=== PATIENT | male | born 1930 | race Caucasian/White ===

== ENCOUNTER 2018-08-04 22:08 | Inpatient (IN) | payer MEDICARE, MEDICAID ==
[2018-08-04] MEDS ORDERED: Sodium Chloride 0.9% 500 ML IV ONE (22:15)
[2018-08-04] MEDS ORDERED: HYDROmorphone 2 MG/ML SDV IVPUSH ONE (22:15)
[2018-08-04] MEDS ORDERED: Ondansetron 4 MG/2 ML SDV IVPUSH ONE (22:16)
--- NOTE | 2018-08-04 22:21 | EDM.PDOC ---
ED HPI GENERAL MEDICAL PROBLEM - General Chief Complaint: Abdominal Pain Stated Complaint: ABD PAIN Time Seen by Provider: 08/04/18 22:16 Source of Information: Reports: Patient - History of Present Illness INITIAL COMMENTS - FREE TEXT/NARRATIVE: Transferred from [facility] with LLQ abdominal pain, vomiting and fever to 101.8. 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: Reports: Acetaminophen - Related Data Allergies Allergy/AdvReac Type Severity Reaction Status Date / Time No Known Allergies Allergy Verified 08/04/18 22:34 Home Meds: Home Meds Acetaminophen [Tylenol] 650 mg PO Q4H PRN 05/21/13 [History] Carboxymethylcellulose Sodium [Refresh Liquigel 1%] 1 drop EYEBOTH TID 05/24/13 [History] Isosorbide Mononitrate [Isosorbide Mononitrate ER] 15 mg PO BEDTIME 05/24/13 [ History] SitaGLIPtin [Januvia] 50 mg PO DAILY 05/24/13 [History] Hydrocortisone/Aloe Vera [Hydrocortisone 1%] 1 applic TOP BID PRN 05/23/14 [ History] Magnesium Hydroxide [Milk of Magnesia] 30 ml PO DAILY PRN 05/23/14 [History] Multivit-Min/FA/Lycopene/Lut [Centrum Silver] 1 tab PO DAILY 05/23/14 [History] Aspirin [Shanika Chewable Aspirin] 81 mg PO DAILY 06/28/14 [History] Clopidogrel [Plavix] 75 mg PO DAILY 06/28/14 [History] Simvastatin 40 mg PO DAILY 06/28/14 [History] Bisacodyl 10 mg RC DAILY PRN 08/04/18 [History] Memantine HCl [Namenda] 10 mg PO BID 08/04/18 [History] Metoprolol Succinate [Toprol XL] 50 mg PO DAILY 08/04/18 [History] amLODIPine [Norvasc] 5 mg PO DAILY 08/04/18 [History] Past Medical History Cardiovascular History: Reports: CAD, High Cholesterol, Hypertension Respiratory History: Reports: COPD (02 dep) Gastrointestinal History: Reports: Diverticulosis, GI Bleed Neurological History: Reports: Alzheimers Disease Endocrine/Metabolic History: Reports: Diabetes, Type II - Past Surgical History Cardiovascular Surgical History: Reports: Coronary Artery Bypass GI Surgical History: Reports: Appendectomy, Cholecystectomy Social & Family History - Tobacco Use Smoking Status *Q: Former Smoker Tobacco Use Within Last Twelve Months: No ED ROS GENERAL - Review of Systems Review Of Systems: ROS reveals no pertinent complaints other than HPI. ( Alzheimer's) ED EXAM, GI/ABD - Physical Exam Exam: See Below Exam Limited By: No Limitations General Appearance: Alert, WD/WN, No Apparent Distress Ears: Normal External Exam Nose: Normal Inspection Throat/Mouth: Normal Oropharynx, No Airway Compromise Head: Atraumatic, Normocephalic Neck: Normal Inspection Respiratory/Chest: No Respiratory Distress, Lungs Clear, Normal Breath Sounds Cardiovascular: Regular Rate, Rhythm, No Murmur GI/Abdominal Exam: Normal Bowel Sounds, Soft, No Distention, Guarding, Tender ( moderate LLQ, mild LUQ) Back Exam: Full Range of Motion Extremities: Normal Range of Motion Neurological: Alert, No Motor/Sensory Deficits Skin Exam: Warm, Dry, Intact Course - Vital Signs Last Recorded V/S: Last Vital Signs Temp 37.4 C 08/04/18 22:08 Pulse 79 08/04/18 22:08 Resp 20 08/04/18 22:08 BP 140/57 L 08/04/18 22:08 Pulse Ox 91 L 08/04/18 22:10 - Orders/Labs/Meds Orders: Active Orders 24 hr Category Date Time Status Admission Status [Patient Status] [ADT] Routine ADT 08/04/18 23:56 Active Morrison Catheter Insertion [Insert Urinary Catheter] [OM. Care 08/04/18 22:30 Ordered PC] Q24H Oxygen Therapy Adult [Oxygen Therapy, ED] [RC] Care 08/04/18 22:10 Active ASDIRECTED Urinary Catheter Assessment [RC] QSHIFT Care 08/04/18 22:16 Active Abdomen Pelvis w Cont [CT] Stat Exams 08/04/18 22:53 Taken CULTURE BLOOD [BC] Urgent Lab 08/04/18 22:20 Received CULTURE BLOOD [BC] Urgent Lab 08/04/18 22:25 Received CULTURE URINE [RM] Stat Lab 08/04/18 22:18 Received Sodium Chloride 0.9% [Saline Flush] Med 08/04/18 22:11 Active 10 ml FLUSH ASDIRECTED PRN Blood Culture x2 Reflex Set [OM.PC] Urgent Oth 08/04/18 22:10 Ordered Saline Lock Insert [OM.PC] Routine Oth 08/04/18 22:11 Ordered Code Status [Resuscitation Status] Stat Resus Stat 08/04/18 22:15 Ordered Medication Orders Sodium Chloride (Saline Flush) 10 ml FLUSH ASDIRECTED PRN PRN Reason: Keep Vein Open Labs: Laboratory Tests 08/04/18 08/04/18 08/04/18 Range/Units 22:18 22:20 22:20 WBC 17.1 H (4.5-12.0) X10-3/uL RBC 5.96 H (4.30-5.75) x10(6)uL Hgb 18.3 H D (11.5-15.5) g/dL Hct 52.3 H (30.0-51.3) % MCV 87.8 (80-96) fL MCH 30.7 (27.7-33.6) pg MCHC 34.9 (32.2-35.4) g/dL RDW 13.6 (11.5-15.5) % Plt Count 171 (125-369) X10(3)uL MPV 7.9 (7.4-10.4) fL Add Manual Diff Yes Neutrophils % (Manual) 70 (46-82) % Band Neutrophils % 5 (0-6) % Lymphocytes % (Manual) 21 (13-37) % Monocytes % (Manual) 4 (4-12) % Sodium 140 (135-145) mmol/L Potassium 4.4 (3.5-5.3) mmol/L Chloride 105 (100-110) mmol/L Carbon Dioxide 26 (21-32) mmol/L BUN 26 H (7-18) mg/dL Creatinine 1.1 (0.70-1.30) mg/dL Est Cr Clr Drug Dosing 46.42 mL/min Estimated GFR (MDRD) > 60 (>60) BUN/Creatinine Ratio 23.6 H (9-20) Glucose 189 H (80-116) mg/dL Lactic Acid (0.4-2.2) mmol/L Calcium 9.0 (8.6-10.2) mg/dL Total Bilirubin 0.7 (0.1-1.3) mg/dL AST 16 (5-25) IU/L ALT 24 (12-36) U/L Alkaline Phosphatase 58 (56-112) IU/L Total Protein 6.5 (6.0-8.0) g/dL Albumin 3.0 L (3.2-4.6) g/dL Globulin 3.5 g/dL Albumin/Globulin Ratio 0.9 Amylase 27 (25-115) U/L Urine Color Yellow (YELLOW) Urine Appearance Slightly cloudy (CLEAR) Urine pH 5.0 (5.0-6.5) Ur Specific [place] 1.020 (1.010-1.025) Urine Protein 500 H (NEGATIVE) mg/dL Urine Glucose (UA) Normal (NEGATIVE) mg/dL Urine Ketones 15 H (NEGATIVE) mg/dL Urine Occult Blood Moderate H (NEGATIVE) Urine Nitrite Negative (NEGATIVE) Urine Bilirubin Small H (NEGATIVE) Urine Urobilinogen Normal (NEGATIVE) mg/dL Ur Leukocyte Esterase Large H (NEGATIVE) Urine RBC 5-10 (0) Urine WBC >100 H (0) Ur Squamous Epith Cells Few H (NS,R,O) Urine Bacteria Moderate H (NS) 08/04/18 Range/Units 22:20 WBC (4.5-12.0) X10-3/uL RBC (4.30-5.75) x10(6)uL Hgb (11.5-15.5) g/dL Hct (30.0-51.3) % MCV (80-96) fL MCH (27.7-33.6) pg MCHC (32.2-35.4) g/dL RDW (11.5-15.5) % Plt Count (125-369) X10(3)uL MPV (7.4-10.4) fL Add Manual Diff Neutrophils % (Manual) (46-82) % Band Neutrophils % (0-6) % Lymphocytes % (Manual) (13-37) % Monocytes % (Manual) (4-12) % Sodium (135-145) mmol/L Potassium (3.5-5.3) mmol/L Chloride (100-110) mmol/L Carbon Dioxide (21-32) mmol/L BUN (7-18) mg/dL Creatinine (0.70-1.30) mg/dL Est Cr Clr Drug Dosing mL/min Estimated GFR (MDRD) (>60) BUN/Creatinine Ratio (9-20) Glucose (80-116) mg/dL Lactic Acid 2.0 (0.4-2.2) mmol/L Calcium (8.6-10.2) mg/dL Total Bilirubin (0.1-1.3) mg/dL AST (5-25) IU/L ALT (12-36) U/L Alkaline Phosphatase (56-112) IU/L Total Protein (6.0-8.0) g/dL Albumin (3.2-4.6) g/dL Globulin g/dL Albumin/Globulin Ratio Amylase (25-115) U/L Urine Color (YELLOW) Urine Appearance (CLEAR) Urine pH (5.0-6.5) Ur Specific [place] (1.010-1.025) Urine Protein (NEGATIVE) mg/dL Urine Glucose (UA) (NEGATIVE) mg/dL Urine Ketones (NEGATIVE) mg/dL Urine Occult Blood (NEGATIVE) Urine Nitrite (NEGATIVE) Urine Bilirubin (NEGATIVE) Urine Urobilinogen (NEGATIVE) mg/dL Ur Leukocyte Esterase (NEGATIVE) Urine RBC (0) Urine WBC (0) Ur Squamous Epith Cells (NS,R,O) Urine Bacteria (NS) Meds: Medications Generic Name Dose Route Start Last Admin Trade Name Freq PRN Reason Stop Dose Admin Sodium Chloride 10 ml 08/04/18 22:11 Saline Flush FLUSH ASDIRECTED PRN Keep Vein Open Discontinued Medications Generic Name Dose Route Start Last Admin Trade Name Freq PRN Reason Stop Dose Admin Hydromorphone HCl 0.5 mg 08/04/18 22:15 08/04/18 23:21 Dilaudid IVPUSH 08/04/18 22:16 0.5 mg ONETIME ONE Administration Sodium Chloride 500 mls @ 500 mls/hr 08/04/18 22:15 08/04/18 23:20 Normal Saline IV 08/04/18 23:14 500 mls/hr .BOLUS ONE Administration Piperacillin Sod/Tazobactam 50 mls @ 100 mls/hr 08/04/18 23:22 08/04/18 23:27 Sod 3.375 gm/ Sodium Chloride IV 08/04/18 23:51 100 mls/hr .ONCE ONE Administration Iopamidol 75 ml 08/04/18 22:59 08/04/18 23:15 Isovue-370 (76%) IV 08/04/18 23:00 75 ml ONETIME ONE Administration Ondansetron HCl 4 mg 08/04/18 22:16 08/04/18 23:21 Zofran IVPUSH 08/04/18 22:17 4 mg ONETIME ONE Administration - Radiology Interpretation Free Text/Narrative:: CT Abd/Pelvis w/ IV contrast: Two small pancreatic pseudocysts, increase size left adrenal myelolipoma, diverticulosis, no signs of diverticulitis, prostate enlargement, moderate thickening of the wall of the urinary bladder. CT Results Date: 08/04/18 CT Results Time: 23:23 Departure - Departure Time of Disposition: 00:01 Disposition: Admitted As Inpatient 66 Condition: Fair Clinical Impression: Fever Qualifiers: Fever type: unspecified Qualified Code(s): R50.9 - Fever, unspecified Abdominal pain Qualifiers: Abdominal location: left lower quadrant Qualified Code(s): R10.32 - Left lower quadrant pain - Discharge Information *PRESCRIPTION DRUG MONITORING PROGRAM REVIEWED*: No *COPY OF PRESCRIPTION DRUG MONITORING REPORT IN PATIENT ROSEMARIE: Not Applicable Referrals: Hernan Dhaliwal MD [Primary Care Provider] - Forms: ED Department Discharge - My Orders Last 24 Hours: My Active Orders 08/04/18 22:10 Oxygen Therapy Adult [Oxygen Therapy, ED] [RC] ASDIRECTED Blood Culture x2 Reflex Set [OM.PC] Urgent 08/04/18 22:11 Sodium Chloride 0.9% [Saline Flush] 10 ml FLUSH ASDIRECTED PRN Saline Lock Insert [OM.PC] Routine 08/04/18 22:15 Code Status [Resuscitation Status] Stat 08/04/18 22:16 Urinary Catheter Assessment [RC] QSHIFT 08/04/18 22:18 CULTURE URINE [RM] Stat 08/04/18 22:20 CULTURE BLOOD [BC] Urgent 08/04/18 22:25 CULTURE BLOOD [BC] Urgent 08/04/18 22:30 Morrison Catheter Insertion [Insert Urinary Catheter] [OM.PC] Q24H 08/04/18 22:53 Abdomen Pelvis w Cont [CT] Stat 08/04/18 23:56 Admission Status [Patient Status] [ADT] Routine - Assessment/Plan Last 24 Hours: My Active Orders 08/04/18 22:10 Oxygen Therapy Adult [Oxygen Therapy, ED] [RC] ASDIRECTED Blood Culture x2 Reflex Set [OM.PC] Urgent 08/04/18 22:11 Sodium Chloride 0.9% [Saline Flush] 10 ml FLUSH ASDIRECTED PRN Saline Lock Insert [OM.PC] Routine 08/04/18 22:15 Code Status [Resuscitation Status] Stat 08/04/18 22:16 Urinary Catheter Assessment [RC] QSHIFT 08/04/18 22:18 CULTURE URINE [RM] Stat 08/04/18 22:20 CULTURE BLOOD [BC] Urgent 08/04/18 22:25 CULTURE BLOOD [BC] Urgent 08/04/18 22:30 Morrison Catheter Insertion [Insert Urinary Catheter] [OM.PC] Q24H 08/04/18 22:53 Abdomen Pelvis w Cont [CT] Stat 08/04/18 23:56 Admission Status [Patient Status] [ADT] Routine
[2018-08-04] MEDS ORDERED: Iopamidol 755 Mg/ML 75 ML Bottle IV ONE (22:59)
[2018-08-04] MEDS ORDERED: Piperacillin/Tazobactam 3.375 GM in Sodium Chloride 0.9% 50 ML IV ONE (23:22)
[2018-08-05] MEDS ORDERED: Ondansetron 4 MG/2 ML SDV IVPUSH PRN (00:09)
[2018-08-05] MEDS ORDERED: HYDROmorphone 2 MG/ML SDV IVPUSH PRN (00:09)
[2018-08-05] MEDS ORDERED: Sodium Chloride 0.9% 1,000 ML IV SCH (00:15)
[2018-08-05] MEDS: Piperacillin/Tazobactam 3.375 GM in Sodium Chloride 0.9% 50 ML IV SCH ×4 (04:56→17:33)
[2018-08-05] MEDS ORDERED: Simvastatin 40 MG Tab PO SCH (09:00)
[2018-08-05] MEDS ORDERED: Metoprolol Succinate 25 MG Tab.ER PO SCH (09:00)
[2018-08-05] MEDS: Acetaminophen 325 MG Tab PO PRN ×2 (09:49→16:19)
[2018-08-05] MEDS: Aspirin 81 MG Tab.Chew PO SCH (09:50)
[2018-08-05] MEDS: Clopidogrel 75 MG Tab PO SCH (09:51)
[2018-08-05] MEDS: Memantine 10 MG Tab PO SCH ×2 (09:51→21:42)
[2018-08-05] MEDS: amLODIPine 5 MG Tab PO SCH (09:51)
[2018-08-05] MEDS: Carboxymethylcellulose Sodium 1% Ophth Gel 15 ML Bottle EYEBOTH SCH ×3 (09:52→21:42)
[2018-08-05] MEDS: Metoprolol Succinate 50 MG Tab.ER PO SCH (09:52)
--- NOTE | 2018-08-05 09:56 | PCM.HP ---
H&P History of Present Illness - General Date of Service: 08/05/18 Admit Problem/Dx: Admission Diagnosis/Problem Admission Diagnosis/Problem UTI, Urinary tract infectious disease Source of Information: Patient History Limitations: Reports: No Limitations - History of Present Illness Initial Comments - Free Text/Narative: Freeman is an 88 yo us[facility] patient with abdominal pain of sudden onset,orn day duration, associated with left upper quadrant radiating down to the left lower quadrant ,with one episode of vomiting, but no stool disturbance. No illness symptoms has had a cough and fever upon presentation to the ER. Freeman is hard of hearing and history difficult to obtain. - Related Data Allergies/Adverse Reactions: Allergies Allergy/AdvReac Type Severity Reaction Status Date / Time No Known Allergies Allergy Verified 08/04/18 22:34 Home Medications: Home Meds Acetaminophen [Tylenol] 650 mg PO Q4H PRN 05/21/13 [History] Carboxymethylcellulose Sodium [Refresh Liquigel 1%] 1 drop EYEBOTH TID 05/24/13 [History] Isosorbide Mononitrate [Isosorbide Mononitrate ER] 15 mg PO WITHDINNER 05/24/13 [History] SitaGLIPtin [Januvia] 50 mg PO DAILY 05/24/13 [History] Hydrocortisone/Aloe Vera [Hydrocortisone 1%] 1 applic TOP BID PRN 05/23/14 [ History] Magnesium Hydroxide [Milk of Magnesia] 30 ml PO DAILY PRN 05/23/14 [History] Multivit-Min/FA/Lycopene/Lut [Centrum Silver] 1 tab PO DAILY 05/23/14 [History] Clopidogrel [Plavix] 75 mg PO DAILY 06/28/14 [History] Simvastatin 20 mg PO WITHDINNER 06/28/14 [History] Bisacodyl 10 mg RC DAILY PRN 08/04/18 [History] Memantine HCl [Namenda] 10 mg PO BID 08/04/18 [History] Metoprolol Succinate [Toprol XL] 50 mg PO DAILY 08/04/18 [History] amLODIPine [Norvasc] 5 mg PO DAILY 08/04/18 [History] Aspirin [Halfprin] 81 mg PO DAILY 08/05/18 [History] Triamcinolone Acetonide [Triamcinolone Acetonide 0.1% Crm] 1 applic TOP BID PRN 08/05/18 [History] Past Medical History HEENT History: Reports: Cataract, Hard of Hearing, Impaired Vision, Macular Degeneration Cardiovascular History: Reports: CAD, High Cholesterol, Hypertension Respiratory History: Reports: COPD Gastrointestinal History: Reports: Diverticulosis, GI Bleed Musculoskeletal History: Reports: Arthritis Neurological History: Reports: Alzheimers Disease Psychiatric History: Reports: Dementia Endocrine/Metabolic History: Reports: Diabetes, Type II Other Endocrine/Metabolic History: Hyperlipidemia - Past Surgical History HEENT Surgical History: Reports: Cataract Surgery Cardiovascular Surgical History: Reports: Coronary Artery Bypass GI Surgical History: Reports: Appendectomy, Cholecystectomy Social & Family History - Family History Family Medical History: Noncontributory - Tobacco Use Smoking Status *Q: Former Smoker Used Tobacco, but Quit: No Second Hand Smoke Exposure: No - Caffeine Use Caffeine Use: Reports: Coffee - Recreational Drug Use Recreational Drug Use: No H&P Review of Systems - Review of Systems: Review Of Systems: ROS reveals no pertinent complaints other than HPI. Exam - Exam Exam: See Below - Vital Signs Vital Signs: Last Vital Signs Temp 98.1 F 08/05/18 04:05 Pulse 68 08/05/18 09:52 Resp 19 08/05/18 04:05 BP 112/58 L 08/05/18 09:52 Pulse Ox 91 L 08/05/18 07:49 Weight: 76.657 kg - Exam Quality Assessment: Supplemental Oxygen General: Alert, Oriented HEENT: PERRLA Neck: Supple Lungs: Rales Cardiovascular: Regular Rate GI/Abdominal Exam: Normal Bowel Sounds, Distended, Tender (LLQ). No: Non-Tender (Male) Exam: No Hernia Back Exam: Normal Inspection Extremities: Normal Inspection Skin: Warm Neurological: Cranial Nerves Intact Psychiatric: Alert, Normal Affect - Patient Data Lab Results Last 24 hrs: Laboratory Results - last 24 hr 08/04/18 08/04/18 08/04/18 Range/Units 22:18 22:20 22:20 WBC 17.1 H (4.5-12.0) X10-3/uL RBC 5.96 H (4.30-5.75) x10(6)uL Hgb 18.3 H D (11.5-15.5) g/dL Hct 52.3 H (30.0-51.3) % MCV 87.8 (80-96) fL MCH 30.7 (27.7-33.6) pg MCHC 34.9 (32.2-35.4) g/dL RDW 13.6 (11.5-15.5) % Plt Count 171 (125-369) X10(3)uL MPV 7.9 (7.4-10.4) fL Add Manual Diff Yes Neutrophils % (Manual) 70 (46-82) % Band Neutrophils % 5 (0-6) % Lymphocytes % (Manual) 21 (13-37) % Monocytes % (Manual) 4 (4-12) % Sodium 140 (135-145) mmol/L Potassium 4.4 (3.5-5.3) mmol/L Chloride 105 (100-110) mmol/L Carbon Dioxide 26 (21-32) mmol/L BUN 26 H (7-18) mg/dL Creatinine 1.1 (0.70-1.30) mg/dL Est Cr Clr Drug Dosing 46.42 mL/min Estimated GFR (MDRD) > 60 (>60) BUN/Creatinine Ratio 23.6 H (9-20) Glucose 189 H (80-116) mg/dL Lactic Acid (0.4-2.2) mmol/L Calcium 9.0 (8.6-10.2) mg/dL Total Bilirubin 0.7 (0.1-1.3) mg/dL AST 16 (5-25) IU/L ALT 24 (12-36) U/L Alkaline Phosphatase 58 (56-112) IU/L Total Protein 6.5 (6.0-8.0) g/dL Albumin 3.0 L (3.2-4.6) g/dL Globulin 3.5 g/dL Albumin/Globulin Ratio 0.9 Amylase 27 (25-115) U/L Urine Color Yellow (YELLOW) Urine Appearance Slightly cloudy (CLEAR) Urine pH 5.0 (5.0-6.5) Ur Specific [place] 1.020 (1.010-1.025) Urine Protein 500 H (NEGATIVE) mg/dL Urine Glucose (UA) Normal (NEGATIVE) mg/dL Urine Ketones 15 H (NEGATIVE) mg/dL Urine Occult Blood Moderate H (NEGATIVE) Urine Nitrite Negative (NEGATIVE) Urine Bilirubin Small H (NEGATIVE) Urine Urobilinogen Normal (NEGATIVE) mg/dL Ur Leukocyte Esterase Large H (NEGATIVE) Urine RBC 5-10 (0) Urine WBC >100 H (0) Ur Squamous Epith Cells Few H (NS,R,O) Urine Bacteria Moderate H (NS) 08/04/18 08/05/18 08/05/18 Range/Units 22:20 06:05 06:05 WBC 17.5 H (4.5-12.0) X10-3/uL RBC 5.32 (4.30-5.75) x10(6)uL Hgb 16.4 H (11.5-15.5) g/dL Hct 47.1 (30.0-51.3) % MCV 88.6 (80-96) fL MCH 30.8 (27.7-33.6) pg MCHC 34.8 (32.2-35.4) g/dL RDW 13.5 (11.5-15.5) % Plt Count 160 (125-369) X10(3)uL MPV 8.3 (7.4-10.4) fL Add Manual Diff Yes Neutrophils % (Manual) 76 (46-82) % Band Neutrophils % 1 (0-6) % Lymphocytes % (Manual) 22 (13-37) % Monocytes % (Manual) 1 L (4-12) % Sodium 141 (135-145) mmol/L Potassium 4.3 (3.5-5.3) mmol/L Chloride 107 (100-110) mmol/L Carbon Dioxide 25 (21-32) mmol/L BUN 26 H (7-18) mg/dL Creatinine 1.2 (0.70-1.30) mg/dL Est Cr Clr Drug Dosing 39.78 mL/min Estimated GFR (MDRD) 57 L (>60) BUN/Creatinine Ratio 21.7 H (9-20) Glucose 179 H (80-116) mg/dL Lactic Acid 2.0 (0.4-2.2) mmol/L Calcium 8.4 L (8.6-10.2) mg/dL Total Bilirubin (0.1-1.3) mg/dL AST (5-25) IU/L ALT (12-36) U/L Alkaline Phosphatase (56-112) IU/L Total Protein (6.0-8.0) g/dL Albumin (3.2-4.6) g/dL Globulin g/dL Albumin/Globulin Ratio Amylase (25-115) U/L Urine Color (YELLOW) Urine Appearance (CLEAR) Urine pH (5.0-6.5) Ur Specific [place] (1.010-1.025) Urine Protein (NEGATIVE) mg/dL Urine Glucose (UA) (NEGATIVE) mg/dL Urine Ketones (NEGATIVE) mg/dL Urine Occult Blood (NEGATIVE) Urine Nitrite (NEGATIVE) Urine Bilirubin (NEGATIVE) Urine Urobilinogen (NEGATIVE) mg/dL Ur Leukocyte Esterase (NEGATIVE) Urine RBC (0) Urine WBC (0) Ur Squamous Epith Cells (NS,R,O) Urine Bacteria (NS) Result Diagrams: 08/05/18 06:05 08/05/18 06:05 - Problem List (1) Abdominal pain SNOMED Code(s): 14607056 ICD Code: R10.9 - UNSPECIFIED ABDOMINAL PAIN Status: Acute Current Visit : Yes Qualifiers: Abdominal location: left lower quadrant Qualified Code(s): R10.32 - Left lower quadrant pain (2) CAP (community acquired pneumonia) SNOMED Code(s): 304872357 ICD Code: J18.9 - PNEUMONIA, UNSPECIFIED ORGANISM Status: Acute Current Visit: Yes Qualifiers: Laterality: left (3) Hard of hearing SNOMED Code(s): 35851652 ICD Code: H91.90 - UNSPECIFIED HEARING LOSS, UNSPECIFIED EAR Status: Chronic Current Visit: Yes Qualifiers: Hearing loss type: unspecified (4) UTI (urinary tract infection) SNOMED Code(s): 80451001 ICD Code: N39.0 - URINARY TRACT INFECTION, SITE NOT SPECIFIED Status: Acute Current Visit: Yes Qualifiers: Urinary tract infection type: acute pyelonephritis Qualified Code(s): N10 - Acute pyelonephritis (5) Diabetes mellitus SNOMED Code(s): 21901649 ICD Code: E11.9 - TYPE 2 DIABETES MELLITUS WITHOUT COMPLICATIONS Status: Acute Current Visit: No Problem List Initiated/Reviewed/Updated: Yes Orders Last 24hrs: Active Orders 24 hr Category Date Time Status Admission Status [Patient Status] [ADT] Routine ADT 08/04/18 23:56 Active Antiembolic Devices [RC] .Routine Care 08/05/18 00:06 Active Morrison Catheter Insertion [Insert Urinary Catheter] [OM. Care 08/04/18 22:30 Ordered PC] Q24H Height and Weight [RC] UPON Care 08/05/18 00:05 Active Intake and Output [RC] QSHIFT Care 08/05/18 00:05 Active Notify Provider Consults [RC] ASDIRECTED Care 08/05/18 09:54 Ordered Notify Provider Vital Signs [RC] ASDIRECTED Care 08/05/18 00:06 Active Oxygen Therapy [RC] CONTINUOUS Care 08/05/18 00:05 Active Pulse Oximetry [RC] PRN Care 08/05/18 00:05 Active Up With Assistance [RC] ASDIRECTED Care 08/05/18 00:05 Active VTE/DVT Education [RC] Click to Edit Care 08/05/18 00:06 Active Vital Signs [RC] Q4H Care 08/05/18 00:05 Active Consult to Physician [CONS] Urgent Cons 08/05/18 09:54 Ordered Full Liquid Diet [DIET] Diet 08/05/18 Breakfast Active Abdomen Pelvis w Cont [CT] Stat Exams 08/04/18 22:53 Taken Chest 2V [CR] Routine Exams 08/05/18 09:52 Ordered C-REACTIVE PROTEIN [CHEM] AM Lab 08/06/18 05:11 Ordered CBC WITH AUTO DIFF [HEME] AM Lab 08/06/18 05:11 Ordered COMPREHENSIVE METABOLIC PN,CMP [CHEM] AM Lab 08/06/18 05:11 Ordered CULTURE BLOOD [BC] Urgent Lab 08/04/18 22:20 Received CULTURE BLOOD [BC] Urgent Lab 08/04/18 22:25 Received CULTURE URINE [RM] Stat Lab 08/04/18 22:18 Received Acetaminophen [Tylenol] Med 08/05/18 00:08 Active 650 mg PO Q6H PRN Aspirin Med 08/05/18 09:00 Active 81 mg PO DAILY Carboxymethylcellulose Sodium [Refresh Liquigel 1%] Med 08/05/18 09:00 Active 0 ml EYEBOTH TID Clopidogrel [Plavix] Med 08/05/18 09:00 Active 75 mg PO DAILY Isosorbide Mononitrate [Imdur] Med 08/05/18 18:00 Active 15 mg PO WITHDINNER Ketorolac [Toradol] Med 08/05/18 09:55 Ordered 15 mg IVPUSH Q6H PRN Memantine [Namenda] Med 08/05/18 09:00 Active 10 mg PO BID Metoprolol Succinate [Toprol XL] Med 08/05/18 09:00 Active 50 mg PO DAILY Ondansetron [Zofran] Med 08/05/18 00:09 Active 4 mg IVPUSH Q6H PRN Piperacillin/Tazobactam [Zosyn] 3.375 gm Med 08/05/18 06:00 Active Sodium Chloride 0.9% [Normal Saline] 50 ml IV Q6H SitaGLIPtin [Januvia] Med 08/05/18 09:00 Active 50 mg PO DAILY Sodium Chloride 0.9% [Normal Saline] 1,000 ml Med 08/05/18 00:15 Active IV ASDIRECTED Sodium Chloride 0.9% [Saline Flush] Med 08/04/18 22:11 Active 10 ml FLUSH ASDIRECTED PRN amLODIPine [Norvasc] Med 08/05/18 09:00 Active 5 mg PO DAILY Blood Culture x2 Reflex Set [OM.PC] Urgent Oth 08/04/18 22:10 Ordered DVT/VTE Prophylaxis Reflex [OM.PC] Per Unit Routine Oth 08/05/18 00:05 Ordered Saline Lock Insert [OM.PC] Routine Oth 08/04/18 22:11 Ordered Code Status [Resuscitation Status] Stat Resus Stat 08/04/18 22:15 Ordered Medication Orders Acetaminophen (Tylenol) 650 mg PO Q6H PRN PRN Reason: Fever Last Admin: 08/05/18 09:49 Dose: 650 mg Amlodipine Besylate (Norvasc) 5 mg PO DAILY [facility] Last Admin: 08/05/18 09:51 Dose: 5 mg Artificial Tears (Refresh Liquigel 1%) 0 ml EYEBOTH TID [facility] Last Admin: 08/05/18 09:52 Dose: 1 drop Aspirin (Aspirin) 81 mg PO DAILY [facility] Last Admin: 08/05/18 09:50 Dose: 81 mg Clopidogrel Bisulfate (Plavix) 75 mg PO DAILY [facility] Last Admin: 08/05/18 09:51 Dose: 75 mg Sodium Chloride (Normal Saline) 1,000 mls @ 100 mls/hr IV ASDIRECTED [facility] Last Admin: 08/05/18 01:13 Dose: 100 mls/hr Piperacillin Sod/Tazobactam (Sod 3.375 gm/ Sodium Chloride) 50 mls @ 100 mls/ hr IV Q6H [facility] Last Admin: 08/05/18 05:01 Dose: Not Given Admin: 08/05/18 04:56 Dose: 100 mls/hr Isosorbide Mononitrate (Imdur) [facility] Ketorolac Tromethamine (Toradol) 15 mg IVPUSH Q6H PRN PRN Reason: Pain Stop: 08/10/18 09:55 Memantine (Namenda) 10 mg PO BID [facility] Last Admin: 08/05/18 09:51 Dose: 10 mg Metoprolol Succinate (Toprol Xl) 50 mg PO DAILY [facility] Last Admin: 08/05/18 09:52 Dose: 50 mg Ondansetron HCl (Zofran) 4 mg IVPUSH Q6H PRN PRN Reason: Nausea/Vomiting Sitagliptin Phosphate (Januvia) 50 mg PO DAILY [facility] Last Admin: 08/05/18 09:51 Dose: 50 mg Sodium Chloride (Saline Flush) 10 ml FLUSH ASDIRECTED PRN PRN Reason: Keep Vein Open Assessment/Plan Comment:: Chest x-ray done today showed some left upper lobe pneumonia possibly CHF. I will give a one-time dose of Lasix, and continue Zosyn for antibiotic. Consulted Dr. Negron for the abdominal tenderness, since it is out of portion lab findings. The CT was fairly unremarkable.
[2018-08-05] MEDS: Ketorolac 30 MG/ML SDV IVPUSH PRN ×2 (12:03→20:07)
[2018-08-05] MEDS: Sodium Chloride 0.9% 10 ML Syringe FLUSH PRN ×3 (12:03→20:06)
--- NOTE | 2018-08-05 13:13 | CR ---
INDICATION: Abdominal pain, fever, question community acquired pneumonia. CHEST PA AND LATERAL: AP and lateral views of the chest were obtained and compared with 05/24/14 and 05/17/11 again revealing the heart to be enlarged with post-median sternotomy change. Diminished bone density suggests osteoporosis but should be correlated clinically. Relatively poor inspiration emphasizes markings without a definite active infiltrate or effusion however, the upper lung field and pulmonary vasculature does appear to be slightly prominent on the left raising the question of a mild degree of CHF. Also there may be infiltrate in the left lower lobe compatible with a pneumonia in that area. IMPRESSION: 1. Findings suggest possibility of pneumonia at the left lower lobe. 2. Cannot exclude a mild degree of CHF in a patient with ASHD and cardiomegaly who is post median sternotomy. 3. Probable osteoporosis--correlate clinically. Report was called to Dr. Rowe at 1145 hours [facility]
--- NOTE | 2018-08-05 13:45 | PCM.CONS ---
H&P History of Present Illness - General Date of Service: 08/05/18 Admit Problem/Dx: Admission Diagnosis/Problem Admission Diagnosis/Problem UTI, Urinary tract infectious disease Source of Information: Patient, Old Records History Limitations: Reports: Altered Mental Status - History of Present Illness Duration of Symptoms: Reports: Day(s): (2) Location: Reports: Abdomen (LLQ) Quality: Reports: Sharp Severity: Severe Worsens with: Reports: Movement Associated Symptoms: Denies: Nausea/Vomiting (since admitted) Left Lower Abdomen Pain Score (Numeric/FACES): 5 - Related Data Allergies/Adverse Reactions: Allergies Allergy/AdvReac Type Severity Reaction Status Date / Time No Known Allergies Allergy Verified 08/04/18 22:34 Home Medications: Home Meds Acetaminophen [Tylenol] 650 mg PO Q4H PRN 05/21/13 [History] Carboxymethylcellulose Sodium [Refresh Liquigel 1%] 1 drop EYEBOTH TID 05/24/13 [History] Isosorbide Mononitrate [Isosorbide Mononitrate ER] 15 mg PO WITHDINNER 05/24/13 [History] SitaGLIPtin [Januvia] 50 mg PO DAILY 05/24/13 [History] Hydrocortisone/Aloe Vera [Hydrocortisone 1%] 1 applic TOP BID PRN 05/23/14 [ History] Magnesium Hydroxide [Milk of Magnesia] 30 ml PO DAILY PRN 05/23/14 [History] Multivit-Min/FA/Lycopene/Lut [Centrum Silver] 1 tab PO DAILY 05/23/14 [History] Clopidogrel [Plavix] 75 mg PO DAILY 06/28/14 [History] Simvastatin 20 mg PO WITHDINNER 06/28/14 [History] Bisacodyl 10 mg RC DAILY PRN 08/04/18 [History] Memantine HCl [Namenda] 10 mg PO BID 08/04/18 [History] Metoprolol Succinate [Toprol XL] 50 mg PO DAILY 08/04/18 [History] amLODIPine [Norvasc] 5 mg PO DAILY 08/04/18 [History] Aspirin [Halfprin] 81 mg PO DAILY 08/05/18 [History] Triamcinolone Acetonide [Triamcinolone Acetonide 0.1% Crm] 1 applic TOP BID PRN 08/05/18 [History] Past Medical History HEENT History: Reports: Cataract, Hard of Hearing, Impaired Vision, Macular Degeneration Cardiovascular History: Reports: CAD, High Cholesterol, Hypertension Respiratory History: Reports: COPD Gastrointestinal History: Reports: Diverticulosis, GI Bleed Musculoskeletal History: Reports: Arthritis Neurological History: Reports: Alzheimers Disease Psychiatric History: Reports: Dementia Endocrine/Metabolic History: Reports: Diabetes, Type II Other Endocrine/Metabolic History: Hyperlipidemia - Past Surgical History HEENT Surgical History: Reports: Cataract Surgery Cardiovascular Surgical History: Reports: Coronary Artery Bypass GI Surgical History: Reports: Appendectomy, Cholecystectomy Social & Family History - Family History Family Medical History: Noncontributory - Tobacco Use Smoking Status *Q: Former Smoker Used Tobacco, but Quit: No Second Hand Smoke Exposure: No - Caffeine Use Caffeine Use: Reports: Coffee - Recreational Drug Use Recreational Drug Use: No H&P Review of Systems - Review of Systems: Review Of Systems: See Below General: Reports: Fever Pulmonary: Reports: Shortness of Breath Cardiovascular: Reports: No Symptoms Gastrointestinal: Reports: Abdominal Pain (LLQ), Other (2 BMs today) Psychiatric: Reports: Confusion Exam - Exam Exam: See Below - Vital Signs Vital Signs: Last Vital Signs Temp 98.1 F 08/05/18 04:05 Pulse 68 08/05/18 09:52 Resp 19 08/05/18 04:05 BP 112/58 L 08/05/18 09:52 Pulse Ox 91 L 08/05/18 07:49 Weight: 76.657 kg - Exam GI/Abdominal Exam: Soft, No Mass, Tender (in LLQ). No: Hernia - Patient Data Lab Results Last 24 hrs: Laboratory Results - last 24 hr 08/04/18 08/04/18 08/04/18 Range/Units 22:18 22:20 22:20 WBC 17.1 H (4.5-12.0) X10-3/uL RBC 5.96 H (4.30-5.75) x10(6)uL Hgb 18.3 H D (11.5-15.5) g/dL Hct 52.3 H (30.0-51.3) % MCV 87.8 (80-96) fL MCH 30.7 (27.7-33.6) pg MCHC 34.9 (32.2-35.4) g/dL RDW 13.6 (11.5-15.5) % Plt Count 171 (125-369) X10(3)uL MPV 7.9 (7.4-10.4) fL Add Manual Diff Yes Neutrophils % (Manual) 70 (46-82) % Band Neutrophils % 5 (0-6) % Lymphocytes % (Manual) 21 (13-37) % Monocytes % (Manual) 4 (4-12) % Sodium 140 (135-145) mmol/L Potassium 4.4 (3.5-5.3) mmol/L Chloride 105 (100-110) mmol/L Carbon Dioxide 26 (21-32) mmol/L BUN 26 H (7-18) mg/dL Creatinine 1.1 (0.70-1.30) mg/dL Est Cr Clr Drug Dosing 46.42 mL/min Estimated GFR (MDRD) > 60 (>60) BUN/Creatinine Ratio 23.6 H (9-20) Glucose 189 H (80-116) mg/dL Lactic Acid (0.4-2.2) mmol/L Calcium 9.0 (8.6-10.2) mg/dL Total Bilirubin 0.7 (0.1-1.3) mg/dL AST 16 (5-25) IU/L ALT 24 (12-36) U/L Alkaline Phosphatase 58 (56-112) IU/L Total Protein 6.5 (6.0-8.0) g/dL Albumin 3.0 L (3.2-4.6) g/dL Globulin 3.5 g/dL Albumin/Globulin Ratio 0.9 Amylase 27 (25-115) U/L Urine Color Yellow (YELLOW) Urine Appearance Slightly cloudy (CLEAR) Urine pH 5.0 (5.0-6.5) Ur Specific [place] 1.020 (1.010-1.025) Urine Protein 500 H (NEGATIVE) mg/dL Urine Glucose (UA) Normal (NEGATIVE) mg/dL Urine Ketones 15 H (NEGATIVE) mg/dL Urine Occult Blood Moderate H (NEGATIVE) Urine Nitrite Negative (NEGATIVE) Urine Bilirubin Small H (NEGATIVE) Urine Urobilinogen Normal (NEGATIVE) mg/dL Ur Leukocyte Esterase Large H (NEGATIVE) Urine RBC 5-10 (0) Urine WBC >100 H (0) Ur Squamous Epith Cells Few H (NS,R,O) Urine Bacteria Moderate H (NS) 08/04/18 08/05/18 08/05/18 Range/Units 22:20 06:05 06:05 WBC 17.5 H (4.5-12.0) X10-3/uL RBC 5.32 (4.30-5.75) x10(6)uL Hgb 16.4 H (11.5-15.5) g/dL Hct 47.1 (30.0-51.3) % MCV 88.6 (80-96) fL MCH 30.8 (27.7-33.6) pg MCHC 34.8 (32.2-35.4) g/dL RDW 13.5 (11.5-15.5) % Plt Count 160 (125-369) X10(3)uL MPV 8.3 (7.4-10.4) fL Add Manual Diff Yes Neutrophils % (Manual) 76 (46-82) % Band Neutrophils % 1 (0-6) % Lymphocytes % (Manual) 22 (13-37) % Monocytes % (Manual) 1 L (4-12) % Sodium 141 (135-145) mmol/L Potassium 4.3 (3.5-5.3) mmol/L Chloride 107 (100-110) mmol/L Carbon Dioxide 25 (21-32) mmol/L BUN 26 H (7-18) mg/dL Creatinine 1.2 (0.70-1.30) mg/dL Est Cr Clr Drug Dosing 39.78 mL/min Estimated GFR (MDRD) 57 L (>60) BUN/Creatinine Ratio 21.7 H (9-20) Glucose 179 H (80-116) mg/dL Lactic Acid 2.0 (0.4-2.2) mmol/L Calcium 8.4 L (8.6-10.2) mg/dL Total Bilirubin (0.1-1.3) mg/dL AST (5-25) IU/L ALT (12-36) U/L Alkaline Phosphatase (56-112) IU/L Total Protein (6.0-8.0) g/dL Albumin (3.2-4.6) g/dL Globulin g/dL Albumin/Globulin Ratio Amylase (25-115) U/L Urine Color (YELLOW) Urine Appearance (CLEAR) Urine pH (5.0-6.5) Ur Specific Gur[place] (1.010-1.025) Urine Protein (NEGATIVE) mg/dL Urine Glucose (UA) (NEGATIVE) mg/dL Urine Ketones (NEGATIVE) mg/dL Urine Occult Blood (NEGATIVE) Urine Nitrite (NEGATIVE) Urine Bilirubin (NEGATIVE) Urine Urobilinogen (NEGATIVE) mg/dL Ur Leukocyte Esterase (NEGATIVE) Urine RBC (0) Urine WBC (0) Ur Squamous Epith Cells (NS,R,O) Urine Bacteria (NS) Result Diagrams: 08/06/18 06:55 08/06/18 06:55 Imaging Impressions Last 24 hrs: CT scan reviewed and i do not see strong evidence of diverticulitis Consult PN Assessment/Plan Procedures: Procedures BLOOD TYPING SEROLOGIC ABO (05/23/14) BLOOD TYPING SEROLOGIC RH(D) (05/23/14) CATARACT SURG W/IOL 1 STAGE (06/29/13) CHEST X-RAY 2VW FRONTAL&LATL (05/23/14) COLONOSCOPY W/LESION REMOVAL (06/29/14) COMPATIBILITY TEST ANTIGLOB (05/23/14) COMPATIBILITY TEST SPIN (05/23/14) COMPLETE CBC W/AUTO DIFF WBC (05/23/14) COMPREHEN METABOLIC PANEL (05/23/14) EMERGENCY DEPT VISIT (05/23/14) EMERGENCY DEPT VISIT (05/23/14) HEMOGLOBIN (05/23/14) HYDRATION IV INFUSION INIT (05/23/14) METABOLIC PANEL TOTAL CA (05/23/14) PROTHROMBIN TIME (05/23/14) RBC ANTIBODY SCREEN (05/23/14) ROUTINE VENIPUNCTURE (05/23/14) TISSUE EXAM BY PATHOLOGIST (06/29/14) Problem List Initiated/Reviewed/Updated: Yes Plan: Suspect diverticulitis wven though CT scan does not show strong evidence of it. Would continue IV antibiotics and pain meds, Recheck WBC in am. Will folloew
[2018-08-05] MEDS ORDERED: Furosemide 20 MG/2 ML VIAL IVPUSH ONE (17:13)
[2018-08-05] MEDS: Isosorbide Mononitrate 30 MG Tab.ER PO SCH (19:07)
[2018-08-06] MEDS: Piperacillin/Tazobactam 3.375 GM in Sodium Chloride 0.9% 50 ML IV SCH ×2 (00:05→06:22)
[2018-08-06] MEDS: Sodium Chloride 0.9% 10 ML Syringe FLUSH PRN ×5 (00:06→17:18)
[2018-08-06] MEDS: Acetaminophen 325 MG Tab PO PRN (00:17)
[2018-08-06] MEDS: Ketorolac 30 MG/ML SDV IVPUSH PRN (01:54)
[2018-08-06] MEDS: Metoprolol Succinate 50 MG Tab.ER PO SCH (08:32)
[2018-08-06] MEDS: Memantine 10 MG Tab PO SCH ×2 (08:32→20:36)
[2018-08-06] MEDS: Aspirin 81 MG Tab.Chew PO SCH (08:32)
[2018-08-06] MEDS: Carboxymethylcellulose Sodium 1% Ophth Gel 15 ML Bottle EYEBOTH SCH ×3 (08:35→20:36)
[2018-08-06] MEDS: Clopidogrel 75 MG Tab PO SCH (08:35)
[2018-08-06] MEDS: amLODIPine 5 MG Tab PO SCH (08:35)
[2018-08-06] MEDS ORDERED: Magnesium Hydroxide 400 MG/5 ML Susp 30 ML Cup PO PRN (08:47)
--- NOTE | 2018-08-06 08:47 | PCM.PN ---
- General Info Date of Service: 08/06/18 Subjective Update: Freeman still complaints of abdominal pain the left flank and left upper quadrant. There is a cough. However,there is no fever or urinary symptoms.No constipation or diarrhea or vomiting. I appreciate Dr. Negron consultation. Functional Status: Reports: Pain Controlled, Tolerating Diet - Review of Systems General: Reports: No Symptoms HEENT: Reports: No Symptoms Pulmonary: Reports: No Symptoms Cardiovascular: Reports: No Symptoms Gastrointestinal: Reports: Abdominal Pain Genitourinary: Reports: No Symptoms Musculoskeletal: Reports: No Symptoms Skin: Reports: No Symptoms Neurological: Reports: No Symptoms - Patient Data Vitals - Most Recent: Last Vital Signs Temp 98.1 F 08/06/18 03:00 Pulse 72 08/06/18 08:32 Resp 19 08/06/18 03:00 BP 107/57 L 08/06/18 08:35 Pulse Ox 90 L 08/06/18 06:59 Weight - Most Recent: 76.657 kg I&O - Last 24 Hours: Intake & Output 08/05/18 08/06/18 08/06/18 22:59 06:59 14:59 Intake Total 500 50 Balance 500 50 Lab Results Last 24 Hours: Laboratory Results - last 24 hr 08/06/18 08/06/18 08/06/18 Range/Units 06:55 06:55 06:55 WBC 13.0 H (4.5-12.0) X10-3/uL RBC 4.92 (4.30-5.75) x10(6)uL Hgb 14.8 (11.5-15.5) g/dL Hct 44.0 (30.0-51.3) % MCV 89.4 (80-96) fL MCH 30.1 (27.7-33.6) pg MCHC 33.7 (32.2-35.4) g/dL RDW 14.3 (11.5-15.5) % Plt Count 142 (125-369) X10(3)uL MPV 8.2 (7.4-10.4) fL Neut % (Auto) 72.1 (46-82) % Lymph % (Auto) 21.9 (13-37) % [place] % (Auto) 4.4 (4-12) % Eos % (Auto) 1 (1.0-5.0) % Baso % (Auto) 0 (0-2) % Neut # (Auto) 9.2 H (1.6-8.3) # Lymph # (Auto) 2.9 (0.6-5.0) # [place] # (Auto) 0.6 (0.0-1.3) # Eos # (Auto) 0.2 (0.0-0.8) # Baso # (Auto) 0.1 (0.0-0.2) # Sodium 143 (135-145) mmol/L Potassium 3.7 (3.5-5.3) mmol/L Chloride 108 (100-110) mmol/L Carbon Dioxide 27 (21-32) mmol/L BUN 36 H D (7-18) mg/dL Creatinine 1.4 H (0.70-1.30) mg/dL Est Cr Clr Drug Dosing 34.10 mL/min Estimated GFR (MDRD) 48 L (>60) BUN/Creatinine Ratio 25.7 H (9-20) Glucose 132 H (80-116) mg/dL Calcium 8.3 L (8.6-10.2) mg/dL Total Bilirubin 1.0 (0.1-1.3) mg/dL AST 19 D (5-25) IU/L ALT 19 D (12-36) U/L Alkaline Phosphatase 45 L (56-112) IU/L C-Reactive Protein 24.7 H* (0.5-0.9) mg/dL Total Protein 5.5 L (6.0-8.0) g/dL Albumin 2.2 L (3.2-4.6) g/dL Globulin 3.3 g/dL Albumin/Globulin Ratio 0.7 Andrea Results Last 24 Hours: Microbiology 08/04/18 22:18 Urine Culture - Preliminary Urine, Catheterized Alpha Strep, Not Pneumococcus Med Orders - Current: Current Medications Acetaminophen (Tylenol) 650 mg PO Q6H PRN PRN Reason: Fever Last Admin: 08/06/18 00:17 Dose: 650 mg Amlodipine Besylate (Norvasc) 5 mg PO DAILY [facility] Last Admin: 08/06/18 08:35 Dose: 5 mg Artificial Tears (Refresh Liquigel 1%) 0 ml EYEBOTH TID [facility] Last Admin: 08/06/18 08:35 Dose: 1 drop Aspirin (Aspirin) 81 mg PO DAILY [facility] Last Admin: 08/06/18 08:32 Dose: 81 mg Clopidogrel Bisulfate (Plavix) 75 mg PO DAILY [facility] Last Admin: 08/06/18 08:35 Dose: 75 mg Piperacillin Sod/Tazobactam (Sod 3.375 gm/ Sodium Chloride) 50 mls @ 100 mls/ hr IV Q6H [facility] Last Admin: 08/06/18 06:22 Dose: 100 mls/hr Levofloxacin/Dextrose 500 mg/ (Premix) 100 mls @ 100 mls/hr IV Q24H [facility] Isosorbide Mononitrate (Imdur) 15 mg PO WITHDINNER [facility] Last Admin: 08/05/18 19:07 Dose: 15 mg Ketorolac Tromethamine (Toradol) 15 mg IVPUSH Q6H PRN PRN Reason: Pain Stop: 08/10/18 09:55 Last Admin: 08/06/18 01:54 Dose: 15 mg Memantine (Namenda) 10 mg PO BID [facility] Last Admin: 08/06/18 08:32 Dose: 10 mg Metoprolol Succinate (Toprol Xl) 50 mg PO DAILY [facility] Last Admin: 08/06/18 08:32 Dose: 50 mg Ondansetron HCl (Zofran) 4 mg IVPUSH Q6H PRN PRN Reason: Nausea/Vomiting Sitagliptin Phosphate (Januvia) 50 mg PO DAILY [facility] Last Admin: 08/06/18 08:32 Dose: 50 mg Sodium Chloride (Saline Flush) 10 ml FLUSH ASDIRECTED PRN PRN Reason: Keep Vein Open Last Admin: 08/06/18 06:22 Dose: 10 ml Discontinued Medications Furosemide (Lasix) 20 mg IVPUSH NOW ONE Stop: 08/05/18 17:14 Last Admin: 08/05/18 17:34 Dose: 20 mg Hydromorphone HCl (Dilaudid) 0.5 mg IVPUSH ONETIME ONE Stop: 08/04/18 22:16 Last Admin: 08/04/18 23:21 Dose: 0.5 mg Hydromorphone HCl (Dilaudid) 0.5 mg IVPUSH Q6H PRN PRN Reason: Pain Last Admin: 08/05/18 06:36 Dose: 0.5 mg Sodium Chloride (Normal Saline) 500 mls @ 500 mls/hr IV .BOLUS ONE Stop: 08/04/18 23:14 Last Admin: 08/04/18 23:20 Dose: 500 mls/hr Piperacillin Sod/Tazobactam (Sod 3.375 gm/ Sodium Chloride) 50 mls @ 100 mls/ hr IV .ONCE ONE Stop: 08/04/18 23:51 Last Admin: 08/04/18 23:27 Dose: 100 mls/hr Sodium Chloride (Normal Saline) 1,000 mls @ 100 mls/hr IV ASDIRECTED STELLA Last Admin: 08/05/18 01:13 Dose: 100 mls/hr Iopamidol (Isovue-370 (76%)) 75 ml IV ONETIME ONE Stop: 08/04/18 23:00 Last Admin: 08/04/18 23:15 Dose: 75 ml Metoprolol Succinate (Toprol Xl) 50 mg PO DAILY [facility] Ondansetron HCl (Zofran) 4 mg IVPUSH ONETIME ONE Stop: 08/04/18 22:17 Last Admin: 08/04/18 23:21 Dose: 4 mg - Exam General: Alert, Oriented Neck: Supple Lungs: Crackles, Rales Cardiovascular: Regular Rate GI/Abdominal Exam: Normal Bowel Sounds, Tender. No: Non-Tender, No Mass Back Exam: Normal Inspection - Problem List & Annotations (1) Abdominal pain SNOMED Code(s): 58374769 Code(s): R10.9 - UNSPECIFIED ABDOMINAL PAIN Status: Acute Current Visit: Yes Qualifiers: Abdominal location: left lower quadrant Qualified Code(s): R10.32 - Left lower quadrant pain (2) CAP (community acquired pneumonia) SNOMED Code(s): 424992290 Code(s): J18.9 - PNEUMONIA, UNSPECIFIED ORGANISM Status: Acute Current Visit: Yes Qualifiers: Laterality: left (3) Hard of hearing SNOMED Code(s): 34427493 Code(s): H91.90 - UNSPECIFIED HEARING LOSS, UNSPECIFIED EAR Status: Chronic Current Visit: Yes Qualifiers: Hearing loss type: unspecified (4) UTI (urinary tract infection) SNOMED Code(s): 45795613 Code(s): N39.0 - URINARY TRACT INFECTION, SITE NOT SPECIFIED Status: Acute Current Visit: Yes Qualifiers: Urinary tract infection type: acute pyelonephritis Qualified Code(s): N10 - Acute pyelonephritis (5) Diabetes mellitus SNOMED Code(s): 77189313 Code(s): E11.9 - TYPE 2 DIABETES MELLITUS WITHOUT COMPLICATIONS Status: Acute Current Visit: No - Problem List Review Problem List Initiated/Reviewed/Updated: Yes - My Orders Last 24 Hours: My Active Orders 08/05/18 09:54 Notify Provider Consults [RC] ASDIRECTED Consult to Physician [CONS] Urgent 08/05/18 09:55 Ketorolac [Toradol] 15 mg IVPUSH Q6H PRN 08/06/18 08:45 Levofloxacin/Dextrose 5%-Water [Levaquin in D5W 500 MG/100 ML] 500 mg Premix Bag 1 bag IV Q24H metroNIDAZOLE/Normal Saline [Flagyl 500 MG in NS 100 ML] 500 mg Premix Bag 1 bag IV Q8H 08/07/18 05:11 CBC WITH AUTO DIFF [HEME] AM COMPREHENSIVE METABOLIC PN,CMP [CHEM] AM - Plan Plan:: His urine is growing alpha strep. I will discontinue Zosyn in favor of Levaquin and Flagyl, also include treatment for diverticulitis.Add PPI. Continue full liquid diet Repeat Labs.
[2018-08-06] MEDS: Multivitamins with Iron/Calcium/Folic Acid/Minerals Tab PO SCH (09:44)
[2018-08-06] MEDS: Pantoprazole 40 MG Tab.CR PO SCH (09:44)
[2018-08-06] MEDS: metroNIDAZOLE/Normal Saline 500 MG in Premix Bag 1 BAG IV SCH ×2 (09:44→17:08)
[2018-08-06] MEDS ORDERED: Levofloxacin/Dextrose 5%-Water 500 MG in Premix Bag 1 BAG IV ONE (10:00)
[2018-08-06] MEDS: Isosorbide Mononitrate 30 MG Tab.ER PO SCH (17:12)
[2018-08-07] MEDS: metroNIDAZOLE/Normal Saline 500 MG in Premix Bag 1 BAG IV SCH ×3 (00:55→17:16)
[2018-08-07] MEDS: Sodium Chloride 0.9% 10 ML Syringe FLUSH PRN ×5 (02:14→18:24)
[2018-08-07] MEDS: Pantoprazole 40 MG Tab.CR PO SCH (05:46)
[2018-08-07] MEDS: amLODIPine 5 MG Tab PO SCH (09:34)
[2018-08-07] MEDS: Carboxymethylcellulose Sodium 1% Ophth Gel 15 ML Bottle EYEBOTH SCH ×3 (09:34→20:38)
[2018-08-07] MEDS: Clopidogrel 75 MG Tab PO SCH (09:34)
[2018-08-07] MEDS: Aspirin 81 MG Tab.Chew PO SCH (09:34)
[2018-08-07] MEDS: Memantine 10 MG Tab PO SCH ×2 (09:34→20:38)
[2018-08-07] MEDS: Metoprolol Succinate 50 MG Tab.ER PO SCH (09:35)
[2018-08-07] MEDS: Multivitamins with Iron/Calcium/Folic Acid/Minerals Tab PO SCH (09:35)
--- NOTE | 2018-08-07 09:53 | PCM.PN ---
- General Info Date of Service: 08/07/18 Subjective Update: Patient continues to complain of abdominal pain in the left lower quadrant and this seems to have been unchanged since his admission. He does appear to be in no distress at all and only reports the pain when his abdomen is being palpated. He has otherwise not had any fevers, chills, nausea, vomiting, dysuria. He had a very large loose watery stool this morning around 3am. He does report feeling hungry today. Functional Status: Reports: Urinating - Review of Systems General: Reports: No Symptoms HEENT: Reports: No Symptoms Pulmonary: Reports: No Symptoms Cardiovascular: Reports: No Symptoms Gastrointestinal: Reports: Abdominal Pain Genitourinary: Reports: No Symptoms Musculoskeletal: Reports: No Symptoms Skin: Reports: No Symptoms Neurological: Reports: No Symptoms - Patient Data Vitals - Most Recent: Last Vital Signs Temp 98.5 F 08/07/18 03:59 Pulse 70 08/07/18 09:35 Resp 18 08/07/18 03:59 BP 120/51 L 08/07/18 09:35 Pulse Ox 90 L 08/07/18 06:00 Weight - Most Recent: 166 lb 1.6 oz I&O - Last 24 Hours: Intake & Output 08/06/18 08/07/18 08/07/18 22:59 06:59 14:59 Intake Total 300 150 Balance 300 150 Lab Results Last 24 Hours: Laboratory Results - last 24 hr 08/07/18 08/07/18 Range/Units 06:45 06:45 WBC 12.1 H (4.5-12.0) X10-3/uL RBC 4.83 (4.30-5.75) x10(6)uL Hgb 14.8 (11.5-15.5) g/dL Hct 43.2 (30.0-51.3) % MCV 89.5 (80-96) fL MCH 30.6 (27.7-33.6) pg MCHC 34.2 (32.2-35.4) g/dL RDW 14.1 (11.5-15.5) % Plt Count 149 (125-369) X10(3)uL MPV 8.4 (7.4-10.4) fL Neut % (Auto) 69.1 (46-82) % Lymph % (Auto) 23.1 (13-37) % Sumner % (Auto) 5.9 (4-12) % Eos % (Auto) 1 (1.0-5.0) % Baso % (Auto) 1 (0-2) % Neut # (Auto) 8.3 (1.6-8.3) # Lymph # (Auto) 2.8 (0.6-5.0) # Sumner # (Auto) 0.7 (0.0-1.3) # Eos # (Auto) 0.2 (0.0-0.8) # Baso # (Auto) 0.1 (0.0-0.2) # Sodium 140 (135-145) mmol/L Potassium 3.7 (3.5-5.3) mmol/L Chloride 107 (100-110) mmol/L Carbon Dioxide 24 (21-32) mmol/L BUN 34 H (7-18) mg/dL Creatinine 1.2 (0.70-1.30) mg/dL Est Cr Clr Drug Dosing 39.78 mL/min Estimated GFR (MDRD) 57 L (>60) BUN/Creatinine Ratio 28.3 H (9-20) Glucose 116 (80-116) mg/dL Calcium 8.3 L (8.6-10.2) mg/dL Total Bilirubin 0.7 (0.1-1.3) mg/dL AST 18 (5-25) IU/L ALT 18 (12-36) U/L Alkaline Phosphatase 49 L (56-112) IU/L Total Protein 5.8 L (6.0-8.0) g/dL Albumin 2.2 L (3.2-4.6) g/dL Globulin 3.6 g/dL Albumin/Globulin Ratio 0.6 Andrea Results Last 24 Hours: Microbiology 08/04/18 22:20 Aerobic Blood Culture - Preliminary Blood - Venous NO GROWTH AFTER 2 DAYS Anaerobic Blood Culture - Preliminary NO GROWTH AFTER 2 DAYS 08/04/18 22:25 Aerobic Blood Culture - Preliminary Blood - Venous - Lab Draw NO GROWTH AFTER 2 DAYS Anaerobic Blood Culture - Preliminary NO GROWTH AFTER 2 DAYS Med Orders - Current: Current Medications Acetaminophen (Tylenol) 650 mg PO Q6H PRN PRN Reason: Fever Last Admin: 08/06/18 00:17 Dose: 650 mg Amlodipine Besylate (Norvasc) 5 mg PO DAILY STELLA Last Admin: 08/07/18 09:34 Dose: 5 mg Artificial Tears (Refresh Liquigel 1%) 0 ml EYEBOTH TID COUNTS INCLUDE 234 BEDS AT THE [facility] Last Admin: 08/07/18 09:34 Dose: 1 drop Aspirin (Aspirin) 81 mg PO DAILY COUNTS INCLUDE 234 BEDS AT THE [facility] Last Admin: 08/07/18 09:34 Dose: 81 mg Clopidogrel Bisulfate (Plavix) 75 mg PO DAILY COUNTS INCLUDE 234 BEDS AT THE [facility] Last Admin: 08/07/18 09:34 Dose: 75 mg Metronidazole 500 mg/ Premix 100 mls @ 100 mls/hr IV Q8H COUNTS INCLUDE 234 BEDS AT THE [facility] Last Admin: 08/07/18 09:40 Dose: 100 mls/hr Levofloxacin/Dextrose 250 mg/ (Premix) 50 mls @ 50 mls/hr IV Q24H COUNTS INCLUDE 234 BEDS AT THE [facility] Isosorbide Mononitrate (Imdur) 15 mg PO WITHDINNER COUNTS INCLUDE 234 BEDS AT THE [facility] Last Admin: 08/06/18 17:12 Dose: 15 mg Ketorolac Tromethamine (Toradol) 15 mg IVPUSH Q6H PRN PRN Reason: Pain Stop: 08/10/18 09:55 Last Admin: 08/06/18 01:54 Dose: 15 mg Magnesium Hydroxide (Milk Of Magnesia) 30 ml PO DAILY PRN PRN Reason: Constipation Memantine (Namenda) 10 mg PO BID COUNTS INCLUDE 234 BEDS AT THE [facility] Last Admin: 08/07/18 09:34 Dose: 10 mg Metoprolol Succinate (Toprol Xl) 50 mg PO DAILY COUNTS INCLUDE 234 BEDS AT THE [facility] Last Admin: 08/07/18 09:35 Dose: 50 mg Multivitamins/Minerals (Thera M Plus) 1 tab PO DAILY COUNTS INCLUDE 234 BEDS AT THE [facility] Last Admin: 08/07/18 09:35 Dose: 1 tab Pantoprazole Sodium (Protonix) 40 mg PO 0600 COUNTS INCLUDE 234 BEDS AT THE [facility] Last Admin: 08/07/18 05:46 Dose: 40 mg Sitagliptin Phosphate (Januvia) 50 mg PO DAILY COUNTS INCLUDE 234 BEDS AT THE [facility] Last Admin: 08/07/18 09:34 Dose: 50 mg Sodium Chloride (Saline Flush) 10 ml FLUSH ASDIRECTED PRN PRN Reason: Keep Vein Open Last Admin: 08/07/18 09:48 Dose: 10 ml Discontinued Medications Furosemide (Lasix) 20 mg IVPUSH NOW ONE Stop: 08/05/18 17:14 Last Admin: 08/05/18 17:34 Dose: 20 mg Hydromorphone HCl (Dilaudid) 0.5 mg IVPUSH ONETIME ONE Stop: 08/04/18 22:16 Last Admin: 08/04/18 23:21 Dose: 0.5 mg Hydromorphone HCl (Dilaudid) 0.5 mg IVPUSH Q6H PRN PRN Reason: Pain Last Admin: 08/05/18 06:36 Dose: 0.5 mg Sodium Chloride (Normal Saline) 500 mls @ 500 mls/hr IV .BOLUS ONE Stop: 08/04/18 23:14 Last Admin: 08/04/18 23:20 Dose: 500 mls/hr Piperacillin Sod/Tazobactam (Sod 3.375 gm/ Sodium Chloride) 50 mls @ 100 mls/ hr IV .ONCE ONE Stop: 08/04/18 23:51 Last Admin: 08/04/18 23:27 Dose: 100 mls/hr Sodium Chloride (Normal Saline) 1,000 mls @ 100 mls/hr IV ASDIRECTED COUNTS INCLUDE 234 BEDS AT THE [facility] Last Admin: 08/05/18 01:13 Dose: 100 mls/hr Piperacillin Sod/Tazobactam (Sod 3.375 gm/ Sodium Chloride) 50 mls @ 100 mls/ hr IV Q6H COUNTS INCLUDE 234 BEDS AT THE [facility] Last Admin: 08/06/18 06:22 Dose: 100 mls/hr Levofloxacin/Dextrose 500 mg/ (Premix) 100 mls @ 100 mls/hr IV ONETIME ONE Stop: 08/06/18 10:59 Last Admin: 08/06/18 11:09 Dose: 100 mls/hr Iopamidol (Isovue-370 (76%)) 75 ml IV ONETIME ONE Stop: 08/04/18 23:00 Last Admin: 08/04/18 23:15 Dose: 75 ml Metoprolol Succinate (Toprol Xl) 50 mg PO DAILY COUNTS INCLUDE 234 BEDS AT THE [facility] Ondansetron HCl (Zofran) 4 mg IVPUSH ONETIME ONE Stop: 08/04/18 22:17 Last Admin: 08/04/18 23:21 Dose: 4 mg Ondansetron HCl (Zofran) 4 mg IVPUSH Q6H PRN PRN Reason: Nausea/Vomiting - Exam Quality Assessment: Supplemental Oxygen General: Alert, No Acute Distress HEENT: Pupils Equal, Mucous Membr. Moist/[place] Lungs: Clear to Auscultation, Normal Respiratory Effort Cardiovascular: Regular Rate, Regular Rhythm, No Murmurs GI/Abdominal Exam: Normal Bowel Sounds, No Organomegaly, Guarding, Tender Extremities: Normal Inspection, Normal Range of Motion, No Pedal Edema Skin: Warm - Problem List & Annotations (1) Abdominal pain SNOMED Code(s): 20929414 Code(s): R10.9 - UNSPECIFIED ABDOMINAL PAIN Status: Acute Current Visit: Yes Qualifiers: Abdominal location: left lower quadrant Qualified Code(s): R10.32 - Left lower quadrant pain (2) UTI (urinary tract infection) SNOMED Code(s): 17312436 Code(s): N39.0 - URINARY TRACT INFECTION, SITE NOT SPECIFIED Status: Acute Current Visit: Yes Qualifiers: Urinary tract infection type: acute pyelonephritis Qualified Code(s): N10 - Acute pyelonephritis (3) Acute diverticulitis SNOMED Code(s): 672628617 Code(s): K57.92 - DVTRCLI OF INTEST, PART UNSP, W/O PERF OR ABSCESS W/O BLEED Status: Acute Current Visit: Yes (4) Hard of hearing SNOMED Code(s): 37884567 Code(s): H91.90 - UNSPECIFIED HEARING LOSS, UNSPECIFIED EAR Status: Chronic Current Visit: Yes Qualifiers: Hearing loss type: unspecified (5) Coronary arteriosclerosis, CAD SNOMED Code(s): 22638070 Code(s): I25.10 - ATHSCL HEART DISEASE OF [place] CORONARY ARTERY W/O ANG PCTRS Status: Acute Current Visit: No (6) Diabetes mellitus SNOMED Code(s): 56176994 Code(s): E11.9 - TYPE 2 DIABETES MELLITUS WITHOUT COMPLICATIONS Status: Acute Current Visit: No - Problem List Review Problem List Initiated/Reviewed/Updated: Yes - My Orders Last 24 Hours: My Active Orders 08/07/18 09:17 UA W/MICROSCOPIC [URIN] Routine - Plan Plan:: Patient remains clinically and hemodynamically stable. His leukocytosis is also improving and he has been afebrile since admission. Continue Levaquin and Metronidazole IV. We will repeat the urinalysis today. Dr. Negron is also following the patient and we appreciate recommendations on advancing his diet. No change to pain medication regimen. Repeat labs tomorrow morning.
[2018-08-07] MEDS ORDERED: Levofloxacin/Dextrose 5%-Water 250 MG in Premix Bag 1 BAG IV SCH (10:00)
[2018-08-07] MEDS: Isosorbide Mononitrate 30 MG Tab.ER PO SCH (17:24)
[2018-08-08] MEDS: metroNIDAZOLE/Normal Saline 500 MG in Premix Bag 1 BAG IV SCH ×3 (01:00→18:45)
[2018-08-08] MEDS: Sodium Chloride 0.9% 10 ML Syringe FLUSH PRN ×3 (01:02→09:25)
[2018-08-08] MEDS: Pantoprazole 40 MG Tab.CR PO SCH (05:35)
[2018-08-08] MEDS: Ketorolac 30 MG/ML SDV IVPUSH PRN (08:03)
[2018-08-08] MEDS: amLODIPine 5 MG Tab PO SCH (08:05)
[2018-08-08] MEDS: Memantine 10 MG Tab PO SCH ×2 (08:05→22:01)
[2018-08-08] MEDS: Multivitamins with Iron/Calcium/Folic Acid/Minerals Tab PO SCH (08:06)
[2018-08-08] MEDS: Metoprolol Succinate 50 MG Tab.ER PO SCH (08:06)
[2018-08-08] MEDS: Clopidogrel 75 MG Tab PO SCH (08:06)
[2018-08-08] MEDS: Carboxymethylcellulose Sodium 1% Ophth Gel 15 ML Bottle EYEBOTH SCH ×2 (08:06→14:52)
[2018-08-08] MEDS: Aspirin 81 MG Tab.Chew PO SCH (08:07)
[2018-08-08] MEDS: Amoxicillin 500 MG Cap PO SCH ×2 (09:26→18:12)
--- NOTE | 2018-08-08 09:58 | PN ---
DATE SEEN: 08/08/2018 HISTORY: Mr. Rosario is an 88-year-old resident of [facility] with a history of hypertension, type 2 diabetes, and mild dementia. He was admitted from the emergency room because of new onset of abdominal pain. He described this as left lower quadrant pain and was quite clinically suspicious for diverticulitis. CT scan of the abdomen and pelvis was relatively unremarkable. He was admitted and has been treated with IV antibiotics for diverticulitis. Also found was a significant urinary tract infection. Freeman is examined this morning in his bed. He is a good historian. He is extremely hard of hearing. He states that his abdominal pain is completely unchanged, remains as indicated; the left lower quadrant radiating across the suprapubic area. He has been eating and having bowel movements without change in the abdominal pain. PHYSICAL EXAMINATION: VITAL SIGNS: Blood pressure 119/56, pulse 66 and regular, respirations normal, temp 98.2, and weight 170 pounds. SKIN: No sign of trauma or rash. Mouth was dry. LUNGS: Clear with good air movement to the bases. HEART: Regular without murmur or gallop. ABDOMEN: Normal bowel sounds. No distention. Soft. He has tenderness to very light palpation in the left upper quadrant. This extends along the left abdomen to the left lower quadrant and suprapubic area. Minimal right-sided abdominal tenderness. No significant rebound tenderness. EXTREMITIES: No edema. LABORATORY DATA: On admission, white count 17,100, this was down to 12,000 yesterday. Creatinine 1.2. CRP 24. Urinalysis now, initially greater than 100 white cells, now down to 5-10 white cells with a urine culture showing alpha strep, non-pneumococcal. ASSESSMENT: 1. Persistent abdominal pain, suspicious for intraabdominal infection diagnosis as of yet not clear. 2. Urinary tract infection. 3. Chronic essential hypertension. 4. Mild cognitive deficits. 5. Type 2 diabetes. PLAN: We will repeat his CT of the abdomen and pelvis with and without contrast. I have switched him from IV to oral antibiotics today to amoxicillin. We will continue normal activity and diet and follow up pending results of CT studies. We will continue to provide with palliative care measures for his underlying abdominal discomfort. Cognitive deficits and diabetes. Anticipate return to [facility] when stable. /[id number] YUNG/EDILMA
[2018-08-08] MEDS ORDERED: Iopamidol 755 Mg/ML 100 ML Bottle IV ONE (14:53)
[2018-08-08] MEDS: Lactated Ringers 1,000 ML IV SCH (18:32)
[2018-08-08] MEDS: Isosorbide Mononitrate 30 MG Tab.ER PO SCH (18:37)
[2018-08-09] MEDS: Amoxicillin 500 MG Cap PO SCH (00:52)
[2018-08-09] MEDS: Carboxymethylcellulose Sodium 1% Ophth Gel 15 ML Bottle EYEBOTH SCH ×4 (00:53→20:48)
[2018-08-09] MEDS ORDERED: Morphine 2 MG/ML Syringe IVPUSH ONE (01:34)
[2018-08-09] MEDS: metroNIDAZOLE/Normal Saline 500 MG in Premix Bag 1 BAG IV SCH ×3 (02:48→17:58)
[2018-08-09] MEDS: Lactated Ringers 1,000 ML IV SCH ×2 (07:10→19:24)
--- NOTE | 2018-08-09 08:08 | PN ---
DATE SEEN: 08/09/2018 HISTORY: Mr. Rosario is an 88-year-old man who was admitted with abdominal pain and suspected diverticulitis. He was on IV antibiotics and did not seem to improve. A repeat CT scan done yesterday showed a diverticular abscess tracking subcu in the left abdomen. He was placed n.p.o. and IV antibiotics resumed. He states he feels okay this morning except for abdominal pain that is unchanged. He has remained afebrile and he is anxious for his cup of coffee this morning. PHYSICAL EXAMINATION: GENERAL: He is alert and a good historian. He is hard of hearing. VITAL SIGNS: Blood pressure 118/58, pulse 72, temperature 98, respirations 20. SKIN: Clear with no sign of superficial infection. HEART: Regular without murmur or gallop. ABDOMEN: Has normoactive bowel sounds. He has exquisite tenderness to palpation in the left abdomen extending from just at the lower rib margin down toward the left lower quadrant. EXTREMITIES: Showed no edema. ASSESSMENT: Diverticular abscess. PLAN: Surgical consultation regarding drainage. I have kept him n.p.o. and follow up after that. /[id number] YUNG/EDILMA
[2018-08-09] MEDS: Multivitamins with Iron/Calcium/Folic Acid/Minerals Tab PO SCH (08:20)
[2018-08-09] MEDS: Metoprolol Succinate 50 MG Tab.ER PO SCH (08:20)
[2018-08-09] MEDS: Memantine 10 MG Tab PO SCH ×2 (08:20→20:48)
[2018-08-09] MEDS: amLODIPine 5 MG Tab PO SCH (08:20)
[2018-08-09] MEDS: Aspirin 81 MG Tab.Chew PO SCH (08:20)
[2018-08-09] MEDS: Clopidogrel 75 MG Tab PO SCH (08:21)
--- NOTE | 2018-08-09 09:50 | CONS ---
DATE OF CONSULTATION: 08/09/2018 REASON FOR CONSULTATION: Apparent micro perforation of diverticulitis via descending colon. HISTORY OF PRESENT ILLNESS: This is an 88-year-old white male who was admitted several days ago from [facility], had a complaint of some left- sided abdominal pain. CT scan revealed what appeared to be some possible diverticulitis as well as cystitis. His pain has persisted in the left side and apparently yesterday evening a CT scan was obtained, which demonstrated possible small focus of air in the mid descending colon on the left side. No overt abscess was noted. His antibiotic coverage was broadened and today he was noted to have a decrease in his white count, it is now down into the normal range. His vitals have been stable and he has been afebrile. His evaluation is exacerbated by the fact that he has a history of some mild dementia as well. PAST MEDICAL HISTORY: Significant for hearing loss, cataract, macular degeneration, coronary artery disease, hypertension, hypercholesterolemia, COPD, diverticulosis, arthritis, Alzheimer's, and type 2 diabetes. PAST SURGICAL HISTORY: Significant for appendectomy, cholecystectomy, coronary artery bypass surgery, and cataract surgery. SOCIAL HISTORY: He is a former smoker. MEDICATIONS: Reviewed in his chart at the time of admission. REVIEW OF SYSTEMS: Essentially noncontributory except for some left-sided abdominal pain. PHYSICAL EXAMINATION: GENERAL: As of this morning, this is a well-developed, well-nourished white male, appearing in no acute distress, resting in a recliner watching TV. LUNGS: Clear to auscultation. HEART: Regular rate and rhythm. ABDOMEN: Revealed some tenderness on the left side. He has normoactive bowel sounds. LABORATORY DATA: White count was noted to be 8.4 with an H and H of 14.6 and 44.1 and a platelet count of 180. Electrolytes were essentially unremarkable except for a BUN of 31, glucose 122. CT scan report was reviewed. He does have some evidence of some very mild diverticulitis and on one cut on one series, there is what appears to be a small amount of air outside of the colon suggestive of small perforation. No overt abscess was noted. ASSESSMENT: Diverticulitis with probable microperforation. PLAN: At this point, I do not see an abscess that would be amenable to any type of intervention as his antibiotic coverage has just been broadened yesterday to include most extensive coverage. I would recommend that he continue the broader antibiotic coverage which we are doing. With his white count decreasing, this should be able to be treated conservatively. /[id number] /MODL
[2018-08-09] MEDS: Sodium Chloride 0.9% 10 ML Syringe FLUSH PRN ×2 (10:41→12:04)
[2018-08-09] MEDS: cefOXitin 1 GM Vial IV SCH ×2 (12:01→20:48)
[2018-08-09] MEDS ORDERED: Morphine 10 MG/ML Syringe SUBCUT PRN (14:12)
[2018-08-09] MEDS: Morphine 10 MG/ML SDV SUBCUT PRN (16:07)
[2018-08-09] MEDS: Isosorbide Mononitrate 30 MG Tab.ER PO SCH (17:54)
[2018-08-10] MEDS ORDERED: metroNIDAZOLE/Normal Saline 100 ML ONE (00:33)
[2018-08-10] MEDS: metroNIDAZOLE/Normal Saline 500 MG in Premix Bag 1 BAG IV SCH ×2 (01:11→10:52)
[2018-08-10] MEDS: Morphine 10 MG/ML SDV SUBCUT PRN ×2 (01:36→23:58)
[2018-08-10] MEDS: Sodium Chloride 0.9% 10 ML Syringe FLUSH PRN ×2 (01:40→18:03)
[2018-08-10] MEDS: cefOXitin 1 GM Vial IV SCH (04:02)
[2018-08-10] MEDS: Lactated Ringers 1,000 ML IV SCH ×2 (07:49→20:11)
[2018-08-10] MEDS: traMADol 50 MG Tab PO PRN ×2 (08:02→15:43)
[2018-08-10] MEDS: Aspirin 81 MG Tab.Chew PO SCH (08:04)
[2018-08-10] MEDS: Metoprolol Succinate 50 MG Tab.ER PO SCH (08:05)
[2018-08-10] MEDS: amLODIPine 5 MG Tab PO SCH (08:05)
[2018-08-10] MEDS: Carboxymethylcellulose Sodium 1% Ophth Gel 15 ML Bottle EYEBOTH SCH ×3 (08:05→20:50)
[2018-08-10] MEDS: Memantine 10 MG Tab PO SCH ×2 (08:06→20:50)
[2018-08-10] MEDS: Multivitamins with Iron/Calcium/Folic Acid/Minerals Tab PO SCH (08:06)
[2018-08-10] MEDS: Clopidogrel 75 MG Tab PO SCH (08:07)
--- NOTE | 2018-08-10 11:14 | PCM.SURGPN ---
- General Info Date of Service: 08/10/18 Functional Status: Reports: Pain Controlled, Tolerating Diet, Ambulating, Urinating. Denies: New Symptoms - Review of Systems Gastrointestinal: Reports: Abdominal Pain - Patient Data Vitals - Most Recent: Last Vital Signs Temp 98.6 F 08/10/18 07:50 Pulse 66 08/10/18 08:05 Resp 20 08/10/18 07:50 BP 121/59 L 08/10/18 08:05 Pulse Ox 83 L 08/10/18 07:50 Weight - Most Recent: 78.471 kg I&O - Last 24 Hours: Intake & Output 08/09/18 08/10/18 08/10/18 22:59 06:59 14:59 Intake Total 850 200 Output Total 250 Balance 850 -50 Lab Results Last 24 Hrs: Laboratory Results - last 24 hr 08/09/18 08/10/18 Range/Units 19:27 09:03 POC Glucose 165 H 115 (80-116) mg/dL Andrea Results Last 24 Hrs: Microbiology 08/09/18 08:55 Urine Culture - Preliminary Urine, Clean Catch No Growth 08/04/18 22:20 Aerobic Blood Culture - Final Blood - Venous NO GROWTH AFTER 5 DAYS Anaerobic Blood Culture - Final NO GROWTH AFTER 5 DAYS 08/07/18 23:55 Urine Culture - Final Urine, Voided NO GROWTH AFTER 2 DAYS Med Orders - Current: Current Medications Acetaminophen (Tylenol) 650 mg PO Q6H PRN PRN Reason: Fever Last Admin: 08/06/18 00:17 Dose: 650 mg Amlodipine Besylate (Norvasc) 5 mg PO DAILY [facility] Last Admin: 08/10/18 08:05 Dose: 5 mg Artificial Tears (Refresh Liquigel 1%) 0 ml EYEBOTH TID [facility] Last Admin: 08/10/18 08:05 Dose: 1 drop Aspirin (Aspirin) 81 mg PO DAILY [facility] Last Admin: 08/10/18 08:04 Dose: 81 mg Clopidogrel Bisulfate (Plavix) 75 mg PO DAILY [facility] Last Admin: 08/10/18 08:07 Dose: 75 mg Metronidazole 500 mg/ Premix 100 mls @ 100 mls/hr IV Q8H [facility] Last Admin: 08/10/18 10:52 Dose: 100 mls/hr Lactated Ringer's (Ringers, Lactated) 1,000 mls @ 100 mls/hr IV ASDIRECTED [facility] Last Admin: 08/10/18 07:49 Dose: 100 mls/hr Cefoxitin Sodium (Mefoxin In Dextrose,Iso-Osm 1 Gm/50 Ml) 50 mls @ 100 mls/hr IV Q8H [facility] Isosorbide Mononitrate (Imdur) 15 mg PO WITHDINNER [facility] Last Admin: 08/09/18 17:54 Dose: 15 mg Magnesium Hydroxide (Milk Of Magnesia) 30 ml PO DAILY PRN PRN Reason: Constipation Memantine (Namenda) 10 mg PO BID [facility] Last Admin: 08/10/18 08:06 Dose: 10 mg Metoprolol Succinate (Toprol Xl) 50 mg PO DAILY [facility] Last Admin: 08/10/18 08:05 Dose: 50 mg Morphine Sulfate (Morphine) 6 mg SUBCUT Q4H PRN PRN Reason: Pain (moderate 4-6) Last Admin: 08/10/18 01:36 Dose: 6 mg Multivitamins/Minerals (Thera M Plus) 1 tab PO DAILY [facility] Last Admin: 08/10/18 08:06 Dose: 1 tab Sitagliptin Phosphate (Januvia) 50 mg PO DAILY [facility] Last Admin: 08/10/18 08:06 Dose: 50 mg Sodium Chloride (Saline Flush) 10 ml FLUSH ASDIRECTED PRN PRN Reason: Keep Vein Open Last Admin: 08/10/18 01:40 Dose: 10 ml Tramadol HCl (Ultram) 50 mg PO Q4H PRN PRN Reason: Pain (mild 1-3) Last Admin: 08/10/18 08:02 Dose: 50 mg Discontinued Medications Amoxicillin (Amoxil) 500 mg PO Q8H [facility] Last Admin: 08/09/18 00:52 Dose: Not Given Cefoxitin Sodium (Mefoxin) 1 gm IV Q8H [facility] Last Admin: 08/10/18 04:02 Dose: 1 gm Furosemide (Lasix) 20 mg IVPUSH NOW ONE Stop: 08/05/18 17:14 Last Admin: 08/05/18 17:34 Dose: 20 mg Hydromorphone HCl (Dilaudid) 0.5 mg IVPUSH ONETIME ONE Stop: 08/04/18 22:16 Last Admin: 08/04/18 23:21 Dose: 0.5 mg Hydromorphone HCl (Dilaudid) 0.5 mg IVPUSH Q6H PRN PRN Reason: Pain Last Admin: 08/05/18 06:36 Dose: 0.5 mg Sodium Chloride (Normal Saline) 500 mls @ 500 mls/hr IV .BOLUS ONE Stop: 08/04/18 23:14 Last Admin: 08/04/18 23:20 Dose: 500 mls/hr Piperacillin Sod/Tazobactam (Sod 3.375 gm/ Sodium Chloride) 50 mls @ 100 mls/ hr IV .ONCE ONE Stop: 08/04/18 23:51 Last Admin: 08/04/18 23:27 Dose: 100 mls/hr Sodium Chloride (Normal Saline) 1,000 mls @ 100 mls/hr IV ASDIRECTED [facility] Last Admin: 08/05/18 01:13 Dose: 100 mls/hr Piperacillin Sod/Tazobactam (Sod 3.375 gm/ Sodium Chloride) 50 mls @ 100 mls/ hr IV Q6H [facility] Last Admin: 08/06/18 06:22 Dose: 100 mls/hr Levofloxacin/Dextrose 500 mg/ (Premix) 100 mls @ 100 mls/hr IV ONETIME ONE Stop: 08/06/18 10:59 Last Admin: 08/06/18 11:09 Dose: 100 mls/hr Metronidazole 500 mg/ Premix 100 mls @ 100 mls/hr IV Q8H [facility] Last Admin: 08/08/18 08:14 Dose: 100 mls/hr Levofloxacin/Dextrose 250 mg/ (Premix) 50 mls @ 50 mls/hr IV Q24H [facility] Last Admin: 08/07/18 11:08 Dose: 50 mls/hr Cefoxitin Sodium 1 gm/ Sodium (Chloride) 50 mls @ 100 mls/hr IVPUSH Q8H [facility] Last Admin: 08/09/18 12:16 Dose: Not Given Metronidazole (Flagyl 500 Mg In Ns 100 Ml) Confirm Administered Dose 100 mls @ as directed .ROUTE .STK-MED ONE Stop: 08/10/18 00:34 Last Admin: 08/10/18 01:12 Dose: Not Given Cefoxitin Sodium (Mefoxin In Dextrose,Iso-Osm 1 Gm/50 Ml) Confirm Administered Dose 50 mls @ as directed .ROUTE .STK-MED ONE Stop: 08/10/18 03:55 Last Admin: 08/10/18 04:21 Dose: Not Given Iopamidol (Isovue-370 (76%)) 75 ml IV ONETIME ONE Stop: 08/04/18 23:00 Last Admin: 08/04/18 23:15 Dose: 75 ml Iopamidol (Isovue-370 (76%)) 100 ml IV . DIRECTED ONE Stop: 08/08/18 14:54 Last Admin: 08/08/18 15:25 Dose: 100 ml Ketorolac Tromethamine (Toradol) 15 mg IVPUSH Q6H PRN PRN Reason: Pain Stop: 08/10/18 09:55 Last Admin: 08/08/18 08:03 Dose: 15 mg Metoprolol Succinate (Toprol Xl) 50 mg PO DAILY [facility] Morphine Sulfate (Morphine) 2 mg IVPUSH ONETIME ONE Stop: 08/09/18 01:35 Last Admin: 08/09/18 02:08 Dose: 2 mg Morphine Sulfate (Morphine) 6 mg SUBCUT Q4H PRN PRN Reason: Pain (moderate 4-6) Morphine Sulfate (Morphine Sulfate) 2 mg IVPUSH Q4H PRN PRN Reason: Pain (severe 7-10) Last Admin: 08/10/18 08:01 Dose: 2 mg Ondansetron HCl (Zofran) 4 mg IVPUSH ONETIME ONE Stop: 08/04/18 22:17 Last Admin: 08/04/18 23:21 Dose: 4 mg Ondansetron HCl (Zofran) 4 mg IVPUSH Q6H PRN PRN Reason: Nausea/Vomiting Pantoprazole Sodium (Protonix) 40 mg PO 0600 [facility] Last Admin: 08/08/18 05:35 Dose: 40 mg - Exam General: Alert, Cooperative, No Acute Distress Lungs: Clear to Auscultation, Normal Respiratory Effort Cardiovascular: Regular Rate, Regular Rhythm GI/Abdominal Exam: Normal Bowel Sounds, Tender (left side no change from yesterday ) - Problem List & Annotations (1) Diverticulitis of intestine with perforation SNOMED Code(s): 303931011, 108075103 Code(s): K57.80 - DVTRCLI OF INTEST, PART UNSP, W PERF AND ABSCESS W/O BLEED Status: Acute Current Visit: Yes Qualifiers: Diverticulitis site: large intestine Diverticulitis bleeding: without bleeding Qualified Code(s): K57.20 - Diverticulitis of large intestine with perforation and abscess without bleeding - Problem List Review Problem List Initiated/Reviewed/Updated: Yes - My Orders Last 24 Hours: Active Orders 24 hr Category Date Time Status Full Liquid Diet [DIET] Diet 08/09/18 Lunch Active Morphine Med 08/09/18 15:19 Active 6 mg SUBCUT Q4H PRN cefOXitin [Mefoxin in Dextrose,Iso-Osm 1 GM/50 ML] 50 Med 08/10/18 12:00 Active ml IV Q8H traMADol [Ultram] Med 08/09/18 14:12 Active 50 mg PO Q4H PRN Medication Orders Acetaminophen (Tylenol) 650 mg PO Q6H PRN PRN Reason: Fever Last Admin: 08/06/18 00:17 Dose: 650 mg Admin: 08/05/18 16:19 Dose: 650 mg Admin: 08/05/18 09:49 Dose: 650 mg Amlodipine Besylate (Norvasc) 5 mg PO DAILY [facility] Last Admin: 08/10/18 08:05 Dose: 5 mg Admin: 08/09/18 08:20 Dose: Admin: 08/08/18 08:05 Dose: 5 mg Admin: 08/07/18 09:34 Dose: 5 mg Admin: 08/06/18 08:35 Dose: 5 mg Admin: 08/05/18 09:51 Dose: 5 mg Artificial Tears (Refresh Liquigel 1%) 0 ml EYEBOTH TID [facility] Last Admin: 08/10/18 08:05 Dose: 1 drop Admin: 08/09/18 20:48 Dose: 1 drop Admin: 08/09/18 14:05 Dose: 1 drop Admin: 08/09/18 08:18 Dose: 1 drop Admin: 08/09/18 00:53 Dose: Not Given Admin: 08/08/18 14:52 Dose: 1 drop Admin: 08/08/18 08:06 Dose: 1 drop Admin: 08/07/18 20:38 Dose: 1 drop Admin: 08/07/18 13:51 Dose: 1 drop Admin: 08/07/18 09:34 Dose: 1 drop Admin: 08/06/18 20:36 Dose: 1 drop Admin: 08/06/18 14:24 Dose: 1 drop Admin: 08/06/18 08:35 Dose: 1 drop Admin: 08/05/18 21:42 Dose: 1 drop Admin: 08/05/18 13:59 Dose: 1 drop Admin: 08/05/18 09:52 Dose: 1 drop Aspirin (Aspirin) 81 mg PO DAILY [facility] Last Admin: 08/10/18 08:04 Dose: 81 mg Admin: 08/09/18 08:20 Dose: Admin: 08/08/18 08:07 Dose: 81 mg Admin: 08/07/18 09:34 Dose: 81 mg Admin: 08/06/18 08:32 Dose: 81 mg Admin: 08/05/18 09:50 Dose: 81 mg Clopidogrel Bisulfate (Plavix) 75 mg PO DAILY [facility] Last Admin: 08/10/18 08:07 Dose: 75 mg Admin: 08/09/18 08:21 Dose: Admin: 08/08/18 08:06 Dose: 75 mg Admin: 08/07/18 09:34 Dose: 75 mg Admin: 08/06/18 08:35 Dose: 75 mg Admin: 08/05/18 09:51 Dose: 75 mg Metronidazole 500 mg/ Premix 100 mls @ 100 mls/hr IV Q8H [facility] Last Admin: 08/10/18 10:52 Dose: 100 mls/hr Infusion: 08/10/18 02:11 Dose: 100 mls/hr Admin: 08/10/18 01:11 Dose: 100 mls/hr Infusion: 08/09/18 18:58 Dose: 100 mls/hr Admin: 08/09/18 17:58 Dose: 100 mls/hr Infusion: 08/09/18 11:56 Dose: 100 mls/hr Admin: 08/09/18 10:56 Dose: 100 mls/hr Infusion: 08/09/18 03:48 Dose: 100 mls/hr Admin: 08/09/18 02:48 Dose: 100 mls/hr Infusion: 08/08/18 19:45 Dose: 100 mls/hr Admin: 08/08/18 18:45 Dose: 100 mls/hr Lactated Ringer's (Ringers, Lactated) 1,000 mls @ 100 mls/hr IV ASDIRECTED [facility] Last Admin: 08/10/18 07:49 Dose: 100 mls/hr Infusion: 08/10/18 05:24 Dose: 100 mls/hr Admin: 08/09/18 19:24 Dose: 100 mls/hr Infusion: 08/09/18 17:10 Dose: 100 mls/hr Admin: 08/09/18 07:10 Dose: 100 mls/hr Infusion: 08/09/18 04:32 Dose: 100 mls/hr Admin: 08/08/18 18:32 Dose: 100 mls/hr Cefoxitin Sodium (Mefoxin In Dextrose,Iso-Osm 1 Gm/50 Ml) 50 mls @ 100 mls/hr IV Q8H [facility] Isosorbide Mononitrate (Imdur) 15 mg PO WITHDINNEDA [facility] Last Admin: 08/09/18 17:54 Dose: 15 mg Admin: 08/08/18 18:37 Dose: 15 mg Admin: 08/07/18 17:24 Dose: 15 mg Admin: 08/06/18 17:12 Dose: 15 mg Admin: 08/05/18 19:07 Dose: 15 mg Magnesium Hydroxide (Milk Of Magnesia) 30 ml PO DAILY PRN PRN Reason: Constipation Memantine (Namenda) 10 mg PO BID [facility] Last Admin: 08/10/18 08:06 Dose: 10 mg Admin: 08/09/18 20:48 Dose: 10 mg Admin: 08/09/18 08:20 Dose: Admin: 08/08/18 22:01 Dose: Admin: 08/08/18 08:05 Dose: 10 mg Admin: 08/07/18 20:38 Dose: 10 mg Admin: 08/07/18 09:34 Dose: 10 mg Admin: 08/06/18 20:36 Dose: 10 mg Admin: 08/06/18 08:32 Dose: 10 mg Admin: 08/05/18 21:42 Dose: 10 mg Admin: 08/05/18 09:51 Dose: 10 mg Metoprolol Succinate (Toprol Xl) 50 mg PO DAILY [facility] Last Admin: 08/10/18 08:05 Dose: 50 mg Admin: 08/09/18 08:20 Dose: Admin: 08/08/18 08:06 Dose: 50 mg Admin: 08/07/18 09:35 Dose: 50 mg Admin: 08/06/18 08:32 Dose: 50 mg Admin: 08/05/18 09:52 Dose: 50 mg Morphine Sulfate (Morphine) 6 mg SUBCUT Q4H PRN PRN Reason: Pain (moderate 4-6) Last Admin: 08/10/18 01:36 Dose: 6 mg Admin: 08/09/18 16:07 Dose: 6 mg Multivitamins/Minerals (Thera M Plus) 1 tab PO DAILY [facility] Last Admin: 08/10/18 08:06 Dose: 1 tab Admin: 08/09/18 08:20 Dose: Admin: 08/08/18 08:06 Dose: 1 tab Admin: 08/07/18 09:35 Dose: 1 tab Admin: 08/06/18 09:44 Dose: 1 tab Sitagliptin Phosphate (Januvia) 50 mg PO DAILY [facility] Last Admin: 08/10/18 08:06 Dose: 50 mg Admin: 08/09/18 08:20 Dose: Admin: 08/08/18 08:05 Dose: 50 mg Admin: 08/07/18 09:34 Dose: 50 mg Admin: 08/06/18 08:32 Dose: 50 mg Admin: 08/05/18 09:51 Dose: 50 mg Sodium Chloride (Saline Flush) 10 ml FLUSH ASDIRECTED PRN PRN Reason: Keep Vein Open Last Admin: 08/10/18 01:40 Dose: 10 ml Admin: 08/09/18 12:04 Dose: 10 ml Admin: 08/09/18 10:41 Dose: 10 ml Admin: 08/08/18 09:25 Dose: 10 ml Admin: 08/08/18 08:01 Dose: 10 ml Admin: 08/08/18 01:02 Dose: 10 ml Admin: 08/07/18 18:24 Dose: 10 ml Admin: 08/07/18 11:10 Dose: 10 ml Admin: 08/07/18 11:09 Dose: 10 ml Admin: 08/07/18 09:48 Dose: 10 ml Admin: 08/07/18 02:14 Dose: 10 ml Admin: 08/06/18 17:18 Dose: 10 ml Admin: 08/06/18 10:51 Dose: 10 ml Admin: 08/06/18 09:45 Dose: 10 ml Admin: 08/06/18 06:22 Dose: 10 ml Admin: 08/06/18 00:06 Dose: 10 ml Admin: 08/05/18 20:06 Dose: 10 ml Admin: 08/05/18 18:30 Dose: 10 ml Admin: 08/05/18 12:03 Dose: 10 ml Tramadol HCl (Ultram) 50 mg PO Q4H PRN PRN Reason: Pain (mild 1-3) Last Admin: 08/10/18 08:02 Dose: 50 mg - Assessment Assessment (Free Text/Narrative):: essentially no change in exam - Plan Plan (Free Text/Narrative):: would continue current therapy. will sign off and let Dr Negron original product support consultant and [facility] surgeon resume consultative care.
--- NOTE | 2018-08-10 13:51 | PN ---
DATE SEEN: 08/10/2018 HISTORY: Mr. Rosario is an 88-year-old man who was admitted on 08/05/[address] scan suggested diverticula, but no acute inflammation was noted initially. Because of continued pain, repeat CT scan done yesterday documented a small diverticular abscess with tracking toward the subcutaneous area of his left abdomen. Mr. Rosario was continued to have left abdominal pain that is essentially unchanged to perhaps slightly worse. He has remained afebrile. He is on cefoxitin and metronidazole IV antibiotics. PHYSICAL EXAMINATION: GENERAL: He is examined today in his hospital bed. He is extremely hard of hearing. VITAL SIGNS: Blood pressure 121/59, pulse 66 and regular, respirations normal, temp 98.6. SKIN: Clear with no sign of rash or erythema. HEENT: Showed him to be severely hard of hearing. LUNGS: Clear. HEART: Regular. ABDOMEN: Normoactive bowel sounds and extreme tenderness to palpation over the left abdominal wall, [id number] flank area. ASSESSMENT: Diverticular abscess without intraabdominal free air. PLAN: Continue the Mefoxin and metronidazole. We will have repeat surgery. We will continue to follow for the need for drainage and continue routine cares, pain control, etc. /[id number] YUNG/EDILMA
--- NOTE | 2018-08-10 16:51 | PCM.SURGPN ---
- General Info Date of Service: 08/10/18 Functional Status: Reports: Pain Controlled - Review of Systems General: Denies: Fever Gastrointestinal: Reports: Abdominal Pain (along left side) - Patient Data Vitals - Most Recent: Last Vital Signs Temp 98.6 F 08/10/18 07:50 Pulse 66 08/10/18 08:05 Resp 20 08/10/18 07:50 BP 121/59 L 08/10/18 08:05 Pulse Ox 83 L 08/10/18 11:14 Weight - Most Recent: 78.471 kg I&O - Last 24 Hours: Intake & Output 08/10/18 08/10/18 08/10/18 06:59 14:59 22:59 Intake Total 850 250 650 Output Total 250 550 Balance 850 0 100 Lab Results Last 24 Hrs: Laboratory Results - last 24 hr 08/09/18 08/10/18 Range/Units 19:27 09:03 POC Glucose 165 H 115 (80-116) mg/dL Andrea Results Last 24 Hrs: Microbiology 08/04/18 22:25 Aerobic Blood Culture - Final Blood - Venous - Lab Draw NO GROWTH AFTER 5 DAYS Anaerobic Blood Culture - Final NO GROWTH AFTER 5 DAYS 08/09/18 08:55 Urine Culture - Preliminary Urine, Clean Catch No Growth 08/04/18 22:20 Aerobic Blood Culture - Final Blood - Venous NO GROWTH AFTER 5 DAYS Anaerobic Blood Culture - Final NO GROWTH AFTER 5 DAYS 08/07/18 23:55 Urine Culture - Final Urine, Voided NO GROWTH AFTER 2 DAYS Med Orders - Current: Current Medications Acetaminophen (Tylenol) 650 mg PO Q6H PRN PRN Reason: Fever Last Admin: 08/06/18 00:17 Dose: 650 mg Amlodipine Besylate (Norvasc) 5 mg PO DAILY [facility] Last Admin: 08/10/18 08:05 Dose: 5 mg Artificial Tears (Refresh Liquigel 1%) 0 ml EYEBOTH TID [facility] Last Admin: 08/10/18 13:01 Dose: 1 drop Aspirin (Aspirin) 81 mg PO DAILY [facility] Last Admin: 08/10/18 08:04 Dose: 81 mg Clopidogrel Bisulfate (Plavix) 75 mg PO DAILY [facility] Last Admin: 08/10/18 08:07 Dose: 75 mg Lactated Ringer's (Ringers, Lactated) 1,000 mls @ 100 mls/hr IV ASDIRECTED [facility] Last Admin: 08/10/18 07:49 Dose: 100 mls/hr Piperacillin Sod/Tazobactam (Sod 3.375 gm/ Sodium Chloride) 50 mls @ 100 mls/ hr IV Q6H [facility] Isosorbide Mononitrate (Imdur) 15 mg PO WITHDINNER [facility] Last Admin: 08/09/18 17:54 Dose: 15 mg Magnesium Hydroxide (Milk Of Magnesia) 30 ml PO DAILY PRN PRN Reason: Constipation Memantine (Namenda) 10 mg PO BID [facility] Last Admin: 08/10/18 08:06 Dose: 10 mg Metoprolol Succinate (Toprol Xl) 50 mg PO DAILY [facility] Last Admin: 08/10/18 08:05 Dose: 50 mg Morphine Sulfate (Morphine) 6 mg SUBCUT Q4H PRN PRN Reason: Pain (moderate 4-6) Last Admin: 08/10/18 01:36 Dose: 6 mg Multivitamins/Minerals (Thera M Plus) 1 tab PO DAILY [facility] Last Admin: 08/10/18 08:06 Dose: 1 tab Sitagliptin Phosphate (Januvia) 50 mg PO DAILY [facility] Last Admin: 08/10/18 08:06 Dose: 50 mg Sodium Chloride (Saline Flush) 10 ml FLUSH ASDIRECTED PRN PRN Reason: Keep Vein Open Last Admin: 08/10/18 01:40 Dose: 10 ml Tramadol HCl (Ultram) 50 mg PO Q4H PRN PRN Reason: Pain (mild 1-3) Last Admin: 08/10/18 15:43 Dose: 50 mg Discontinued Medications Amoxicillin (Amoxil) 500 mg PO Q8H [facility] Last Admin: 08/09/18 00:52 Dose: Not Given Cefoxitin Sodium (Mefoxin) 1 gm IV Q8H [facility] Last Admin: 08/10/18 04:02 Dose: 1 gm Furosemide (Lasix) 20 mg IVPUSH NOW ONE Stop: 08/05/18 17:14 Last Admin: 08/05/18 17:34 Dose: 20 mg Hydromorphone HCl (Dilaudid) 0.5 mg IVPUSH ONETIME ONE Stop: 08/04/18 22:16 Last Admin: 08/04/18 23:21 Dose: 0.5 mg Hydromorphone HCl (Dilaudid) 0.5 mg IVPUSH Q6H PRN PRN Reason: Pain Last Admin: 08/05/18 06:36 Dose: 0.5 mg Sodium Chloride (Normal Saline) 500 mls @ 500 mls/hr IV .BOLUS ONE Stop: 08/04/18 23:14 Last Admin: 08/04/18 23:20 Dose: 500 mls/hr Piperacillin Sod/Tazobactam (Sod 3.375 gm/ Sodium Chloride) 50 mls @ 100 mls/ hr IV .ONCE ONE Stop: 08/04/18 23:51 Last Admin: 08/04/18 23:27 Dose: 100 mls/hr Sodium Chloride (Normal Saline) 1,000 mls @ 100 mls/hr IV ASDIRECTED [facility] Last Admin: 08/05/18 01:13 Dose: 100 mls/hr Piperacillin Sod/Tazobactam (Sod 3.375 gm/ Sodium Chloride) 50 mls @ 100 mls/ hr IV Q6H [facility] Last Admin: 08/06/18 06:22 Dose: 100 mls/hr Levofloxacin/Dextrose 500 mg/ (Premix) 100 mls @ 100 mls/hr IV ONETIME ONE Stop: 08/06/18 10:59 Last Admin: 08/06/18 11:09 Dose: 100 mls/hr Metronidazole 500 mg/ Premix 100 mls @ 100 mls/hr IV Q8H [facility] Last Admin: 08/08/18 08:14 Dose: 100 mls/hr Levofloxacin/Dextrose 250 mg/ (Premix) 50 mls @ 50 mls/hr IV Q24H [facility] Last Admin: 08/07/18 11:08 Dose: 50 mls/hr Cefoxitin Sodium 1 gm/ Sodium (Chloride) 50 mls @ 100 mls/hr IVPUSH Q8H [facility] Last Admin: 08/09/18 12:16 Dose: Not Given Metronidazole 500 mg/ Premix 100 mls @ 100 mls/hr IV Q8H [facility] Last Admin: 08/10/18 10:52 Dose: 100 mls/hr Metronidazole (Flagyl 500 Mg In Ns 100 Ml) Confirm Administered Dose 100 mls @ as directed .ROUTE .STK-MED ONE Stop: 08/10/18 00:34 Last Admin: 08/10/18 01:12 Dose: Not Given Cefoxitin Sodium (Mefoxin In Dextrose,Iso-Osm 1 Gm/50 Ml) Confirm Administered Dose 50 mls @ as directed .ROUTE .STK-MED ONE Stop: 08/10/18 03:55 Last Admin: 08/10/18 04:21 Dose: Not Given Cefoxitin Sodium (Mefoxin In Dextrose,Iso-Osm 1 Gm/50 Ml) 50 mls @ 100 mls/hr IV Q8H [facility] Last Admin: 08/10/18 12:51 Dose: 100 mls/hr Iopamidol (Isovue-370 (76%)) 75 ml IV ONETIME ONE Stop: 08/04/18 23:00 Last Admin: 08/04/18 23:15 Dose: 75 ml Iopamidol (Isovue-370 (76%)) 100 ml IV . DIRECTED ONE Stop: 08/08/18 14:54 Last Admin: 08/08/18 15:25 Dose: 100 ml Ketorolac Tromethamine (Toradol) 15 mg IVPUSH Q6H PRN PRN Reason: Pain Stop: 08/10/18 09:55 Last Admin: 08/08/18 08:03 Dose: 15 mg Metoprolol Succinate (Toprol Xl) 50 mg PO DAILY [facility] Morphine Sulfate (Morphine) 2 mg IVPUSH ONETIME ONE Stop: 08/09/18 01:35 Last Admin: 08/09/18 02:08 Dose: 2 mg Morphine Sulfate (Morphine) 6 mg SUBCUT Q4H PRN PRN Reason: Pain (moderate 4-6) Morphine Sulfate (Morphine Sulfate) 2 mg IVPUSH Q4H PRN PRN Reason: Pain (severe 7-10) Last Admin: 08/10/18 08:01 Dose: 2 mg Ondansetron HCl (Zofran) 4 mg IVPUSH ONETIME ONE Stop: 08/04/18 22:17 Last Admin: 08/04/18 23:21 Dose: 4 mg Ondansetron HCl (Zofran) 4 mg IVPUSH Q6H PRN PRN Reason: Nausea/Vomiting Pantoprazole Sodium (Protonix) 40 mg PO 0600 [facility] Last Admin: 08/08/18 05:35 Dose: 40 mg - Exam GI/Abdominal Exam: Soft, Tender (left abdomen) - Problem List Review Problem List Initiated/Reviewed/Updated: Yes - My Orders Last 24 Hours: Active Orders 24 hr Category Date Time Status Regular Diet [DIET] Diet 08/10/18 Dinner Active Piperacillin/Tazobactam [Zosyn] 3.375 gm Med 08/10/18 17:00 Ordered Sodium Chloride 0.9% [Normal Saline] 50 ml IV Q6H Medication Orders Acetaminophen (Tylenol) 650 mg PO Q6H PRN PRN Reason: Fever Last Admin: 08/06/18 00:17 Dose: 650 mg Admin: 08/05/18 16:19 Dose: 650 mg Admin: 08/05/18 09:49 Dose: 650 mg Amlodipine Besylate (Norvasc) 5 mg PO DAILY [facility] Last Admin: 08/10/18 08:05 Dose: 5 mg Admin: 08/09/18 08:20 Dose: Admin: 08/08/18 08:05 Dose: 5 mg Admin: 08/07/18 09:34 Dose: 5 mg Admin: 08/06/18 08:35 Dose: 5 mg Admin: 08/05/18 09:51 Dose: 5 mg Artificial Tears (Refresh Liquigel 1%) 0 ml EYEBOTH TID PEND[facility] Last Admin: 08/10/18 13:01 Dose: 1 drop Admin: 08/10/18 08:05 Dose: 1 drop Admin: 08/09/18 20:48 Dose: 1 drop Admin: 08/09/18 14:05 Dose: 1 drop Admin: 08/09/18 08:18 Dose: 1 drop Admin: 08/09/18 00:53 Dose: Not Given Admin: 08/08/18 14:52 Dose: 1 drop Admin: 08/08/18 08:06 Dose: 1 drop Admin: 08/07/18 20:38 Dose: 1 drop Admin: 08/07/18 13:51 Dose: 1 drop Admin: 08/07/18 09:34 Dose: 1 drop Admin: 08/06/18 20:36 Dose: 1 drop Admin: 08/06/18 14:24 Dose: 1 drop Admin: 08/06/18 08:35 Dose: 1 drop Admin: 08/05/18 21:42 Dose: 1 drop Admin: 08/05/18 13:59 Dose: 1 drop Admin: 08/05/18 09:52 Dose: 1 drop Aspirin (Aspirin) 81 mg PO DAILY [facility] Last Admin: 08/10/18 08:04 Dose: 81 mg Admin: 08/09/18 08:20 Dose: Admin: 08/08/18 08:07 Dose: 81 mg Admin: 08/07/18 09:34 Dose: 81 mg Admin: 08/06/18 08:32 Dose: 81 mg Admin: 08/05/18 09:50 Dose: 81 mg Clopidogrel Bisulfate (Plavix) 75 mg PO DAILY [facility] Last Admin: 08/10/18 08:07 Dose: 75 mg Admin: 08/09/18 08:21 Dose: Admin: 08/08/18 08:06 Dose: 75 mg Admin: 08/07/18 09:34 Dose: 75 mg Admin: 08/06/18 08:35 Dose: 75 mg Admin: 08/05/18 09:51 Dose: 75 mg Lactated Ringer's (Ringers, Lactated) 1,000 mls @ 100 mls/hr IV ASDIRECTED [facility] Last Admin: 08/10/18 07:49 Dose: 100 mls/hr Infusion: 08/10/18 05:24 Dose: 100 mls/hr Admin: 08/09/18 19:24 Dose: 100 mls/hr Infusion: 08/09/18 17:10 Dose: 100 mls/hr Admin: 08/09/18 07:10 Dose: 100 mls/hr Infusion: 08/09/18 04:32 Dose: 100 mls/hr Admin: 08/08/18 18:32 Dose: 100 mls/hr Piperacillin Sod/Tazobactam (Sod 3.375 gm/ Sodium Chloride) 50 mls @ 100 mls/ hr IV Q6H PENDING SALE TO [facility] Isosorbide Mononitrate (Imdur) 15 mg PO WITHDINNER [facility] Last Admin: 08/09/18 17:54 Dose: 15 mg Admin: 08/08/18 18:37 Dose: 15 mg Admin: 08/07/18 17:24 Dose: 15 mg Admin: 08/06/18 17:12 Dose: 15 mg Admin: 08/05/18 19:07 Dose: 15 mg Magnesium Hydroxide (Milk Of Magnesia) 30 ml PO DAILY PRN PRN Reason: Constipation Memantine (Namenda) 10 mg PO BID [facility] Last Admin: 08/10/18 08:06 Dose: 10 mg Admin: 08/09/18 20:48 Dose: 10 mg Admin: 08/09/18 08:20 Dose: Admin: 08/08/18 22:01 Dose: Admin: 08/08/18 08:05 Dose: 10 mg Admin: 08/07/18 20:38 Dose: 10 mg Admin: 08/07/18 09:34 Dose: 10 mg Admin: 08/06/18 20:36 Dose: 10 mg Admin: 08/06/18 08:32 Dose: 10 mg Admin: 08/05/18 21:42 Dose: 10 mg Admin: 08/05/18 09:51 Dose: 10 mg Metoprolol Succinate (Toprol Xl) 50 mg PO DAILY [facility] Last Admin: 08/10/18 08:05 Dose: 50 mg Admin: 08/09/18 08:20 Dose: Admin: 08/08/18 08:06 Dose: 50 mg Admin: 08/07/18 09:35 Dose: 50 mg Admin: 08/06/18 08:32 Dose: 50 mg Admin: 08/05/18 09:52 Dose: 50 mg Morphine Sulfate (Morphine) 6 mg SUBCUT Q4H PRN PRN Reason: Pain (moderate 4-6) Last Admin: 08/10/18 01:36 Dose: 6 mg Admin: 08/09/18 16:07 Dose: 6 mg Multivitamins/Minerals (Thera M Plus) 1 tab PO DAILY [facility] Last Admin: 08/10/18 08:06 Dose: 1 tab Admin: 08/09/18 08:20 Dose: Admin: 08/08/18 08:06 Dose: 1 tab Admin: 08/07/18 09:35 Dose: 1 tab Admin: 08/06/18 09:44 Dose: 1 tab Sitagliptin Phosphate (Januvia) 50 mg PO DAILY [facility] Last Admin: 08/10/18 08:06 Dose: 50 mg Admin: 08/09/18 08:20 Dose: Admin: 08/08/18 08:05 Dose: 50 mg Admin: 08/07/18 09:34 Dose: 50 mg Admin: 08/06/18 08:32 Dose: 50 mg Admin: 08/05/18 09:51 Dose: 50 mg Sodium Chloride (Saline Flush) 10 ml FLUSH ASDIRECTED PRN PRN Reason: Keep Vein Open Last Admin: 08/10/18 01:40 Dose: 10 ml Admin: 08/09/18 12:04 Dose: 10 ml Admin: 08/09/18 10:41 Dose: 10 ml Admin: 08/08/18 09:25 Dose: 10 ml Admin: 08/08/18 08:01 Dose: 10 ml Admin: 08/08/18 01:02 Dose: 10 ml Admin: 08/07/18 18:24 Dose: 10 ml Admin: 08/07/18 11:10 Dose: 10 ml Admin: 08/07/18 11:09 Dose: 10 ml Admin: 08/07/18 09:48 Dose: 10 ml Admin: 08/07/18 02:14 Dose: 10 ml Admin: 08/06/18 17:18 Dose: 10 ml Admin: 08/06/18 10:51 Dose: 10 ml Admin: 08/06/18 09:45 Dose: 10 ml Admin: 08/06/18 06:22 Dose: 10 ml Admin: 08/06/18 00:06 Dose: 10 ml Admin: 08/05/18 20:06 Dose: 10 ml Admin: 08/05/18 18:30 Dose: 10 ml Admin: 08/05/18 12:03 Dose: 10 ml Tramadol HCl (Ultram) 50 mg PO Q4H PRN PRN Reason: Pain (mild 1-3) Last Admin: 08/10/18 15:43 Dose: 50 mg Admin: 08/10/18 08:02 Dose: 50 mg - Assessment Assessment (Free Text/Narrative):: Diverticulitis - Plan Plan (Free Text/Narrative):: Will switch to IV Zosyn
[2018-08-10] MEDS: Piperacillin/Tazobactam 3.375 GM in Sodium Chloride 0.9% 50 ML IV SCH ×2 (18:00→23:12)
[2018-08-10] MEDS: Isosorbide Mononitrate 30 MG Tab.ER PO SCH (18:04)
[2018-08-11] MEDS: Piperacillin/Tazobactam 3.375 GM in Sodium Chloride 0.9% 50 ML IV SCH ×4 (05:03→23:43)
[2018-08-11] MEDS: amLODIPine 5 MG Tab PO SCH (08:23)
[2018-08-11] MEDS: Clopidogrel 75 MG Tab PO SCH (08:23)
[2018-08-11] MEDS: Memantine 10 MG Tab PO SCH ×2 (08:24→21:22)
[2018-08-11] MEDS: Multivitamins with Iron/Calcium/Folic Acid/Minerals Tab PO SCH (08:24)
[2018-08-11] MEDS: Metoprolol Succinate 50 MG Tab.ER PO SCH (08:24)
[2018-08-11] MEDS: Carboxymethylcellulose Sodium 1% Ophth Gel 15 ML Bottle EYEBOTH SCH ×3 (08:24→21:22)
[2018-08-11] MEDS: Aspirin 81 MG Tab.Chew PO SCH (08:24)
[2018-08-11] MEDS: Morphine 10 MG/ML SDV SUBCUT PRN ×2 (09:40→15:48)
--- NOTE | 2018-08-11 10:00 | PCM.SURGPN ---
- General Info Date of Service: 08/11/18 Functional Status: Reports: Pain Controlled, Tolerating Diet, Ambulating - Review of Systems General: Denies: Fever Gastrointestinal: Reports: Abdominal Pain (more localized to LLQ today) - Patient Data Vitals - Most Recent: Last Vital Signs Temp 98.1 F 08/11/18 00:00 Pulse 73 08/11/18 08:24 Resp 22 H 08/11/18 00:00 BP 142/68 H 08/11/18 08:24 Pulse Ox 91 L 08/11/18 06:00 Weight - Most Recent: 78.471 kg I&O - Last 24 Hours: Intake & Output 08/10/18 08/11/18 08/11/18 22:59 06:59 14:59 Intake Total 1084 863 Output Total 550 Balance 534 863 Lab Results Last 24 Hrs: Laboratory Results - last 24 hr 08/10/18 08/11/18 Range/Units 19:29 07:14 POC Glucose 132 H 99 (80-116) mg/dL Andrea Results Last 24 Hrs: Microbiology 08/09/18 08:55 Urine Culture - Final Urine, Clean Catch No Growth 08/04/18 22:25 Aerobic Blood Culture - Final Blood - Venous - Lab Draw NO GROWTH AFTER 5 DAYS Anaerobic Blood Culture - Final NO GROWTH AFTER 5 DAYS 08/04/18 22:20 Aerobic Blood Culture - Final Blood - Venous NO GROWTH AFTER 5 DAYS Anaerobic Blood Culture - Final NO GROWTH AFTER 5 DAYS 08/07/18 23:55 Urine Culture - Final Urine, Voided NO GROWTH AFTER 2 DAYS Med Orders - Current: Current Medications Acetaminophen (Tylenol) 650 mg PO Q6H PRN PRN Reason: Fever Last Admin: 08/06/18 00:17 Dose: 650 mg Amlodipine Besylate (Norvasc) 5 mg PO DAILY [facility] Last Admin: 08/11/18 08:23 Dose: 5 mg Artificial Tears (Refresh Liquigel 1%) 0 ml EYEBOTH TID [facility] Last Admin: 08/11/18 08:24 Dose: 1 drop Aspirin (Aspirin) 81 mg PO DAILY [facility] Last Admin: 08/11/18 08:24 Dose: 81 mg Clopidogrel Bisulfate (Plavix) 75 mg PO DAILY [facility] Last Admin: 08/11/18 08:23 Dose: 75 mg Lactated Ringer's (Ringers, Lactated) 1,000 mls @ 100 mls/hr IV ASDIRECTED [facility] Last Admin: 08/10/18 20:11 Dose: 100 mls/hr Piperacillin Sod/Tazobactam (Sod 3.375 gm/ Sodium Chloride) 50 mls @ 100 mls/ hr IV Q6H [facility] Last Admin: 08/11/18 05:03 Dose: 100 mls/hr Isosorbide Mononitrate (Imdur) 15 mg PO WITHDINNER [facility] Last Admin: 08/10/18 18:04 Dose: 15 mg Magnesium Hydroxide (Milk Of Magnesia) 30 ml PO DAILY PRN PRN Reason: Constipation Memantine (Namenda) 10 mg PO BID [facility] Last Admin: 08/11/18 08:24 Dose: 10 mg Metoprolol Succinate (Toprol Xl) 50 mg PO DAILY [facility] Last Admin: 08/11/18 08:24 Dose: 50 mg Morphine Sulfate (Morphine) 6 mg SUBCUT Q4H PRN PRN Reason: Pain (moderate 4-6) Last Admin: 08/11/18 09:40 Dose: 6 mg Multivitamins/Minerals (Thera M Plus) 1 tab PO DAILY [facility] Last Admin: 08/11/18 08:24 Dose: 1 tab Sitagliptin Phosphate (Januvia) 50 mg PO DAILY [facility] Last Admin: 08/11/18 08:24 Dose: 50 mg Sodium Chloride (Saline Flush) 10 ml FLUSH ASDIRECTED PRN PRN Reason: Keep Vein Open Last Admin: 08/10/18 18:03 Dose: 10 ml Tramadol HCl (Ultram) 50 mg PO Q4H PRN PRN Reason: Pain (mild 1-3) Last Admin: 08/10/18 15:43 Dose: 50 mg Discontinued Medications Amoxicillin (Amoxil) 500 mg PO Q8H [facility] Last Admin: 08/09/18 00:52 Dose: Not Given Cefoxitin Sodium (Mefoxin) 1 gm IV Q8H [facility] Last Admin: 08/10/18 04:02 Dose: 1 gm Furosemide (Lasix) 20 mg IVPUSH NOW ONE Stop: 08/05/18 17:14 Last Admin: 08/05/18 17:34 Dose: 20 mg Hydromorphone HCl (Dilaudid) 0.5 mg IVPUSH ONETIME ONE Stop: 08/04/18 22:16 Last Admin: 08/04/18 23:21 Dose: 0.5 mg Hydromorphone HCl (Dilaudid) 0.5 mg IVPUSH Q6H PRN PRN Reason: Pain Last Admin: 08/05/18 06:36 Dose: 0.5 mg Sodium Chloride (Normal Saline) 500 mls @ 500 mls/hr IV .BOLUS ONE Stop: 08/04/18 23:14 Last Admin: 08/04/18 23:20 Dose: 500 mls/hr Piperacillin Sod/Tazobactam (Sod 3.375 gm/ Sodium Chloride) 50 mls @ 100 mls/ hr IV .ONCE ONE Stop: 08/04/18 23:51 Last Admin: 08/04/18 23:27 Dose: 100 mls/hr Sodium Chloride (Normal Saline) 1,000 mls @ 100 mls/hr IV ASDIRECTED [facility] Last Admin: 08/05/18 01:13 Dose: 100 mls/hr Piperacillin Sod/Tazobactam (Sod 3.375 gm/ Sodium Chloride) 50 mls @ 100 mls/ hr IV Q6H [facility] Last Admin: 08/06/18 06:22 Dose: 100 mls/hr Levofloxacin/Dextrose 500 mg/ (Premix) 100 mls @ 100 mls/hr IV ONETIME ONE Stop: 08/06/18 10:59 Last Admin: 08/06/18 11:09 Dose: 100 mls/hr Metronidazole 500 mg/ Premix 100 mls @ 100 mls/hr IV Q8H [facility] Last Admin: 08/08/18 08:14 Dose: 100 mls/hr Levofloxacin/Dextrose 250 mg/ (Premix) 50 mls @ 50 mls/hr IV Q24H [facility] Last Admin: 08/07/18 11:08 Dose: 50 mls/hr Cefoxitin Sodium 1 gm/ Sodium (Chloride) 50 mls @ 100 mls/hr IVPUSH Q8H [facility] Last Admin: 08/09/18 12:16 Dose: Not Given Metronidazole 500 mg/ Premix 100 mls @ 100 mls/hr IV Q8H [facility] Last Admin: 08/10/18 10:52 Dose: 100 mls/hr Metronidazole (Flagyl 500 Mg In Ns 100 Ml) Confirm Administered Dose 100 mls @ as directed .ROUTE .STK-MED ONE Stop: 08/10/18 00:34 Last Admin: 08/10/18 01:12 Dose: Not Given Cefoxitin Sodium (Mefoxin In Dextrose,Iso-Osm 1 Gm/50 Ml) Confirm Administered Dose 50 mls @ as directed .ROUTE .STK-MED ONE Stop: 08/10/18 03:55 Last Admin: 08/10/18 04:21 Dose: Not Given Cefoxitin Sodium (Mefoxin In Dextrose,Iso-Osm 1 Gm/50 Ml) 50 mls @ 100 mls/hr IV Q8H [facility] Last Admin: 08/10/18 12:51 Dose: 100 mls/hr Iopamidol (Isovue-370 (76%)) 75 ml IV ONETIME ONE Stop: 08/04/18 23:00 Last Admin: 08/04/18 23:15 Dose: 75 ml Iopamidol (Isovue-370 (76%)) 100 ml IV . DIRECTED ONE Stop: 08/08/18 14:54 Last Admin: 08/08/18 15:25 Dose: 100 ml Ketorolac Tromethamine (Toradol) 15 mg IVPUSH Q6H PRN PRN Reason: Pain Stop: 08/10/18 09:55 Last Admin: 08/08/18 08:03 Dose: 15 mg Metoprolol Succinate (Toprol Xl) 50 mg PO DAILY [facility] Morphine Sulfate (Morphine) 2 mg IVPUSH ONETIME ONE Stop: 08/09/18 01:35 Last Admin: 08/09/18 02:08 Dose: 2 mg Morphine Sulfate (Morphine) 6 mg SUBCUT Q4H PRN PRN Reason: Pain (moderate 4-6) Morphine Sulfate (Morphine Sulfate) 2 mg IVPUSH Q4H PRN PRN Reason: Pain (severe 7-10) Last Admin: 08/10/18 08:01 Dose: 2 mg Ondansetron HCl (Zofran) 4 mg IVPUSH ONETIME ONE Stop: 08/04/18 22:17 Last Admin: 08/04/18 23:21 Dose: 4 mg Ondansetron HCl (Zofran) 4 mg IVPUSH Q6H PRN PRN Reason: Nausea/Vomiting Pantoprazole Sodium (Protonix) 40 mg PO 0600 [facility] Last Admin: 08/08/18 05:35 Dose: 40 mg - Exam General: Alert GI/Abdominal Exam: Soft, Tender (along left side, no significant change) - Problem List Review Problem List Initiated/Reviewed/Updated: Yes - My Orders Last 24 Hours: Active Orders 24 hr Category Date Time Status Regular Diet [DIET] Diet 08/10/18 Dinner Active BASIC METABOLIC PANEL,BMP [CHEM] Routine Lab 08/12/18 07:00 Ordered CBC WITH AUTO DIFF [HEME] Routine Lab 08/12/18 07:00 Ordered Piperacillin/Tazobactam [Zosyn] 3.375 gm Med 08/10/18 17:00 Active Sodium Chloride 0.9% [Normal Saline] 50 ml IV Q6H Medication Orders Acetaminophen (Tylenol) 650 mg PO Q6H PRN PRN Reason: Fever Last Admin: 08/06/18 00:17 Dose: 650 mg Admin: 08/05/18 16:19 Dose: 650 mg Admin: 08/05/18 09:49 Dose: 650 mg Amlodipine Besylate (Norvasc) 5 mg PO DAILY [facility] Last Admin: 08/11/18 08:23 Dose: 5 mg Admin: 08/10/18 08:05 Dose: 5 mg Admin: 08/09/18 08:20 Dose: Admin: 08/08/18 08:05 Dose: 5 mg Admin: 08/07/18 09:34 Dose: 5 mg Admin: 08/06/18 08:35 Dose: 5 mg Admin: 08/05/18 09:51 Dose: 5 mg Artificial Tears (Refresh Liquigel 1%) 0 ml EYEBOTH TID [facility] Last Admin: 08/11/18 08:24 Dose: 1 drop Admin: 08/10/18 20:50 Dose: 1 drop Admin: 08/10/18 13:01 Dose: 1 drop Admin: 08/10/18 08:05 Dose: 1 drop Admin: 08/09/18 20:48 Dose: 1 drop Admin: 08/09/18 14:05 Dose: 1 drop Admin: 08/09/18 08:18 Dose: 1 drop Admin: 08/09/18 00:53 Dose: Not Given Admin: 08/08/18 14:52 Dose: 1 drop Admin: 08/08/18 08:06 Dose: 1 drop Admin: 08/07/18 20:38 Dose: 1 drop Admin: 08/07/18 13:51 Dose: 1 drop Admin: 08/07/18 09:34 Dose: 1 drop Admin: 08/06/18 20:36 Dose: 1 drop Admin: 08/06/18 14:24 Dose: 1 drop Admin: 08/06/18 08:35 Dose: 1 drop Admin: 08/05/18 21:42 Dose: 1 drop Admin: 08/05/18 13:59 Dose: 1 drop Admin: 08/05/18 09:52 Dose: 1 drop Aspirin (Aspirin) 81 mg PO DAILY [facility] Last Admin: 08/11/18 08:24 Dose: 81 mg Admin: 08/10/18 08:04 Dose: 81 mg Admin: 08/09/18 08:20 Dose: Admin: 08/08/18 08:07 Dose: 81 mg Admin: 08/07/18 09:34 Dose: 81 mg Admin: 08/06/18 08:32 Dose: 81 mg Admin: 08/05/18 09:50 Dose: 81 mg Clopidogrel Bisulfate (Plavix) 75 mg PO DAILY [facility] Last Admin: 08/11/18 08:23 Dose: 75 mg Admin: 08/10/18 08:07 Dose: 75 mg Admin: 08/09/18 08:21 Dose: Admin: 08/08/18 08:06 Dose: 75 mg Admin: 08/07/18 09:34 Dose: 75 mg Admin: 08/06/18 08:35 Dose: 75 mg Admin: 08/05/18 09:51 Dose: 75 mg Lactated Ringer's (Ringers, Lactated) 1,000 mls @ 100 mls/hr IV ASDIRECTED [facility] Last Admin: 08/10/18 20:11 Dose: 100 mls/hr Infusion: 08/10/18 17:49 Dose: 100 mls/hr Admin: 08/10/18 07:49 Dose: 100 mls/hr Infusion: 08/10/18 05:24 Dose: 100 mls/hr Admin: 08/09/18 19:24 Dose: 100 mls/hr Infusion: 08/09/18 17:10 Dose: 100 mls/hr Admin: 08/09/18 07:10 Dose: 100 mls/hr Infusion: 08/09/18 04:32 Dose: 100 mls/hr Admin: 08/08/18 18:32 Dose: 100 mls/hr Piperacillin Sod/Tazobactam (Sod 3.375 gm/ Sodium Chloride) 50 mls @ 100 mls/ hr IV Q6H [facility] Last Admin: 08/11/18 05:03 Dose: 100 mls/hr Admin: 08/10/18 23:12 Dose: 100 mls/hr Admin: 08/10/18 18:00 Dose: 100 mls/hr Isosorbide Mononitrate (Imdur) 15 mg PO WITHDINNER [facility] Last Admin: 08/10/18 18:04 Dose: 15 mg Admin: 08/09/18 17:54 Dose: 15 mg Admin: 08/08/18 18:37 Dose: 15 mg Admin: 08/07/18 17:24 Dose: 15 mg Admin: 08/06/18 17:12 Dose: 15 mg Admin: 08/05/18 19:07 Dose: 15 mg Magnesium Hydroxide (Milk Of Magnesia) 30 ml PO DAILY PRN PRN Reason: Constipation Memantine (Namenda) 10 mg PO BID [facility] Last Admin: 08/11/18 08:24 Dose: 10 mg Admin: 08/10/18 20:50 Dose: 10 mg Admin: 08/10/18 08:06 Dose: 10 mg Admin: 08/09/18 20:48 Dose: 10 mg Admin: 08/09/18 08:20 Dose: Admin: 08/08/18 22:01 Dose: Admin: 08/08/18 08:05 Dose: 10 mg Admin: 08/07/18 20:38 Dose: 10 mg Admin: 08/07/18 09:34 Dose: 10 mg Admin: 08/06/18 20:36 Dose: 10 mg Admin: 08/06/18 08:32 Dose: 10 mg Admin: 08/05/18 21:42 Dose: 10 mg Admin: 08/05/18 09:51 Dose: 10 mg Metoprolol Succinate (Toprol Xl) 50 mg PO DAILY [facility] Last Admin: 08/11/18 08:24 Dose: 50 mg Admin: 08/10/18 08:05 Dose: 50 mg Admin: 08/09/18 08:20 Dose: Admin: 08/08/18 08:06 Dose: 50 mg Admin: 08/07/18 09:35 Dose: 50 mg Admin: 08/06/18 08:32 Dose: 50 mg Admin: 08/05/18 09:52 Dose: 50 mg Morphine Sulfate (Morphine) 6 mg SUBCUT Q4H PRN PRN Reason: Pain (moderate 4-6) Last Admin: 08/11/18 09:40 Dose: 6 mg Admin: 08/10/18 23:58 Dose: 6 mg Admin: 08/10/18 01:36 Dose: 6 mg Admin: 08/09/18 16:07 Dose: 6 mg Multivitamins/Minerals (Thera M Plus) 1 tab PO DAILY [facility] Last Admin: 08/11/18 08:24 Dose: 1 tab Admin: 08/10/18 08:06 Dose: 1 tab Admin: 08/09/18 08:20 Dose: Admin: 08/08/18 08:06 Dose: 1 tab Admin: 08/07/18 09:35 Dose: 1 tab Admin: 08/06/18 09:44 Dose: 1 tab Sitagliptin Phosphate (Januvia) 50 mg PO DAILY [facility] Last Admin: 08/11/18 08:24 Dose: 50 mg Admin: 08/10/18 08:06 Dose: 50 mg Admin: 08/09/18 08:20 Dose: Admin: 08/08/18 08:05 Dose: 50 mg Admin: 08/07/18 09:34 Dose: 50 mg Admin: 08/06/18 08:32 Dose: 50 mg Admin: 08/05/18 09:51 Dose: 50 mg Sodium Chloride (Saline Flush) 10 ml FLUSH ASDIRECTED PRN PRN Reason: Keep Vein Open Last Admin: 08/10/18 18:03 Dose: 10 ml Admin: 08/10/18 01:40 Dose: 10 ml Admin: 08/09/18 12:04 Dose: 10 ml Admin: 08/09/18 10:41 Dose: 10 ml Admin: 08/08/18 09:25 Dose: 10 ml Admin: 08/08/18 08:01 Dose: 10 ml Admin: 08/08/18 01:02 Dose: 10 ml Admin: 08/07/18 18:24 Dose: 10 ml Admin: 08/07/18 11:10 Dose: 10 ml Admin: 08/07/18 11:09 Dose: 10 ml Admin: 08/07/18 09:48 Dose: 10 ml Admin: 08/07/18 02:14 Dose: 10 ml Admin: 08/06/18 17:18 Dose: 10 ml Admin: 08/06/18 10:51 Dose: 10 ml Admin: 08/06/18 09:45 Dose: 10 ml Admin: 08/06/18 06:22 Dose: 10 ml Admin: 08/06/18 00:06 Dose: 10 ml Admin: 08/05/18 20:06 Dose: 10 ml Admin: 08/05/18 18:30 Dose: 10 ml Admin: 08/05/18 12:03 Dose: 10 ml Tramadol HCl (Ultram) 50 mg PO Q4H PRN PRN Reason: Pain (mild 1-3) Last Admin: 08/10/18 15:43 Dose: 50 mg Admin: 08/10/18 08:02 Dose: 50 mg - Assessment Assessment (Free Text/Narrative):: Diverticulitis - Plan Plan (Free Text/Narrative):: Cont IV Zosyn, recheck labs in am
[2018-08-11] MEDS: Sodium Chloride 0.9% 10 ML Syringe FLUSH PRN (10:45)
--- NOTE | 2018-08-11 12:18 | PN ---
DATE SEEN: 08/11/2018 HISTORY: Freeman is an 88-year-old man hospitalized now since 08/05/2018 for left- sided abdominal pain. Initial clinical diagnosis was diverticulitis without much evidence on CT scan. A followup CT scan done 2 days ago showed a small diverticular abscess tracking towards the abdominal wall. He is being treated with Zosyn IV antibiotics. He is eating and was able to eat a full breakfast this morning of eggs, toast, etc. He is examined sitting in the chair. He is extremely hard of hearing. PHYSICAL EXAMINATION: GENERAL: He is alert, but he is confused as to details of his current problems. VITAL SIGNS: Blood pressure 142/68, pulse 92, temp 97.6, O2 saturation 87% on 3 L of nasal cannula oxygen. LUNGS: Clear. HEART: Regular. ABDOMEN: Normal bowel sounds. There is exquisite tenderness to palpation in the abdominal wall in the left mid abdomen radiating towards the left flank. EXTREMITIES: Show no edema. ASSESSMENT: 1. Diverticular abscess, not sufficiently localized for drainage at this time. 2. Chronic essential hypertension. 3. Coronary artery disease. 4. Dementia. 5. Type 2 diabetes. 6. Palliative care. PLAN: We will continue current medications and palliative cares regarding his underlying dementia, weakness, and coronary artery disease. We will continue to follow with Surgery. /[id number] YUNG/EDILMA
[2018-08-11] MEDS: Isosorbide Mononitrate 30 MG Tab.ER PO SCH (18:36)
[2018-08-11] MEDS ORDERED: Sodium Chloride 0.9% 250 ML IV SCH (22:30)
[2018-08-12] MEDS: Sodium Chloride 0.9% 10 ML Syringe FLUSH PRN ×4 (00:25→21:45)
[2018-08-12] MEDS ORDERED: Sodium Chloride 0.9% 250 ML IV SCH (01:15)
[2018-08-12] MEDS: Piperacillin/Tazobactam 3.375 GM in Sodium Chloride 0.9% 50 ML IV SCH ×4 (04:16→22:12)
[2018-08-12] MEDS: Aspirin 81 MG Tab.Chew PO SCH (09:24)
[2018-08-12] MEDS: Carboxymethylcellulose Sodium 1% Ophth Gel 15 ML Bottle EYEBOTH SCH ×3 (09:26→21:44)
[2018-08-12] MEDS: Multivitamins with Iron/Calcium/Folic Acid/Minerals Tab PO SCH (09:26)
[2018-08-12] MEDS: amLODIPine 5 MG Tab PO SCH (09:26)
[2018-08-12] MEDS: Clopidogrel 75 MG Tab PO SCH (09:26)
[2018-08-12] MEDS: Memantine 10 MG Tab PO SCH ×2 (09:26→21:43)
[2018-08-12] MEDS: Metoprolol Succinate 50 MG Tab.ER PO SCH (09:26)
[2018-08-12] MEDS: Acetaminophen 325 MG Tab PO PRN (09:27)
[2018-08-12] MEDS: Morphine 10 MG/ML SDV SUBCUT PRN (09:33)
--- NOTE | 2018-08-12 15:20 | PCM.SURGPN ---
- General Info Date of Service: 08/12/18 Functional Status: Reports: Pain Controlled, Tolerating Diet, Ambulating - Review of Systems General: Reports: No Symptoms. Denies: Fever Gastrointestinal: Reports: Abdominal Pain (about the same he says) - Patient Data Vitals - Most Recent: Last Vital Signs Temp 98.2 F 08/12/18 08:00 Pulse 72 08/12/18 09:26 Resp 20 08/12/18 08:00 BP 136/68 08/12/18 09:26 Pulse Ox 86 L 08/12/18 08:00 Weight - Most Recent: 81.102 kg I&O - Last 24 Hours: Intake & Output 08/12/18 08/12/18 08/12/18 06:59 14:59 22:59 Intake Total 100 Output Total 300 Balance -200 Lab Results Last 24 Hrs: Laboratory Results - last 24 hr 08/11/18 08/12/18 08/12/18 Range/Units 21:21 06:50 06:50 WBC 12.0 (4.5-12.0) X10-3/uL RBC 5.38 (4.30-5.75) x10(6)uL Hgb 16.0 H (11.5-15.5) g/dL Hct 48.3 (30.0-51.3) % MCV 89.8 (80-96) fL MCH 29.8 (27.7-33.6) pg MCHC 33.2 (32.2-35.4) g/dL RDW 14.5 (11.5-15.5) % Plt Count 249 (125-369) X10(3)uL MPV 7.4 (7.4-10.4) fL Neut % (Auto) 61.1 (46-82) % Lymph % (Auto) 26.7 (13-37) % [place] % (Auto) 9.3 (4-12) % Eos % (Auto) 2 (1.0-5.0) % Baso % (Auto) 1 (0-2) % Neut # (Auto) 7.4 (1.6-8.3) # Lymph # (Auto) 3.2 (0.6-5.0) # [place] # (Auto) 1.1 (0.0-1.3) # Eos # (Auto) 0.2 (0.0-0.8) # Baso # (Auto) 0.1 (0.0-0.2) # Sodium 143 (135-145) mmol/L Potassium 4.0 (3.5-5.3) mmol/L Chloride 108 (100-110) mmol/L Carbon Dioxide 30 (21-32) mmol/L BUN 16 D (7-18) mg/dL Creatinine 1.0 (0.70-1.30) mg/dL Est Cr Clr Drug Dosing 47.74 mL/min Estimated GFR (MDRD) > 60 (>60) BUN/Creatinine Ratio 16.0 (9-20) Glucose 109 (80-116) mg/dL POC Glucose 157 H (80-116) mg/dL Calcium 8.1 L (8.6-10.2) mg/dL Andrea Results Last 24 Hrs: Microbiology 08/09/18 08:55 Urine Culture - Final Urine, Clean Catch No Growth Med Orders - Current: Current Medications Acetaminophen (Tylenol) 650 mg PO Q6H PRN PRN Reason: Fever Last Admin: 08/12/18 09:27 Dose: 650 mg Amlodipine Besylate (Norvasc) 5 mg PO DAILY [facility] Last Admin: 08/12/18 09:26 Dose: 5 mg Artificial Tears (Refresh Liquigel 1%) 0 ml EYEBOTH TID [facility] Last Admin: 08/12/18 15:04 Dose: 1 drop Aspirin (Aspirin) 81 mg PO DAILY [facility] Last Admin: 08/12/18 09:24 Dose: 81 mg Clopidogrel Bisulfate (Plavix) 75 mg PO DAILY [facility] Last Admin: 08/12/18 09:26 Dose: 75 mg Piperacillin Sod/Tazobactam (Sod 3.375 gm/ Sodium Chloride) 50 mls @ 100 mls/ hr IV Q6H [facility] Last Admin: 08/12/18 10:50 Dose: 100 mls/hr Isosorbide Mononitrate (Imdur) 15 mg PO WITHDINNER [facility] Last Admin: 08/11/18 18:36 Dose: 15 mg Magnesium Hydroxide (Milk Of Magnesia) 30 ml PO DAILY PRN PRN Reason: Constipation Memantine (Namenda) 10 mg PO BID [facility] Last Admin: 08/12/18 09:26 Dose: 10 mg Metoprolol Succinate (Toprol Xl) 50 mg PO DAILY [facility] Last Admin: 08/12/18 09:26 Dose: 50 mg Morphine Sulfate (Morphine) 6 mg SUBCUT Q4H PRN PRN Reason: Pain (moderate 4-6) Last Admin: 08/12/18 09:33 Dose: 6 mg Multivitamins/Minerals (Thera M Plus) 1 tab PO DAILY [facility] Last Admin: 08/12/18 09:26 Dose: 1 tab Sitagliptin Phosphate (Januvia) 50 mg PO DAILY [facility] Last Admin: 08/12/18 09:24 Dose: 50 mg Sodium Chloride (Saline Flush) 10 ml FLUSH ASDIRECTED PRN PRN Reason: Keep Vein Open Last Admin: 08/12/18 10:51 Dose: 10 ml Tramadol HCl (Ultram) 50 mg PO Q4H PRN PRN Reason: Pain (mild 1-3) Last Admin: 08/10/18 15:43 Dose: 50 mg Discontinued Medications Amoxicillin (Amoxil) 500 mg PO Q8H [facility] Last Admin: 08/09/18 00:52 Dose: Not Given Cefoxitin Sodium (Mefoxin) 1 gm IV Q8H [facility] Last Admin: 08/10/18 04:02 Dose: 1 gm Furosemide (Lasix) 20 mg IVPUSH NOW ONE Stop: 08/05/18 17:14 Last Admin: 08/05/18 17:34 Dose: 20 mg Hydromorphone HCl (Dilaudid) 0.5 mg IVPUSH ONETIME ONE Stop: 08/04/18 22:16 Last Admin: 08/04/18 23:21 Dose: 0.5 mg Hydromorphone HCl (Dilaudid) 0.5 mg IVPUSH Q6H PRN PRN Reason: Pain Last Admin: 08/05/18 06:36 Dose: 0.5 mg Sodium Chloride (Normal Saline) 500 mls @ 500 mls/hr IV .BOLUS ONE Stop: 08/04/18 23:14 Last Admin: 08/04/18 23:20 Dose: 500 mls/hr Piperacillin Sod/Tazobactam (Sod 3.375 gm/ Sodium Chloride) 50 mls @ 100 mls/ hr IV .ONCE ONE Stop: 08/04/18 23:51 Last Admin: 08/04/18 23:27 Dose: 100 mls/hr Sodium Chloride (Normal Saline) 1,000 mls @ 100 mls/hr IV ASDIRECTED [facility] Last Admin: 08/05/18 01:13 Dose: 100 mls/hr Piperacillin Sod/Tazobactam (Sod 3.375 gm/ Sodium Chloride) 50 mls @ 100 mls/ hr IV Q6H [facility] Last Admin: 08/06/18 06:22 Dose: 100 mls/hr Levofloxacin/Dextrose 500 mg/ (Premix) 100 mls @ 100 mls/hr IV ONETIME ONE Stop: 08/06/18 10:59 Last Admin: 08/06/18 11:09 Dose: 100 mls/hr Metronidazole 500 mg/ Premix 100 mls @ 100 mls/hr IV Q8H [facility] Last Admin: 08/08/18 08:14 Dose: 100 mls/hr Levofloxacin/Dextrose 250 mg/ (Premix) 50 mls @ 50 mls/hr IV Q24H [facility] Last Admin: 08/07/18 11:08 Dose: 50 mls/hr Cefoxitin Sodium 1 gm/ Sodium (Chloride) 50 mls @ 100 mls/hr IVPUSH Q8H [facility] Last Admin: 08/09/18 12:16 Dose: Not Given Metronidazole 500 mg/ Premix 100 mls @ 100 mls/hr IV Q8H [facility] Last Admin: 08/10/18 10:52 Dose: 100 mls/hr Lactated Ringer's (Ringers, Lactated) 1,000 mls @ 100 mls/hr IV ASDIRECTED [facility] Last Admin: 08/10/18 20:11 Dose: 100 mls/hr Metronidazole (Flagyl 500 Mg In Ns 100 Ml) Confirm Administered Dose 100 mls @ as directed .ROUTE .[facility] ONE Stop: 08/10/18 00:34 Last Admin: 08/10/18 01:12 Dose: Not Given Cefoxitin Sodium (Mefoxin In Dextrose,Iso-Osm 1 Gm/50 Ml) Confirm Administered Dose 50 mls @ as directed .ROUTE .[facility] ONE Stop: 08/10/18 03:55 Last Admin: 08/10/18 04:21 Dose: Not Given Cefoxitin Sodium (Mefoxin In Dextrose,Iso-Osm 1 Gm/50 Ml) 50 mls @ 100 mls/hr IV Q8H [facility] Last Admin: 08/10/18 12:51 Dose: 100 mls/hr Sodium Chloride (Normal Saline) 250 mls @ 100 mls/hr IV ASDIRECTED [facility] Stop: 08/12/18 00:59 Sodium Chloride (Normal Saline) 250 mls @ 100 mls/hr IV ASDIRECTED [facility] Iopamidol (Isovue-370 (76%)) 75 ml IV ONETIME ONE Stop: 08/04/18 23:00 Last Admin: 08/04/18 23:15 Dose: 75 ml Iopamidol (Isovue-370 (76%)) 100 ml IV . DIRECTED ONE Stop: 08/08/18 14:54 Last Admin: 08/08/18 15:25 Dose: 100 ml Ketorolac Tromethamine (Toradol) 15 mg IVPUSH Q6H PRN PRN Reason: Pain Stop: 08/10/18 09:55 Last Admin: 08/08/18 08:03 Dose: 15 mg Metoprolol Succinate (Toprol Xl) 50 mg PO DAILY [facility] Morphine Sulfate (Morphine) 2 mg IVPUSH ONETIME ONE Stop: 08/09/18 01:35 Last Admin: 08/09/18 02:08 Dose: 2 mg Morphine Sulfate (Morphine) 6 mg SUBCUT Q4H PRN PRN Reason: Pain (moderate 4-6) Morphine Sulfate (Morphine Sulfate) 2 mg IVPUSH Q4H PRN PRN Reason: Pain (severe 7-10) Last Admin: 08/10/18 08:01 Dose: 2 mg Ondansetron HCl (Zofran) 4 mg IVPUSH ONETIME ONE Stop: 08/04/18 22:17 Last Admin: 08/04/18 23:21 Dose: 4 mg Ondansetron HCl (Zofran) 4 mg IVPUSH Q6H PRN PRN Reason: Nausea/Vomiting Pantoprazole Sodium (Protonix) 40 mg PO 0600 [facility] Last Admin: 08/08/18 05:35 Dose: 40 mg - Exam GI/Abdominal Exam: Soft, Tender (about the same, difficult to assess). No: Distended, Guarding, Rigid - Problem List Review Problem List Initiated/Reviewed/Updated: Yes - My Orders Last 24 Hours: Medication Orders Acetaminophen (Tylenol) 650 mg PO Q6H PRN PRN Reason: Fever Last Admin: 08/12/18 09:27 Dose: 650 mg Admin: 08/06/18 00:17 Dose: 650 mg Admin: 08/05/18 16:19 Dose: 650 mg Admin: 08/05/18 09:49 Dose: 650 mg Amlodipine Besylate (Norvasc) 5 mg PO DAILY [facility] Last Admin: 08/12/18 09:26 Dose: 5 mg Admin: 08/11/18 08:23 Dose: 5 mg Admin: 08/10/18 08:05 Dose: 5 mg Admin: 08/09/18 08:20 Dose: Admin: 08/08/18 08:05 Dose: 5 mg Admin: 08/07/18 09:34 Dose: 5 mg Admin: 08/06/18 08:35 Dose: 5 mg Admin: 08/05/18 09:51 Dose: 5 mg Artificial Tears (Refresh Liquigel 1%) 0 ml EYEBOTH TID [facility] Last Admin: 08/12/18 15:04 Dose: 1 drop Admin: 08/12/18 09:26 Dose: 1 drop Admin: 08/11/18 21:22 Dose: 1 drop Admin: 08/11/18 13:49 Dose: Not Given Admin: 08/11/18 08:24 Dose: 1 drop Admin: 08/10/18 20:50 Dose: 1 drop Admin: 08/10/18 13:01 Dose: 1 drop Admin: 08/10/18 08:05 Dose: 1 drop Admin: 08/09/18 20:48 Dose: 1 drop Admin: 08/09/18 14:05 Dose: 1 drop Admin: 08/09/18 08:18 Dose: 1 drop Admin: 08/09/18 00:53 Dose: Not Given Admin: 08/08/18 14:52 Dose: 1 drop Admin: 08/08/18 08:06 Dose: 1 drop Admin: 08/07/18 20:38 Dose: 1 drop Admin: 08/07/18 13:51 Dose: 1 drop Admin: 08/07/18 09:34 Dose: 1 drop Admin: 08/06/18 20:36 Dose: 1 drop Admin: 08/06/18 14:24 Dose: 1 drop Admin: 08/06/18 08:35 Dose: 1 drop Admin: 08/05/18 21:42 Dose: 1 drop Admin: 08/05/18 13:59 Dose: 1 drop Admin: 08/05/18 09:52 Dose: 1 drop Aspirin (Aspirin) 81 mg PO DAILY [facility] Last Admin: 08/12/18 09:24 Dose: 81 mg Admin: 08/11/18 08:24 Dose: 81 mg Admin: 08/10/18 08:04 Dose: 81 mg Admin: 08/09/18 08:20 Dose: Admin: 08/08/18 08:07 Dose: 81 mg Admin: 08/07/18 09:34 Dose: 81 mg Admin: 08/06/18 08:32 Dose: 81 mg Admin: 08/05/18 09:50 Dose: 81 mg Clopidogrel Bisulfate (Plavix) 75 mg PO DAILY [facility] Last Admin: 08/12/18 09:26 Dose: 75 mg Admin: 08/11/18 08:23 Dose: 75 mg Admin: 08/10/18 08:07 Dose: 75 mg Admin: 08/09/18 08:21 Dose: Admin: 08/08/18 08:06 Dose: 75 mg Admin: 08/07/18 09:34 Dose: 75 mg Admin: 08/06/18 08:35 Dose: 75 mg Admin: 08/05/18 09:51 Dose: 75 mg Piperacillin Sod/Tazobactam (Sod 3.375 gm/ Sodium Chloride) 50 mls @ 100 mls/ hr IV Q6H [facility] Last Admin: 08/12/18 10:50 Dose: 100 mls/hr Admin: 08/12/18 04:16 Dose: 100 mls/hr Admin: 08/11/18 23:43 Dose: 100 mls/hr Admin: 08/11/18 18:00 Dose: 100 mls/hr Admin: 08/11/18 10:49 Dose: 100 mls/hr Admin: 08/11/18 05:03 Dose: 100 mls/hr Admin: 08/10/18 23:12 Dose: 100 mls/hr Admin: 08/10/18 18:00 Dose: 100 mls/hr Isosorbide Mononitrate (Imdur) 15 mg PO WITHDINNEDA [facility] Last Admin: 08/11/18 18:36 Dose: 15 mg Admin: 08/10/18 18:04 Dose: 15 mg Admin: 08/09/18 17:54 Dose: 15 mg Admin: 08/08/18 18:37 Dose: 15 mg Admin: 08/07/18 17:24 Dose: 15 mg Admin: 08/06/18 17:12 Dose: 15 mg Admin: 08/05/18 19:07 Dose: 15 mg Magnesium Hydroxide (Milk Of Magnesia) 30 ml PO DAILY PRN PRN Reason: Constipation Memantine (Namenda) 10 mg PO BID [facility] Last Admin: 08/12/18 09:26 Dose: 10 mg Admin: 08/11/18 21:22 Dose: 10 mg Admin: 08/11/18 08:24 Dose: 10 mg Admin: 08/10/18 20:50 Dose: 10 mg Admin: 08/10/18 08:06 Dose: 10 mg Admin: 08/09/18 20:48 Dose: 10 mg Admin: 08/09/18 08:20 Dose: Admin: 08/08/18 22:01 Dose: Admin: 08/08/18 08:05 Dose: 10 mg Admin: 08/07/18 20:38 Dose: 10 mg Admin: 08/07/18 09:34 Dose: 10 mg Admin: 08/06/18 20:36 Dose: 10 mg Admin: 08/06/18 08:32 Dose: 10 mg Admin: 08/05/18 21:42 Dose: 10 mg Admin: 08/05/18 09:51 Dose: 10 mg Metoprolol Succinate (Toprol Xl) 50 mg PO DAILY [facility] Last Admin: 08/12/18 09:26 Dose: 50 mg Admin: 08/11/18 08:24 Dose: 50 mg Admin: 08/10/18 08:05 Dose: 50 mg Admin: 08/09/18 08:20 Dose: Admin: 08/08/18 08:06 Dose: 50 mg Admin: 08/07/18 09:35 Dose: 50 mg Admin: 08/06/18 08:32 Dose: 50 mg Admin: 08/05/18 09:52 Dose: 50 mg Morphine Sulfate (Morphine) 6 mg SUBCUT Q4H PRN PRN Reason: Pain (moderate 4-6) Last Admin: 08/12/18 09:33 Dose: 6 mg Admin: 08/11/18 15:48 Dose: 6 mg Admin: 08/11/18 09:40 Dose: 6 mg Admin: 08/10/18 23:58 Dose: 6 mg Admin: 08/10/18 01:36 Dose: 6 mg Admin: 08/09/18 16:07 Dose: 6 mg Multivitamins/Minerals (Thera M Plus) 1 tab PO DAILY [facility] Last Admin: 08/12/18 09:26 Dose: 1 tab Admin: 08/11/18 08:24 Dose: 1 tab Admin: 08/10/18 08:06 Dose: 1 tab Admin: 08/09/18 08:20 Dose: Admin: 08/08/18 08:06 Dose: 1 tab Admin: 08/07/18 09:35 Dose: 1 tab Admin: 08/06/18 09:44 Dose: 1 tab Sitagliptin Phosphate (Januvia) 50 mg PO DAILY [facility] Last Admin: 08/12/18 09:24 Dose: 50 mg Admin: 08/11/18 08:24 Dose: 50 mg Admin: 08/10/18 08:06 Dose: 50 mg Admin: 08/09/18 08:20 Dose: Admin: 08/08/18 08:05 Dose: 50 mg Admin: 08/07/18 09:34 Dose: 50 mg Admin: 08/06/18 08:32 Dose: 50 mg Admin: 08/05/18 09:51 Dose: 50 mg Sodium Chloride (Saline Flush) 10 ml FLUSH ASDIRECTED PRN PRN Reason: Keep Vein Open Last Admin: 08/12/18 10:51 Dose: 10 ml Admin: 08/12/18 04:19 Dose: 10 ml Admin: 08/12/18 00:25 Dose: 10 ml Admin: 08/11/18 10:45 Dose: 10 ml Admin: 08/10/18 18:03 Dose: 10 ml Admin: 08/10/18 01:40 Dose: 10 ml Admin: 08/09/18 12:04 Dose: 10 ml Admin: 08/09/18 10:41 Dose: 10 ml Admin: 08/08/18 09:25 Dose: 10 ml Admin: 08/08/18 08:01 Dose: 10 ml Admin: 08/08/18 01:02 Dose: 10 ml Admin: 08/07/18 18:24 Dose: 10 ml Admin: 08/07/18 11:10 Dose: 10 ml Admin: 08/07/18 11:09 Dose: 10 ml Admin: 08/07/18 09:48 Dose: 10 ml Admin: 08/07/18 02:14 Dose: 10 ml Admin: 08/06/18 17:18 Dose: 10 ml Admin: 08/06/18 10:51 Dose: 10 ml Admin: 08/06/18 09:45 Dose: 10 ml Admin: 08/06/18 06:22 Dose: 10 ml Admin: 08/06/18 00:06 Dose: 10 ml Admin: 08/05/18 20:06 Dose: 10 ml Admin: 08/05/18 18:30 Dose: 10 ml Admin: 08/05/18 12:03 Dose: 10 ml Tramadol HCl (Ultram) 50 mg PO Q4H PRN PRN Reason: Pain (mild 1-3) Last Admin: 08/10/18 15:43 Dose: 50 mg Admin: 08/10/18 08:02 Dose: 50 mg - Assessment Assessment (Free Text/Narrative):: Diverticulitis - Plan Plan (Free Text/Narrative):: Consider rechecking CT scan in a day or two since he is so difficult to assess clinically
[2018-08-12] MEDS: Isosorbide Mononitrate 30 MG Tab.ER PO SCH (17:54)
[2018-08-12] MEDS: traMADol 50 MG Tab PO PRN (21:44)
[2018-08-13] MEDS: traMADol 50 MG Tab PO PRN ×2 (02:12→20:51)
[2018-08-13] MEDS: Piperacillin/Tazobactam 3.375 GM in Sodium Chloride 0.9% 50 ML IV SCH ×4 (04:21→22:05)
[2018-08-13] MEDS: Sodium Chloride 0.9% 10 ML Syringe FLUSH PRN ×2 (04:24→22:04)
[2018-08-13] MEDS: Memantine 10 MG Tab PO SCH ×2 (09:23→20:51)
[2018-08-13] MEDS: Aspirin 81 MG Tab.Chew PO SCH (09:23)
[2018-08-13] MEDS: Metoprolol Succinate 50 MG Tab.ER PO SCH (09:24)
[2018-08-13] MEDS: amLODIPine 5 MG Tab PO SCH (09:24)
[2018-08-13] MEDS: Clopidogrel 75 MG Tab PO SCH (09:24)
[2018-08-13] MEDS: Multivitamins with Iron/Calcium/Folic Acid/Minerals Tab PO SCH (09:24)
[2018-08-13] MEDS: Carboxymethylcellulose Sodium 1% Ophth Gel 15 ML Bottle EYEBOTH SCH ×3 (09:24→20:51)
--- NOTE | 2018-08-13 11:37 | PN ---
DATE SEEN: 08/13/2018 HISTORY: Freeman is an 88-year-old man admitted to Acute Care on 08/05/2018 because of abdominal pain, suspected diverticulitis. He also had evidence of urinary tract infection. CT of the abdomen was quite unremarkable on admission. He was treated with IV antibiotics to cover both diverticulitis and UTI. Culture returned showing only Gram-positive organisms in the urine, and he was switched to oral amoxicillin. Within 24 hours, his abdominal pain seemed to worsen. Repeat CT scan suggested diverticulitis with perforation walled off to the anterior abdomen. He was started back on cefoxitin and metronidazole and then switched to IV Zosyn on 08/10/2018. The patient has continued to have abdominal pain and repeat CT scan of the abdomen was done today and results pending. PHYSICAL EXAMINATION: GENERAL: The patient is examined in his bed. He reports the pain is essentially unchanged and remains in the left anterior abdomen to the left flank. VITAL SIGNS: Blood pressure 138/67, pulse 82 and regular, respirations 18, temp 98.6. SKIN: Shows no sign of erythema or rash. HEENT: Shows his mouth to be dry. LUNGS: Clear. HEART: Regular without murmur or gallop. ABDOMEN: Normoactive bowel sounds. Soft. He has tenderness to palpation of his left abdomen extending from mid abdomen down towards the left inguinal area and around the left flank. No fluctuance is noted and the tenderness today actually seems to be slightly less than 2 days ago. LABORATORY DATA: Pending. ASSESSMENT: Diverticulitis with localized abscess. PLAN: At this time, we will continue his IV Zosyn. Dr. Negron is following for surgical assessment. I anticipate the need for several more days of intravenous antibiotics with eventual return to [facility] upon discharge. We will continue his palliative care measures for his underlying cognitive deficits, coronary artery disease, and continue his sitagliptin orally for diabetes. /[id number] YUNG/EDILMA
--- NOTE | 2018-08-13 15:57 | PCM.SURGPN ---
- General Info Date of Service: 08/13/18 Functional Status: Reports: Pain Controlled, Tolerating Diet (mostly drinking), Other (2 BM's yesterday) - Review of Systems General: Reports: No Symptoms. Denies: Fever, Chills Gastrointestinal: Reports: Abdominal Pain (about the same on left side) - Patient Data Vitals - Most Recent: Last Vital Signs Temp 98.6 F 08/13/18 07:16 Pulse 82 08/13/18 09:24 Resp 18 08/13/18 07:16 BP 138/67 08/13/18 09:24 Pulse Ox 84 L 08/13/18 07:16 Weight - Most Recent: 80.286 kg I&O - Last 24 Hours: Intake & Output 08/13/18 08/13/18 08/13/18 06:59 14:59 22:59 Intake Total 100 Balance 100 Lab Results Last 24 Hrs: Laboratory Results - last 24 hr 08/12/18 08/13/18 08/13/18 Range/Units 06:40 05:01 10:50 WBC 10.7 (4.5-12.0) X10-3/uL RBC 5.15 (4.30-5.75) x10(6)uL Hgb 15.3 (11.5-15.5) g/dL Hct 46.2 (30.0-51.3) % MCV 89.7 (80-96) fL MCH 29.8 (27.7-33.6) pg MCHC 33.2 (32.2-35.4) g/dL RDW 14.6 (11.5-15.5) % Plt Count 245 (125-369) X10(3)uL MPV 7.7 (7.4-10.4) fL Neut % (Auto) 63.3 (46-82) % Lymph % (Auto) 25.3 (13-37) % [place] % (Auto) 8.9 (4-12) % Eos % (Auto) 2 (1.0-5.0) % Baso % (Auto) 1 (0-2) % Neut # (Auto) 6.7 (1.6-8.3) # Lymph # (Auto) 2.7 (0.6-5.0) # [place] # (Auto) 1.0 (0.0-1.3) # Eos # (Auto) 0.2 (0.0-0.8) # Baso # (Auto) 0.1 (0.0-0.2) # Sodium (135-145) mmol/L Potassium (3.5-5.3) mmol/L Chloride (100-110) mmol/L Carbon Dioxide (21-32) mmol/L BUN (7-18) mg/dL Creatinine (0.70-1.30) mg/dL Est Cr Clr Drug Dosing mL/min Estimated GFR (MDRD) (>60) BUN/Creatinine Ratio (9-20) Glucose (80-116) mg/dL POC Glucose 108 89 (80-116) mg/dL Calcium (8.6-10.2) mg/dL C-Reactive Protein (0.5-0.9) mg/dL 08/13/18 08/13/18 Range/Units 10:50 10:50 WBC (4.5-12.0) X10-3/uL RBC (4.30-5.75) x10(6)uL Hgb (11.5-15.5) g/dL Hct (30.0-51.3) % MCV (80-96) fL MCH (27.7-33.6) pg MCHC (32.2-35.4) g/dL RDW (11.5-15.5) % Plt Count (125-369) X10(3)uL MPV (7.4-10.4) fL Neut % (Auto) (46-82) % Lymph % (Auto) (13-37) % [place] % (Auto) (4-12) % Eos % (Auto) (1.0-5.0) % Baso % (Auto) (0-2) % Neut # (Auto) (1.6-8.3) # Lymph # (Auto) (0.6-5.0) # [place] # (Auto) (0.0-1.3) # Eos # (Auto) (0.0-0.8) # Baso # (Auto) (0.0-0.2) # Sodium 144 (135-145) mmol/L Potassium 3.6 (3.5-5.3) mmol/L Chloride 109 (100-110) mmol/L Carbon Dioxide 27 (21-32) mmol/L BUN 14 (7-18) mg/dL Creatinine 0.9 (0.70-1.30) mg/dL Est Cr Clr Drug Dosing 53.04 mL/min Estimated GFR (MDRD) > 60 (>60) BUN/Creatinine Ratio 15.6 (9-20) Glucose 91 (80-116) mg/dL POC Glucose (80-116) mg/dL Calcium 7.9 L (8.6-10.2) mg/dL C-Reactive Protein 3.0 H* (0.5-0.9) mg/dL Med Orders - Current: Current Medications Acetaminophen (Tylenol) 650 mg PO Q6H PRN PRN Reason: Fever Last Admin: 08/12/18 09:27 Dose: 650 mg Amlodipine Besylate (Norvasc) 5 mg PO DAILY [facility] Last Admin: 08/13/18 09:24 Dose: 5 mg Artificial Tears (Refresh Liquigel 1%) 0 ml EYEBOTH TID [facility] Last Admin: 08/13/18 15:27 Dose: 1 drop Aspirin (Aspirin) 81 mg PO DAILY [facility] Last Admin: 08/13/18 09:23 Dose: 81 mg Clopidogrel Bisulfate (Plavix) 75 mg PO DAILY [facility] Last Admin: 08/13/18 09:24 Dose: 75 mg Piperacillin Sod/Tazobactam (Sod 3.375 gm/ Sodium Chloride) 50 mls @ 100 mls/ hr IV Q6H [facility] Last Admin: 08/13/18 11:30 Dose: 100 mls/hr Isosorbide Mononitrate (Imdur) 15 mg PO WITHDINNER [facility] Last Admin: 08/12/18 17:54 Dose: 15 mg Magnesium Hydroxide (Milk Of Magnesia) 30 ml PO DAILY PRN PRN Reason: Constipation Memantine (Namenda) 10 mg PO BID [facility] Last Admin: 08/13/18 09:23 Dose: 10 mg Metoprolol Succinate (Toprol Xl) 50 mg PO DAILY [facility] Last Admin: 08/13/18 09:24 Dose: 50 mg Morphine Sulfate (Morphine) 6 mg SUBCUT Q4H PRN PRN Reason: Pain (moderate 4-6) Last Admin: 08/12/18 09:33 Dose: 6 mg Multivitamins/Minerals (Thera M Plus) 1 tab PO DAILY [facility] Last Admin: 08/13/18 09:24 Dose: 1 tab Sitagliptin Phosphate (Januvia) 50 mg PO DAILY [facility] Last Admin: 08/13/18 09:23 Dose: 50 mg Sodium Chloride (Saline Flush) 10 ml FLUSH ASDIRECTED PRN PRN Reason: Keep Vein Open Last Admin: 08/13/18 04:24 Dose: 10 ml Tramadol HCl (Ultram) 50 mg PO Q4H PRN PRN Reason: Pain (mild 1-3) Last Admin: 08/13/18 02:12 Dose: 50 mg Discontinued Medications Amoxicillin (Amoxil) 500 mg PO Q8H [facility] Last Admin: 08/09/18 00:52 Dose: Not Given Cefoxitin Sodium (Mefoxin) 1 gm IV Q8H [facility] Last Admin: 08/10/18 04:02 Dose: 1 gm Furosemide (Lasix) 20 mg IVPUSH NOW ONE Stop: 08/05/18 17:14 Last Admin: 08/05/18 17:34 Dose: 20 mg Hydromorphone HCl (Dilaudid) 0.5 mg IVPUSH ONETIME ONE Stop: 08/04/18 22:16 Last Admin: 08/04/18 23:21 Dose: 0.5 mg Hydromorphone HCl (Dilaudid) 0.5 mg IVPUSH Q6H PRN PRN Reason: Pain Last Admin: 08/05/18 06:36 Dose: 0.5 mg Sodium Chloride (Normal Saline) 500 mls @ 500 mls/hr IV .BOLUS ONE Stop: 08/04/18 23:14 Last Admin: 08/04/18 23:20 Dose: 500 mls/hr Piperacillin Sod/Tazobactam (Sod 3.375 gm/ Sodium Chloride) 50 mls @ 100 mls/ hr IV .ONCE ONE Stop: 08/04/18 23:51 Last Admin: 08/04/18 23:27 Dose: 100 mls/hr Sodium Chloride (Normal Saline) 1,000 mls @ 100 mls/hr IV ASDIRECTED [facility] Last Admin: 08/05/18 01:13 Dose: 100 mls/hr Piperacillin Sod/Tazobactam (Sod 3.375 gm/ Sodium Chloride) 50 mls @ 100 mls/ hr IV Q6H [facility] Last Admin: 08/06/18 06:22 Dose: 100 mls/hr Levofloxacin/Dextrose 500 mg/ (Premix) 100 mls @ 100 mls/hr IV ONETIME ONE Stop: 08/06/18 10:59 Last Admin: 08/06/18 11:09 Dose: 100 mls/hr Metronidazole 500 mg/ Premix 100 mls @ 100 mls/hr IV Q8H [facility] Last Admin: 08/08/18 08:14 Dose: 100 mls/hr Levofloxacin/Dextrose 250 mg/ (Premix) 50 mls @ 50 mls/hr IV Q24H [facility] Last Admin: 08/07/18 11:08 Dose: 50 mls/hr Cefoxitin Sodium 1 gm/ Sodium (Chloride) 50 mls @ 100 mls/hr IVPUSH Q8H [facility] Last Admin: 08/09/18 12:16 Dose: Not Given Metronidazole 500 mg/ Premix 100 mls @ 100 mls/hr IV Q8H [facility] Last Admin: 08/10/18 10:52 Dose: 100 mls/hr Lactated Ringer's (Ringers, Lactated) 1,000 mls @ 100 mls/hr IV ASDIRECTED [facility] Last Admin: 08/10/18 20:11 Dose: 100 mls/hr Metronidazole (Flagyl 500 Mg In Ns 100 Ml) Confirm Administered Dose 100 mls @ as directed .ROUTE .[facility] ONE Stop: 08/10/18 00:34 Last Admin: 08/10/18 01:12 Dose: Not Given Cefoxitin Sodium (Mefoxin In Dextrose,Iso-Osm 1 Gm/50 Ml) Confirm Administered Dose 50 mls @ as directed .ROUTE .[facility] ONE Stop: 08/10/18 03:55 Last Admin: 08/10/18 04:21 Dose: Not Given Cefoxitin Sodium (Mefoxin In Dextrose,Iso-Osm 1 Gm/50 Ml) 50 mls @ 100 mls/hr IV Q8H [facility] Last Admin: 08/10/18 12:51 Dose: 100 mls/hr Sodium Chloride (Normal Saline) 250 mls @ 100 mls/hr IV ASDIRECTED [facility] Stop: 08/12/18 00:59 Sodium Chloride (Normal Saline) 250 mls @ 100 mls/hr IV ASDIRECTED [facility] Iopamidol (Isovue-370 (76%)) 75 ml IV ONETIME ONE Stop: 08/04/18 23:00 Last Admin: 08/04/18 23:15 Dose: 75 ml Iopamidol (Isovue-370 (76%)) 100 ml IV . DIRECTED ONE Stop: 08/08/18 14:54 Last Admin: 08/08/18 15:25 Dose: 100 ml Ketorolac Tromethamine (Toradol) 15 mg IVPUSH Q6H PRN PRN Reason: Pain Stop: 08/10/18 09:55 Last Admin: 08/08/18 08:03 Dose: 15 mg Metoprolol Succinate (Toprol Xl) 50 mg PO DAILY [facility] Morphine Sulfate (Morphine) 2 mg IVPUSH ONETIME ONE Stop: 08/09/18 01:35 Last Admin: 08/09/18 02:08 Dose: 2 mg Morphine Sulfate (Morphine) 6 mg SUBCUT Q4H PRN PRN Reason: Pain (moderate 4-6) Morphine Sulfate (Morphine Sulfate) 2 mg IVPUSH Q4H PRN PRN Reason: Pain (severe 7-10) Last Admin: 08/10/18 08:01 Dose: 2 mg Ondansetron HCl (Zofran) 4 mg IVPUSH ONETIME ONE Stop: 08/04/18 22:17 Last Admin: 08/04/18 23:21 Dose: 4 mg Ondansetron HCl (Zofran) 4 mg IVPUSH Q6H PRN PRN Reason: Nausea/Vomiting Pantoprazole Sodium (Protonix) 40 mg PO 0600 [facility] Last Admin: 08/08/18 05:35 Dose: 40 mg - Exam GI/Abdominal Exam: Soft, Tender (along left side about the same) - Problem List Review Problem List Initiated/Reviewed/Updated: Yes - My Orders Last 24 Hours: Active Orders 24 hr Category Date Time Status Abdomen Pelvis wo Cont [CT] Routine Exams 08/13/18 08:19 Taken UA W/MICROSCOPIC [URIN] Routine Lab 08/13/18 10:40 Ordered Medication Orders Acetaminophen (Tylenol) 650 mg PO Q6H PRN PRN Reason: Fever Last Admin: 08/12/18 09:27 Dose: 650 mg Admin: 08/06/18 00:17 Dose: 650 mg Admin: 08/05/18 16:19 Dose: 650 mg Admin: 08/05/18 09:49 Dose: 650 mg Amlodipine Besylate (Norvasc) 5 mg PO DAILY [facility] Last Admin: 08/13/18 09:24 Dose: 5 mg Admin: 08/12/18 09:26 Dose: 5 mg Admin: 08/11/18 08:23 Dose: 5 mg Admin: 08/10/18 08:05 Dose: 5 mg Admin: 08/09/18 08:20 Dose: Admin: 08/08/18 08:05 Dose: 5 mg Admin: 08/07/18 09:34 Dose: 5 mg Admin: 08/06/18 08:35 Dose: 5 mg Admin: 08/05/18 09:51 Dose: 5 mg Artificial Tears (Refresh Liquigel 1%) 0 ml EYEBOTH TID [facility] Last Admin: 08/13/18 15:27 Dose: 1 drop Admin: 08/13/18 09:24 Dose: 1 drop Admin: 08/12/18 21:44 Dose: 1 drop Admin: 08/12/18 15:04 Dose: 1 drop Admin: 08/12/18 09:26 Dose: 1 drop Admin: 08/11/18 21:22 Dose: 1 drop Admin: 08/11/18 13:49 Dose: Not Given Admin: 08/11/18 08:24 Dose: 1 drop Admin: 08/10/18 20:50 Dose: 1 drop Admin: 08/10/18 13:01 Dose: 1 drop Admin: 08/10/18 08:05 Dose: 1 drop Admin: 08/09/18 20:48 Dose: 1 drop Admin: 08/09/18 14:05 Dose: 1 drop Admin: 08/09/18 08:18 Dose: 1 drop Admin: 08/09/18 00:53 Dose: Not Given Admin: 08/08/18 14:52 Dose: 1 drop Admin: 08/08/18 08:06 Dose: 1 drop Admin: 08/07/18 20:38 Dose: 1 drop Admin: 08/07/18 13:51 Dose: 1 drop Admin: 08/07/18 09:34 Dose: 1 drop Admin: 08/06/18 20:36 Dose: 1 drop Admin: 08/06/18 14:24 Dose: 1 drop Admin: 08/06/18 08:35 Dose: 1 drop Admin: 08/05/18 21:42 Dose: 1 drop Admin: 08/05/18 13:59 Dose: 1 drop Admin: 08/05/18 09:52 Dose: 1 drop Aspirin (Aspirin) 81 mg PO DAILY [facility] Last Admin: 08/13/18 09:23 Dose: 81 mg Admin: 08/12/18 09:24 Dose: 81 mg Admin: 08/11/18 08:24 Dose: 81 mg Admin: 08/10/18 08:04 Dose: 81 mg Admin: 08/09/18 08:20 Dose: Admin: 08/08/18 08:07 Dose: 81 mg Admin: 08/07/18 09:34 Dose: 81 mg Admin: 08/06/18 08:32 Dose: 81 mg Admin: 08/05/18 09:50 Dose: 81 mg Clopidogrel Bisulfate (Plavix) 75 mg PO DAILY [facility] Last Admin: 08/13/18 09:24 Dose: 75 mg Admin: 08/12/18 09:26 Dose: 75 mg Admin: 08/11/18 08:23 Dose: 75 mg Admin: 08/10/18 08:07 Dose: 75 mg Admin: 08/09/18 08:21 Dose: Admin: 08/08/18 08:06 Dose: 75 mg Admin: 08/07/18 09:34 Dose: 75 mg Admin: 08/06/18 08:35 Dose: 75 mg Admin: 08/05/18 09:51 Dose: 75 mg Piperacillin Sod/Tazobactam (Sod 3.375 gm/ Sodium Chloride) 50 mls @ 100 mls/ hr IV Q6H [facility] Last Admin: 08/13/18 11:30 Dose: 100 mls/hr Admin: 08/13/18 04:21 Dose: 100 mls/hr Admin: 08/12/18 22:12 Dose: 100 mls/hr Admin: 08/12/18 17:15 Dose: 100 mls/hr Admin: 08/12/18 10:50 Dose: 100 mls/hr Admin: 08/12/18 04:16 Dose: 100 mls/hr Admin: 08/11/18 23:43 Dose: 100 mls/hr Admin: 08/11/18 18:00 Dose: 100 mls/hr Admin: 08/11/18 10:49 Dose: 100 mls/hr Admin: 08/11/18 05:03 Dose: 100 mls/hr Admin: 08/10/18 23:12 Dose: 100 mls/hr Admin: 08/10/18 18:00 Dose: 100 mls/hr Isosorbide Mononitrate (Imdur) 15 mg PO WITHDINNER [facility] Last Admin: 08/12/18 17:54 Dose: 15 mg Admin: 08/11/18 18:36 Dose: 15 mg Admin: 08/10/18 18:04 Dose: 15 mg Admin: 08/09/18 17:54 Dose: 15 mg Admin: 08/08/18 18:37 Dose: 15 mg Admin: 08/07/18 17:24 Dose: 15 mg Admin: 08/06/18 17:12 Dose: 15 mg Admin: 08/05/18 19:07 Dose: 15 mg Magnesium Hydroxide (Milk Of Magnesia) 30 ml PO DAILY PRN PRN Reason: Constipation Memantine (Namenda) 10 mg PO BID [facility] Admin: 08/13/18 09:23 Dose: 10 mg Admin: 08/12/18 21:43 Dose: 10 mg Admin: 08/12/18 09:26 Dose: 10 mg Admin: 08/11/18 21:22 Dose: 10 mg Admin: 08/11/18 08:24 Dose: 10 mg Admin: 08/10/18 20:50 Dose: 10 mg Admin: 08/10/18 08:06 Dose: 10 mg Admin: 08/09/18 20:48 Dose: 10 mg Admin: 08/09/18 08:20 Dose: Admin: 08/08/18 22:01 Dose: Admin: 08/08/18 08:05 Dose: 10 mg Admin: 08/07/18 20:38 Dose: 10 mg Admin: 08/07/18 09:34 Dose: 10 mg Admin: 08/06/18 20:36 Dose: 10 mg Admin: 08/06/18 08:32 Dose: 10 mg Admin: 08/05/18 21:42 Dose: 10 mg Admin: 08/05/18 09:51 Dose: 10 mg Metoprolol Succinate (Toprol Xl) 50 mg PO DAILY [facility] Admin: 08/13/18 09:24 Dose: 50 mg Admin: 08/12/18 09:26 Dose: 50 mg Admin: 08/11/18 08:24 Dose: 50 mg Admin: 08/10/18 08:05 Dose: 50 mg Admin: 08/09/18 08:20 Dose: Admin: 08/08/18 08:06 Dose: 50 mg Admin: 08/07/18 09:35 Dose: 50 mg Admin: 08/06/18 08:32 Dose: 50 mg Admin: 08/05/18 09:52 Dose: 50 mg Morphine Sulfate (Morphine) 6 mg SUBCUT Q4H PRN PRN Reason: Pain (moderate 4-6) Last Admin: 08/12/18 09:33 Dose: 6 mg Admin: 08/11/18 15:48 Dose: 6 mg Admin: 08/11/18 09:40 Dose: 6 mg Admin: 08/10/18 23:58 Dose: 6 mg Admin: 08/10/18 01:36 Dose: 6 mg Admin: 08/09/18 16:07 Dose: 6 mg Multivitamins/Minerals (Thera M Plus) 1 tab PO DAILY [facility] Last Admin: 08/13/18 09:24 Dose: 1 tab Admin: 08/12/18 09:26 Dose: 1 tab Admin: 08/11/18 08:24 Dose: 1 tab Admin: 08/10/18 08:06 Dose: 1 tab Admin: 08/09/18 08:20 Dose: Admin: 08/08/18 08:06 Dose: 1 tab Admin: 08/07/18 09:35 Dose: 1 tab Admin: 08/06/18 09:44 Dose: 1 tab Sitagliptin Phosphate (Januvia) 50 mg PO DAILY [facility] Last Admin: 08/13/18 09:23 Dose: 50 mg Admin: 08/12/18 09:24 Dose: 50 mg Admin: 08/11/18 08:24 Dose: 50 mg Admin: 08/10/18 08:06 Dose: 50 mg Admin: 08/09/18 08:20 Dose: Admin: 08/08/18 08:05 Dose: 50 mg Admin: 08/07/18 09:34 Dose: 50 mg Admin: 08/06/18 08:32 Dose: 50 mg Admin: 08/05/18 09:51 Dose: 50 mg Sodium Chloride (Saline Flush) 10 ml FLUSH ASDIRECTED PRN PRN Reason: Keep Vein Open Last Admin: 08/13/18 04:24 Dose: 10 ml Admin: 08/12/18 21:45 Dose: 10 ml Admin: 08/12/18 10:51 Dose: 10 ml Admin: 08/12/18 04:19 Dose: 10 ml Admin: 08/12/18 00:25 Dose: 10 ml Admin: 08/11/18 10:45 Dose: 10 ml Admin: 08/10/18 18:03 Dose: 10 ml Admin: 08/10/18 01:40 Dose: 10 ml Admin: 08/09/18 12:04 Dose: 10 ml Admin: 08/09/18 10:41 Dose: 10 ml Admin: 08/08/18 09:25 Dose: 10 ml Admin: 08/08/18 08:01 Dose: 10 ml Admin: 08/08/18 01:02 Dose: 10 ml Admin: 08/07/18 18:24 Dose: 10 ml Admin: 08/07/18 11:10 Dose: 10 ml Admin: 08/07/18 11:09 Dose: 10 ml Admin: 08/07/18 09:48 Dose: 10 ml Admin: 08/07/18 02:14 Dose: 10 ml Admin: 08/06/18 17:18 Dose: 10 ml Admin: 08/06/18 10:51 Dose: 10 ml Admin: 08/06/18 09:45 Dose: 10 ml Admin: 08/06/18 06:22 Dose: 10 ml Admin: 08/06/18 00:06 Dose: 10 ml Admin: 08/05/18 20:06 Dose: 10 ml Admin: 08/05/18 18:30 Dose: 10 ml Admin: 08/05/18 12:03 Dose: 10 ml Tramadol HCl (Ultram) 50 mg PO Q4H PRN PRN Reason: Pain (mild 1-3) Last Admin: 08/13/18 02:12 Dose: 50 mg Admin: 08/12/18 21:44 Dose: 50 mg Admin: 08/10/18 15:43 Dose: 50 mg Admin: 08/10/18 08:02 Dose: 50 mg - Assessment Assessment (Free Text/Narrative):: Diverticulitis Repeat CT scan about the same WBC is normal CRP down to 3 - Plan Plan (Free Text/Narrative):: Attempted to call daughter and left message for her to call and discuss Options are limited to continue current treatment with IV antibiotics or proceed with major surgery (Sigmoid colectomy with colostomy)
[2018-08-13] MEDS: Isosorbide Mononitrate 30 MG Tab.ER PO SCH (18:17)
[2018-08-14] MEDS: Morphine 10 MG/ML SDV SUBCUT PRN ×2 (00:14→09:04)
[2018-08-14] MEDS: Sodium Chloride 0.9% 10 ML Syringe FLUSH PRN ×7 (05:09→12:19)
[2018-08-14] MEDS: Piperacillin/Tazobactam 3.375 GM in Sodium Chloride 0.9% 50 ML IV SCH ×2 (05:09→11:46)
[2018-08-14] MEDS ORDERED: Furosemide 20 MG/2 ML VIAL IVPUSH ONE (09:00)
[2018-08-14] MEDS: Carboxymethylcellulose Sodium 1% Ophth Gel 15 ML Bottle EYEBOTH SCH (09:37)
[2018-08-14 10:17] VITALS: BP 149/55
--- NOTE | 2018-08-14 12:11 | PCM.DCSUM1 ---
Discharge Summary - Hospital Course Free Text/Narrative:: Date of admission: 08/04/18 Date of transfer: 08/14/18 Consults: Gen. surgery, Dr. Negron. Procedures: Patient had CT of the abdomen and pelvis on 08/04, 08/08, 08/13. History of present illness: Patient is an 88-year-old male resident of [facility], previous smoker, his in 2002. He was diagnosed with some form of dementia in 1999 and has a history of chronic memory loss/cognitive impairment, cataracts, hard of hearing, macular degeneration. Communication is difficult. According to admission notes, the patient developed the sudden onset of left upper quadrant abdominal pain radiating to the lower quadrant on the day of admission. The pain gradually worsened over the next couple of hours and he had one episode of vomiting. He developed a fever and presented to the emergency department for further evaluation. White count was initially 17,000 with a left shift and CRP 24.7, and the patient was started on Zosyn. Initial CT scan done of the abdomen and pelvis at the time of admission really didn't show any evidence of inflammation although there was evidence of a couple small pseudocysts of the pancreas which did not appear to be inflammatory per report. The patient was admitted for further treatment and evaluation. Hospital course: His pain did not improve and surgery was consulted. 08/06 Flagyl was started and the patient continued to remain stable. He was eating and drinking, no diarrhea , but abdominal pain continued to be severe. Oxygen needs gradually increased and recurrent imaging showed bilateral pleural effusions likely secondary to volume overload. On 08/08, CT scan was repeated and showed diverticulitis of the mid descending colon with microperforation and extraluminal air question enterocutaneous fistula with abdominal wall cellulitis. At that point the patient was changed to Mefoxin which was continued for 48 hours and then the patient was changed back to Zosyn and both Flagyl and Mefoxin were discontinued. The patient's white count has continued to trend down as has CRP, but the patient's pain has not improved clinically. On the night prior to transfer, the patient passed a large blood clot about the size of a baseball. Was made nothing by mouth and hemoglobin was repeated at that time which was 15.3. Vital signs remained stable. The morning of transfer the patient had a second large bloody bowel movement which was really just liquid blood ~200 mL. Although the patient was asymptomatic with this and hemodynamically stable, he was transferred to the intensive care unit for further monitoring and typed and screened. Repeat hemoglobin at that time was unchanged. Overnight the patient's oxygen needs also increased with requiring 4 L of nasal cannula oxygen to keep sats greater than 90%. The patient was in no respiratory distress but was quite diminished in the bases bilaterally and so a 20 mg dose of IV Lasix was given. At the time of this dictation, he had had almost 600 mL out. Because the patient was a poor surgical candidate, general surgeon contacted the family the night prior to transfer to discuss whether or not the patient should go to a higher level of care or if we should be looking at medical management up to the point feasible here with the understanding that the patient may not survive without surgical intervention. The patient's daughter and power of business attorney Marcia Umaña wanted to discuss this further with other family members. The morning of transfer, I called and spoke with Marcia at length regarding options. At this point I feel it would be most prudent if we are going to consider pursuing aggressive care that the patient be transferred to a higher level of care because the surgeon here does not feel he is an appropriate surgical candidate for our facility. However the patient's age and comorbidities may make him a better candidate for withdrawing antibiotics at this point, seeing how he does and moving to comfort measures if he doesn't do well with this. The patient is a DNR/yes intubation but I don't have any documentation as to conversation regarding this and Marcia says they never talked about it. Ultimately after visiting with other family members Marcia decided to move forward with transfer for aggressive care at a higher level of care and I contacted [facility]; the patient was accepted for transfer at 11:[address] Rizo from the hospitalist service. On the day of transfer, the patient was cheerful and pleasant and didn't seem in any acute distress but did complain bitterly of left upper and lower abdominal pain on the side. He denied chest pain, shortness of breath, no nausea or vomiting. Had the 2 bloody stools as noted above and a few smears after that. Was typed and screened but no transfusion required, coags done which were fairly unremarkable, 2 IVs placed. VSS. - Discharge Data Discharge Date: 08/14/18 Discharge Disposition: DC/Tfer to Acute Hospital 02 Condition: Good - Patient Summary/Data Consults: Consultations 08/05/18 09:54 Consult to Physician [CONS] Urgent Consulting Provider: Nadir Rowe Courtesy Call Completed to Consulting Physician: No 08/09/18 07:15 Consult to Physician [CONS] Routine Consulting Provider: Wilber Matta Courtesy Call Completed to Consulting Physician: Yes - Discharge Plan *PRESCRIPTION DRUG MONITORING PROGRAM REVIEWED*: No *COPY OF PRESCRIPTION DRUG MONITORING REPORT IN PATIENT ROSEMARIE: Not Applicable Home Medications: Home Meds Acetaminophen [Tylenol] 650 mg PO Q4H PRN 05/21/13 [History] Carboxymethylcellulose Sodium [Refresh Liquigel 1%] 1 drop EYEBOTH TID 05/24/13 [History] Isosorbide Mononitrate [Isosorbide Mononitrate ER] 15 mg PO WITHDINNER 05/24/13 [History] SitaGLIPtin [Januvia] 50 mg PO DAILY 05/24/13 [History] Hydrocortisone/Aloe Vera [Hydrocortisone 1%] 1 applic TOP BID PRN 05/23/14 [ History] Magnesium Hydroxide [Milk of Magnesia] 30 ml PO DAILY PRN 05/23/14 [History] Multivit-Min/FA/Lycopene/Lut [Centrum Silver] 1 tab PO DAILY 05/23/14 [History] Clopidogrel [Plavix] 75 mg PO DAILY 06/28/14 [History] Simvastatin 20 mg PO WITHDINNER 06/28/14 [History] Bisacodyl 10 mg RC DAILY PRN 08/04/18 [History] Memantine HCl [Namenda] 10 mg PO BID 08/04/18 [History] Metoprolol Succinate [Toprol XL] 50 mg PO DAILY 08/04/18 [History] amLODIPine [Norvasc] 5 mg PO DAILY 08/04/18 [History] Aspirin [Halfprin] 81 mg PO DAILY 08/05/18 [History] Triamcinolone Acetonide [Triamcinolone Acetonide 0.1% Crm] 1 applic TOP BID PRN 08/05/18 [History] Patient Handouts: Diverticulitis, [id number], Type 2 Diabetes Mellitus, Self Care, Adult, Deep Vein Thrombosis Forms: ED Department Discharge Referrals: Hernan Dhaliwal MD [Primary Care Provider] - - Discharge Summary/Plan Comment DC Time >30 min.: Yes - General Info Date of Service: 08/14/18 - Patient Data Vitals - Most Recent: Last Vital Signs Temp 36.4 C 08/14/18 08:20 Pulse 59 L 08/14/18 10:00 Resp 17 08/14/18 10:00 BP 149/55 H 08/14/18 10:00 Pulse Ox 91 L 08/14/18 10:00 Weight - Most Recent: 77.519 kg I&O - Last 24 hours: Intake & Output 08/13/18 08/14/18 08/14/18 22:59 06:59 14:59 Intake Total 87 40 Output Total 1050 Balance 87 40 -1050 Lab Results - Last 24 hrs: Laboratory Results - last 24 hr 08/13/18 08/13/18 08/13/18 Range/Units 19:28 23:59 23:59 WBC 9.8 (4.5-12.0) X10-3/uL RBC 5.14 (4.30-5.75) x10(6)uL Hgb 15.3 (11.5-15.5) g/dL Hct 45.9 (30.0-51.3) % MCV 89.2 (80-96) fL MCH 29.8 (27.7-33.6) pg MCHC 33.4 (32.2-35.4) g/dL RDW 14.6 (11.5-15.5) % Plt Count 260 (125-369) X10(3)uL MPV (7.4-10.4) fL Neut % (Auto) (46-82) % Lymph % (Auto) (13-37) % Floyd % (Auto) (4-12) % Eos % (Auto) (1.0-5.0) % Baso % (Auto) (0-2) % Neut # (Auto) (1.6-8.3) # Lymph # (Auto) (0.6-5.0) # Floyd # (Auto) (0.0-1.3) # Eos # (Auto) (0.0-0.8) # Baso # (Auto) (0.0-0.2) # PT 12.7 H (8.7-11.1) INR 1.31 H (0.89-1.13) APTT (24.4-33.2) SECONDS Sodium (135-145) mmol/L Potassium (3.5-5.3) mmol/L Chloride (100-110) mmol/L Carbon Dioxide (21-32) mmol/L BUN (7-18) mg/dL Creatinine (0.70-1.30) mg/dL Est Cr Clr Drug Dosing mL/min Estimated GFR (MDRD) (>60) BUN/Creatinine Ratio (9-20) Glucose (80-116) mg/dL Calcium (8.6-10.2) mg/dL Total Bilirubin (0.1-1.3) mg/dL AST (5-25) IU/L ALT (12-36) U/L Alkaline Phosphatase (56-112) IU/L Total Protein (6.0-8.0) g/dL Albumin (3.2-4.6) g/dL Globulin g/dL Albumin/Globulin Ratio Urine Color Yellow (YELLOW) Urine Appearance Clear (CLEAR) Urine pH 7.0 H (5.0-6.5) Ur Specific Jasper 1.010 (1.010-1.025) Urine Protein 30 H (NEGATIVE) mg/dL Urine Glucose (UA) Normal (NEGATIVE) mg/dL Urine Ketones 50 H (NEGATIVE) mg/dL Urine Occult Blood Negative (NEGATIVE) Urine Nitrite Negative (NEGATIVE) Urine Bilirubin Negative (NEGATIVE) Urine Urobilinogen Normal (NEGATIVE) mg/dL Ur Leukocyte Esterase Negative (NEGATIVE) Urine RBC 5-10 (0) Urine WBC 0-5 (0) Ur Squamous Epith Cells Occasional (NS,R,O) Urine Bacteria Few H (NS) Urine Mucus Few H (NS) 08/14/18 08/14/18 08/14/18 Range/Units 08:10 08:10 08:10 WBC 9.8 (4.5-12.0) X10-3/uL RBC 5.10 (4.30-5.75) x10(6)uL Hgb 15.3 (11.5-15.5) g/dL Hct 45.7 (30.0-51.3) % MCV 89.6 (80-96) fL MCH 30.0 (27.7-33.6) pg MCHC 33.5 (32.2-35.4) g/dL RDW 14.7 (11.5-15.5) % Plt Count 272 (125-369) X10(3)uL MPV 7.1 L (7.4-10.4) fL Neut % (Auto) 58.0 (46-82) % Lymph % (Auto) 30.2 (13-37) % Floyd % (Auto) 9.5 (4-12) % Eos % (Auto) 2 (1.0-5.0) % Baso % (Auto) 1 (0-2) % Neut # (Auto) 5.6 (1.6-8.3) # Lymph # (Auto) 3.0 (0.6-5.0) # Floyd # (Auto) 0.9 (0.0-1.3) # Eos # (Auto) 0.2 (0.0-0.8) # Baso # (Auto) 0.1 (0.0-0.2) # PT 11.8 H (8.7-11.1) INR 1.22 H (0.89-1.13) APTT 25.8 (24.4-33.2) SECONDS Sodium 145 (135-145) mmol/L Potassium 3.5 (3.5-5.3) mmol/L Chloride 110 (100-110) mmol/L Carbon Dioxide 28 (21-32) mmol/L BUN 14 (7-18) mg/dL Creatinine 0.9 (0.70-1.30) mg/dL Est Cr Clr Drug Dosing 53.04 mL/min Estimated GFR (MDRD) > 60 (>60) BUN/Creatinine Ratio 15.6 (9-20) Glucose 77 L (80-116) mg/dL Calcium 7.9 L (8.6-10.2) mg/dL Total Bilirubin 0.4 (0.1-1.3) mg/dL AST 23 D (5-25) IU/L ALT 20 D (12-36) U/L Alkaline Phosphatase 45 L (56-112) IU/L Total Protein 5.6 L (6.0-8.0) g/dL Albumin 2.2 L (3.2-4.6) g/dL Globulin 3.4 g/dL Albumin/Globulin Ratio 0.7 Urine Color (YELLOW) Urine Appearance (CLEAR) Urine pH (5.0-6.5) Ur Specific Jasper (1.010-1.025) Urine Protein (NEGATIVE) mg/dL Urine Glucose (UA) (NEGATIVE) mg/dL Urine Ketones (NEGATIVE) mg/dL Urine Occult Blood (NEGATIVE) Urine Nitrite (NEGATIVE) Urine Bilirubin (NEGATIVE) Urine Urobilinogen (NEGATIVE) mg/dL Ur Leukocyte Esterase (NEGATIVE) Urine RBC (0) Urine WBC (0) Ur Squamous Epith Cells (NS,R,O) Urine Bacteria (NS) Urine Mucus (NS) Med Orders - Current: Current Medications Acetaminophen (Tylenol) 650 mg PO Q6H PRN PRN Reason: Fever Last Admin: 08/12/18 09:27 Dose: 650 mg Amlodipine Besylate (Norvasc) 5 mg PO DAILY [facility] Last Admin: 08/13/18 09:24 Dose: 5 mg Artificial Tears (Refresh Liquigel 1%) 0 ml EYEBOTH TID [facility] Last Admin: 08/14/18 09:37 Dose: 1 drop Piperacillin Sod/Tazobactam (Sod 3.375 gm/ Sodium Chloride) 50 mls @ 100 mls/ hr IV Q6H [facility] Last Admin: 08/14/18 11:46 Dose: 100 mls/hr Isosorbide Mononitrate (Imdur) 15 mg PO WITHDINNER [facility] Last Admin: 08/13/18 18:17 Dose: 15 mg Magnesium Hydroxide (Milk Of Magnesia) 30 ml PO DAILY PRN PRN Reason: Constipation Memantine (Namenda) 10 mg PO BID [facility] Last Admin: 08/13/18 20:51 Dose: 10 mg Metoprolol Succinate (Toprol Xl) 50 mg PO DAILY [facility] Last Admin: 08/13/18 09:24 Dose: 50 mg Morphine Sulfate (Morphine) 6 mg SUBCUT Q4H PRN PRN Reason: Pain (moderate 4-6) Last Admin: 08/14/18 09:04 Dose: 6 mg Multivitamins/Minerals (Thera M Plus) 1 tab PO DAILY [facility] Last Admin: 08/13/18 09:24 Dose: 1 tab Sitagliptin Phosphate (Januvia) 50 mg PO DAILY [facility] Last Admin: 08/13/18 09:23 Dose: 50 mg Sodium Chloride (Saline Flush) 10 ml FLUSH ASDIRECTED PRN PRN Reason: Keep Vein Open Last Admin: 08/14/18 09:30 Dose: 10 ml Tramadol HCl (Ultram) 50 mg PO Q4H PRN PRN Reason: Pain (mild 1-3) Last Admin: 08/13/18 20:51 Dose: 50 mg Discontinued Medications Amoxicillin (Amoxil) 500 mg PO Q8H [facility] Last Admin: 08/09/18 00:52 Dose: Not Given Aspirin (Aspirin) 81 mg PO DAILY [facility] Last Admin: 08/13/18 09:23 Dose: 81 mg Cefoxitin Sodium (Mefoxin) 1 gm IV Q8H [facility] Last Admin: 08/10/18 04:02 Dose: 1 gm Clopidogrel Bisulfate (Plavix) 75 mg PO DAILY [facility] Last Admin: 08/13/18 09:24 Dose: 75 mg Furosemide (Lasix) 20 mg IVPUSH NOW ONE Stop: 08/05/18 17:14 Last Admin: 08/05/18 17:34 Dose: 20 mg Furosemide (Lasix) 20 mg IVPUSH NOW ONE Stop: 08/14/18 09:01 Last Admin: 08/14/18 09:30 Dose: 20 mg Hydromorphone HCl (Dilaudid) 0.5 mg IVPUSH ONETIME ONE Stop: 08/04/18 22:16 Last Admin: 08/04/18 23:21 Dose: 0.5 mg Hydromorphone HCl (Dilaudid) 0.5 mg IVPUSH Q6H PRN PRN Reason: Pain Last Admin: 08/05/18 06:36 Dose: 0.5 mg Sodium Chloride (Normal Saline) 500 mls @ 500 mls/hr IV .BOLUS ONE Stop: 08/04/18 23:14 Last Admin: 08/04/18 23:20 Dose: 500 mls/hr Piperacillin Sod/Tazobactam (Sod 3.375 gm/ Sodium Chloride) 50 mls @ 100 mls/ hr IV .ONCE ONE Stop: 08/04/18 23:51 Last Admin: 08/04/18 23:27 Dose: 100 mls/hr Sodium Chloride (Normal Saline) 1,000 mls @ 100 mls/hr IV ASDIRECTED [facility] Last Admin: 08/05/18 01:13 Dose: 100 mls/hr Piperacillin Sod/Tazobactam (Sod 3.375 gm/ Sodium Chloride) 50 mls @ 100 mls/ hr IV Q6H [facility] Last Admin: 08/06/18 06:22 Dose: 100 mls/hr Levofloxacin/Dextrose 500 mg/ (Premix) 100 mls @ 100 mls/hr IV ONETIME ONE Stop: 08/06/18 10:59 Last Admin: 08/06/18 11:09 Dose: 100 mls/hr Metronidazole 500 mg/ Premix 100 mls @ 100 mls/hr IV Q8H [facility] Last Admin: 08/08/18 08:14 Dose: 100 mls/hr Levofloxacin/Dextrose 250 mg/ (Premix) 50 mls @ 50 mls/hr IV Q24H [facility] Last Admin: 08/07/18 11:08 Dose: 50 mls/hr Cefoxitin Sodium 1 gm/ Sodium (Chloride) 50 mls @ 100 mls/hr IVPUSH Q8H [facility] Last Admin: 08/09/18 12:16 Dose: Not Given Metronidazole 500 mg/ Premix 100 mls @ 100 mls/hr IV Q8H [facility] Last Admin: 08/10/18 10:52 Dose: 100 mls/hr Lactated Ringer's (Ringers, Lactated) 1,000 mls @ 100 mls/hr IV ASDIRECTED [facility] Last Admin: 08/10/18 20:11 Dose: 100 mls/hr Metronidazole (Flagyl 500 Mg In Ns 100 Ml) Confirm Administered Dose 100 mls @ as directed .ROUTE .[facility] Stop: 08/10/18 00:34 Last Admin: 08/10/18 01:12 Dose: Not Given Cefoxitin Sodium (Mefoxin In Dextrose,Iso-Osm 1 Gm/50 Ml) Confirm Administered Dose 50 mls @ as directed .ROUTE .[facility] ONE Stop: 08/10/18 03:55 Last Admin: 08/10/18 04:21 Dose: Not Given Cefoxitin Sodium (Mefoxin In Dextrose,Iso-Osm 1 Gm/50 Ml) 50 mls @ 100 mls/hr IV Q8H [facility] Last Admin: 08/10/18 12:51 Dose: 100 mls/hr Sodium Chloride (Normal Saline) 250 mls @ 100 mls/hr IV ASDIRECTED [facility] Stop: 08/12/18 00:59 Sodium Chloride (Normal Saline) 250 mls @ 100 mls/hr IV ASDIRECTED [facility] Iopamidol (Isovue-370 (76%)) 75 ml IV ONETIME ONE Stop: 08/04/18 23:00 Last Admin: 08/04/18 23:15 Dose: 75 ml Iopamidol (Isovue-370 (76%)) 100 ml IV . DIRECTED ONE Stop: 08/08/18 14:54 Last Admin: 08/08/18 15:25 Dose: 100 ml Ketorolac Tromethamine (Toradol) 15 mg IVPUSH Q6H PRN PRN Reason: Pain Stop: 08/10/18 09:55 Last Admin: 08/08/18 08:03 Dose: 15 mg Metoprolol Succinate (Toprol Xl) 50 mg PO DAILY [facility] Morphine Sulfate (Morphine) 2 mg IVPUSH ONETIME ONE Stop: 08/09/18 01:35 Last Admin: 08/09/18 02:08 Dose: 2 mg Morphine Sulfate (Morphine) 6 mg SUBCUT Q4H PRN PRN Reason: Pain (moderate 4-6) Morphine Sulfate (Morphine Sulfate) 2 mg IVPUSH Q4H PRN PRN Reason: Pain (severe 7-10) Last Admin: 08/10/18 08:01 Dose: 2 mg Ondansetron HCl (Zofran) 4 mg IVPUSH ONETIME ONE Stop: 08/04/18 22:17 Last Admin: 08/04/18 23:21 Dose: 4 mg Ondansetron HCl (Zofran) 4 mg IVPUSH Q6H PRN PRN Reason: Nausea/Vomiting Pantoprazole Sodium (Protonix) 40 mg PO 0600 [facility] Last Admin: 08/08/18 05:35 Dose: 40 mg - Exam General: Reports: Alert, Cooperative, No Acute Distress HEENT: Reports: Pupils Equal, Pupils Reactive, EOMI Neck: Reports: Supple, No JVD Lungs: Reports: Decreased Breath Sounds (very diminished at the bases.) Cardiovascular: Reports: Regular Rate, Regular Rhythm, No Murmurs GI/Abdominal Exam: Soft, Tender (Exquisitely tender left upper and lower quadrants but no guarding or rigidity. No redness on the skin of the abd wall.) , Abnormal Bowel Sounds (hyperactive BS.) Extremities: No Pedal Edema Skin: Reports: Warm, Dry Psy/Mental Status: Reports: Alert, Normal Mood
== END 2018-08-14 12:40 | DRG 391 ==
LOC: FB.ED 22:08 → FB.MS 23:56 → FB.ICU 08-14 08:20
PROVIDERS: ADMIT Family Medicine; ATTEND Family Medicine
DX: K57.20 Diverticulitis of large intestine with perforation and abscess without bleeding (principal); K57.90 Diverticulosis of intestine, part unspecified, without perforation or abscess without bleeding; J18.9 Pneumonia, unspecified organism; N39.0 Urinary tract infection, site not specified; J44.0 Chronic obstructive pulmonary disease with (acute) lower respiratory infection; Z66 Do not resuscitate; B95.4 Other streptococcus as the cause of diseases classified elsewhere; I10 Essential (primary) hypertension; E11.9 Type 2 diabetes mellitus without complications; J44.9 Chronic obstructive pulmonary disease, unspecified; R50.9 Fever, unspecified; Z99.81 Dependence on supplemental oxygen; G30.9 Alzheimer's disease, unspecified; F02.80 Dementia in other diseases classified elsewhere, unspecified severity, without behavioral disturbance, psychotic disturbance, mood disturbance, and anxiety; Z79.84 Long term (current) use of oral hypoglycemic drugs; H91.90 Unspecified hearing loss, unspecified ear; Z87.891 Personal history of nicotine dependence; I25.10 Atherosclerotic heart disease of native coronary artery without angina pectoris; E78.5 Hyperlipidemia, unspecified; Z95.1 Presence of aortocoronary bypass graft; H54.7 Unspecified visual loss; M19.90 Unspecified osteoarthritis, unspecified site; Z79.82 Long term (current) use of aspirin; R10.32 Left lower quadrant pain; H35.30 Unspecified macular degeneration
CPT/HCPCS: 36415; 71046; 74176; 74177; 74178; 80048; 80053; 81001; 82150; 82962; 83605; 85025; 85027; 85610; 85651; 85730; 86140; 86850; 86900; 86901; 87040; 87086; 96365; 96375; 99284; 99285; A9270-GY; J0694; J1170; J1885; J1940; J1956; J2270; J2405; J2543; J3490; J7030; J7040; J7050; J7120; Q9967